=== PATIENT | female | born 1935 | race Caucasian/White ===

== ENCOUNTER → 2016-09-29 | Outpatient (CLI) | payer OTHER, BC ==
[2015-10-02 10:05] VITALS: BP 129/79
--- NOTE | 2016-09-29 12:05 | MRI ---
Indication: Right shoulder pain. Exam: MRI right shoulder without contrast. Technique: Routine multiplanar multisequence imaging was performed through the right shoulder withou t contrast. Comparison: X-rays from 08/17/2013. Findings: The glenohumeral joint is intact. There is a small focal defect in the distal supraspinatu s tendon measuring and least 1.2 cm with slight retraction of the proximal tendon and fluid signal s een throughout the defect . There is mild fluid extending into the surrounding subacromion and subde ltoid bursa. There is mild thickening and increased signal throughout the infraspinatus and subscapu anastasia tendons which are otherwise intact. There is some all subchondral cysts or erosive changes emilio ng the greater tuberosity. No fracture or subluxation is seen. There are moderate hypertrophic purcell es of the AC joint extending inferiorly causing moderate to severe narrowing of the acromiohumeral s pace. The labrum is intact and normal signal intensity. There is mild linear signal in the biceps te ndon which is otherwise intact distally. Impression: Small full-thickness tear of the distal supraspinatus tendon. Moderate infraspinatus and subscapularis tendinopathy. Questionable mild split thickness tear of the biceps tendon . Small joint effusion with mild fluid is extending into the surrounding bursa. Moderate hypertrophic changes of the AC joint extending inferiorly causing moderate to severe narrow ing of the acromiohumeral space. Subchondral cysts or erosive changes along the greater tuberosity. Reported By:
--- NOTE | 2016-09-29 13:25 | MRI ---
HISTORY: Lumbar disc disease, chronic low back pain Study: MRI lumbar spine without contrast Comparison: None Technique: Multiplanar multi-sequence MRI of the lumbar spine was obtained. Sagittal T1, sagittal T 2, and stir weighted images, axial T1, and axial T2 images were obtained. Findings: There is mild lumbar dextroscoliosis. There is grade 1 anterolisthesis of L4 on L5 due to facet dege nerative changes. No abnormal cord or marrow signal identified. The conus terminates at approximate ly T12-L1. The surrounding soft tissues are within normal limits. Vertebral body heights are preser ayan. Multilevel disc space narrowing and spondylosis is present detailed below. T12 -- L1: No significant stenosis identified. L1 -- L2: No significant stenosis identified. Mild to moderate bilateral facet degenerative changes. L2 -- L3: There is a broad-based disc bulge asymmetric to the left with resultant mild to moderate l eft and mild right foraminal narrowing. No significant central canal stenosis. L3 -- L4: There is a broad-based disc bulge and moderate bilateral facet degenerative changes. There is mild bilateral lateral recess and foraminal narrowing. L4 -- L5: There are advanced facet degenerative changes bilaterally with resultant grade 1 anterolis thesis. There is moderate left and moderate to severe right foraminal narrowing as a result as well as mild central canal narrowing with effacement of ventral thecal sac. L5 -- S1: There is a small central annular tear with mild bulging. No significant mass effect. There are facet degenerative changes. No new listhesis. IMPRESSION: 1. At L4-L5 there is moderate left and moderate to severe right foraminal narrowing due to a broad-b ased disc bulge and facet hypertrophic changes. There is also grade 1 anterolisthesis. 2. Mild to moderate left foraminal narrowing at L2-L3. 3. Small annular tear with central disc bulge at L5-S1 without significant mass effect. Reported By:
== END ==
LOC: RAD 09:36
PROVIDERS: ATTEND Internal Medicine
DX: M25.811 Other specified joint disorders, right shoulder (principal); M51.86 Other intervertebral disc disorders, lumbar region
CPT/HCPCS: 72148; 73221

== ENCOUNTER 2016-12-16 09:08 | Emergency (ER) | payer OTHER, BC ==
[2016-12-16 09:18] VITALS: BP 129/63; BMI 28.3
--- NOTE | 2016-12-16 09:24 | DR.EXTPAIN ---
HPI - Time seen Time seen: 09:21 - PCP Primary Care Physician: NEFTALI - Complaint/Symptoms Chief Complaint:: PT. C/O LEFT WRIST, RIGHT LOWER BACK AND RIGHT HIP PAIN S/P FALL. - Nurses notes reviewed Nurses Notes Review: Yes - Source History Provided: Patient, EMS - Mode of arrival Mode of Arrival: EMS - Timing Onset of Chief Complaint: 12/16/16 - Context History of: Arthritis - Associated signs and symptoms Associated Signs and Symptoms: Pain PMH - PMH Past Medical History: Yes Past Medical History: Arthritis, Coronary Artery Disease, GERD Past Medical History Comment: SJOGREN'S SYNDROME, TORN ROTATOR CUFF TO RIGHT SHOULDER Past Surgical History: Yes Surgical History: Angioplasty/Stents, Cholecystectomy, Hysterectomy, Joint Replacement, Ortho Surgery, Tonsillectomy - Family History History of Family Medical Conditions: No - Social History Does patient currently use any type of tobacco product: No Have you used tobacco products in the last 12 months: No Type of Tobacco Use: None Does any household member use tobacco: No Alcohol Use: None Do you use any recreational Drugs:: No Lives With: Spouse Lives Where: Home - infectious screening In the last 2 months have you had wt loss of >10#?: NO Have you had fever, night sweats or hemotysis?: No Have you traveled outside the country in the last 6 months?: No Isolation: Standard ROS - Review of Systems Constitutional: No Symptoms Reported Eyes: No Symptoms Reported ENTM: No Symptoms Reported Respiratoy: No Symptoms Reported Cardiovascular: No Symptoms Reported Gastrointestinal/Abdominal: No Symptoms Reported Genitourinary: No Symptoms Reported Neurological: No Symptoms Reported Musculoskeletal: Wrist (left wrist pain, full rom) Integumentary: Wound (skin tear) Hematologic/Lymphatic: No Symptoms Reported Endocrine: No Symptoms Reported Psychiatric: No Symptoms Reported All Other Systems: Reviewed and Negative PE - General Limitations: No Limitations General Appearance: Alert, In No Apparent Distress - Head Head Exam: Normal Inspection - Eyes Eye exam: Normal Appearance, EOMI. negative: Scleral Icterus, Conjunctival Injection - ENT ENT Exam: Normal Exam, Normal Oropharynx - Neck Neck Exam: Normal Inspection, Full ROM, Trachea Midline - Chest Chest Inspection: Normal Inspection - Respiratory Respiratory Exam: Normal Lung Sounds Bilat. negative: Accessory Muscle Use, Respiratory Distress - Cardiovascular Cardiovascular Exam: Regular Rate - Abdominal Exam Abdominal Exam: Normal Inspection - Extremities Extremities Exam: Normal Inspection, Full ROM, Tenderness (left wrist and right hip) - Upper Extremities Shoulder Exam: Normal Inspection Arm Exam: Normal Inspection, Full ROM. negative: Swelling Elbow Exam: Normal Inspection Forearm Exam: Normal Inspection Hand Exam: Normal Inspection, Full ROM, Tenderness (left wrist). negative: Swelling, Abrasion Neuromotor Exam: Normal Exam Neurosensory Exam: Normal Exam - Lower Extremities Hip/Pelvis Exam: Normal Inspection Upper Leg Exam: Normal Inspection Knee Exam: Normal Inspection, Full ROM. negative: Tenderness, Swelling, Abrasion Lower Leg Exam: Normal Inspection, Full ROM. negative: Tenderness, Swelling Ankle Exam: Normal Inspection, Full ROM. negative: Tenderness, Swelling, Abrasion, Ecchymosis Neurovascular/Tendon Exam: Normal Capillary Refill Gait Exam: Not Tested/Not Observed - Back Back Exam: Normal Inspection, Tenderness - Neurological Neurological Exam: Alert, Oriented X3, CN II-XII Intact - Psychiatric Psychiatric Exam: Normal Mood - Skin Skin Exam: Intact, Normal Color - Discharge Plan Condition: Stable Prescriptions: Hydrocodone-Acet 5 mg/325 mg [[place] 5/325 mg Tab] 1 tab PO Q8H PRN #12 tab PRN Reason: Ibuprofen [MOTRIN TAB 600 MG *] 600 mg PO BID PRN #14 tab PRN Reason: Pain/Inflammation - Follow ups/Referrals Follow ups/Referrals: Brendan Mccollum [Primary Care Provider] - 3 days STARLA HAYWARD [STAFF PHYSICIAN] - 12/17/16 - Instructions Instructions: Wrist Fracture, [id number], Skin Tear Care, [id number], Back Pain, Adult, [id number], Hip Pain Additional Instructions: RETURN TO ED IF WORSE.
--- NOTE | 2016-12-16 09:37 | RAD ---
HISTORY: Injury, fall, left wrist pain Study: Left wrist three view Comparison: None Findings: There is some dorsal soft tissue swelling present. There appears to be trabecular disruption involvi ng the metaphysis of the distal radius suggestive of a nondisplaced fracture. The distal ulna is int act. The carpal bones are intact and normally aligned. There is some degenerative joint disease on t he radial side of the carpus. IMPRESSION: Trabecular disruption involving the metaphysis of the distal radius likely representing a nondisplac ed metaphysis heel fracture Dorsal soft tissue swelling Degenerative joint disease as described Reported By:
[2016-12-16] MEDS ORDERED: ZOFRAN INJ 4 MG VIAL IVP ONE (10:01)
[2016-12-16] MEDS ORDERED: DEMEROL INJ IVP ONE (10:01)
--- NOTE | 2016-12-16 10:02 | RAD ---
History: Right hip pain after fall Study: AP pelvis and frog-leg right hip Comparison: None Findings: There is no fracture or dislocation. There is mild osteophyte formation about the right hi p. The pubic rami are intact. No pelvic fracture is demonstrated. Impression: Mild right hip osteoarthritis, no evidence for fracture. Reported By:
[2016-12-16] MEDS ORDERED: ZOFRAN INJ 4 MG VIAL ONE (10:03)
[2016-12-16] MEDS ORDERED: DEMEROL INJ ONE (10:04)
== END 2016-12-16 11:41 | disposition home or self-care (01) ==
LOC: ER 09:08
DX: M25.532 Pain in left wrist (principal); M54.5 Low back pain; M25.551 Pain in right hip
CPT/HCPCS: 29125; 73100; 73501; 96365; 96374; 96375; 99282; 99283; J2175; J2405

== ENCOUNTER → 2017-01-07 | Outpatient (CLI) | payer OTHER, BC ==
[2016-12-16 09:18] VITALS: BP 129/63
--- NOTE | 2017-01-11 08:37 | MRI ---
HISTORY: Low back pain, paresthesias Study: MRI lumbar spine without contrast Comparison: September 29, 2016 Technique: Multiplanar multi-sequence MRI of the lumbar spine was obtained. Sagittal T1, sagittal T 2, and stir weighted images, axial T1, and axial T2 images were obtained. Findings: There is minimal anterolisthesis L4 on L5. The lumbar spine demonstrates otherwise normal alignment with the expected signal characteristics of the bone marrow with the exception of increased T2 signa l in a compression fracture of L1 which is new since the prior examination and likely recent. The co nus of the cord terminates normally. T12 -- L1: There is no evidence for compressive disc disease. However the posterior aspect of the co mpressed vertebral body contributes to moderate canal stenosis and significant lateral recess and so me foraminal narrowing on the right. L1 -- L2: No evidence for compressive disc disease. The neural foramina are patent. Bilateral facet arthropathy is present. L2 -- L3: Circumferential disk bulging causes thecal sac effacement and contributes along with bilat eral facet arthropathy to lateral recess and foraminal narrowing bilaterally right greater than left . L3 -- L4: Circumferential disk bulging effaces the thecal sac and contributes along with bilateral f acet arthropathy and ligamentous hypertrophy to a relative spinal stenosis with lateral recess and f oraminal narrowing bilaterally. L4 -- L5: There is minimal anterolisthesis L4 on L5 which contributes along with diffuse disc bulgin g and ligamentous hypertrophy to a relative spinal stenosis with lateral recess and foraminal narrow ing bilaterally worse than at the level above. Bilateral facet arthropathy is present. L5 -- S1: Minimal noncompressive disc bulging is present contributing to lateral recess narrowing on the right. The left neural foramen is patent. The joints are normal. IMPRESSION: As above Reported By:
== END | disposition home or self-care (01) ==
LOC: RAD 14:48
PROVIDERS: ATTEND Internal Medicine
DX: M54.5 Low back pain (principal); M54.6 Pain in thoracic spine; X58.XXXD Exposure to other specified factors, subsequent encounter; M48.06 Spinal stenosis, lumbar region; M12.88 Other specific arthropathies, not elsewhere classified, other specified site
CPT/HCPCS: 72148

== ENCOUNTER → 2017-01-08 | Outpatient (CLI) | payer OTHER, BC ==
[2016-12-16 09:18] VITALS: BP 129/63
== END | disposition home or self-care (01) ==
LOC: RAD 10:47
PROVIDERS: ATTEND Internal Medicine
DX: M54.5 Low back pain (principal); M54.6 Pain in thoracic spine; S32.010A Wedge compression fracture of first lumbar vertebra, initial encounter for closed fracture; X58.XXXA Exposure to other specified factors, initial encounter
CPT/HCPCS: 72146

== ENCOUNTER → 2017-01-14 | Outpatient (CLI) | payer OTHER, BC ==
[2016-12-16 09:18] VITALS: BP 129/63
[2017-01-14 15:23] LABS: BASOPHILS % (AUTO) 0.6 % (0.2-1.0); EOSINOPHILS # (AUTO) 0.1 x10^3/uL (0.0-0.2); EOSINOPHILS % (AUTO) 1.1 % (0.9-2.9); HEMATOCRIT 41.3 % (36.0-47.0); HEMOGLOBIN 14.1 g/dL (12.0-16.0); LYMPHOCYTES # (AUTO) 1.9 X10^3/uL (1.3-2.9); MEAN CORPUSCULAR HEMOGLOBIN 31.2 pg (27.0-34.0); MEAN CORPUSCULAR HGB CONC 34.1 g/dL (33.0-35.0); MEAN CORPUSCULAR VOLUME 91.5 fL (80.0-100.0); MEAN PLATELET VOLUME 7.3 fL (7.4-11.0); MONOCYTES # (AUTO) 0.4 x10^3/uL (0.3-0.8); MONOCYTES % (AUTO) 8.9 % (0.0-13.0); NEUTROPHILS # (AUTO) 2.6 x10^3/uL (2.2-4.8); NEUTROPHILS % (AUTO) 52.4 % (42.0-75.0); PLATELET COUNT 174 X10^3/uL (150.0-450.0); RED BLOOD COUNT 4.52 X10^6/uL (3.5-5.4); RED CELL DISTRIBUTION WIDTH 14.5 % (11.6-16.5)
[2017-01-14 15:32] LABS: BILIRUBIN,URINE NEGATIVE (NEGATIVE); BLOOD/HEMOGLOBIN,URINE 1+ (NEGATIVE); GLUCOSE, URINE NEGATIVE (NEGATIVE); KETONES,URINE NEGATIVE (NEGATIVE); LEUKOCYTE ESTERASE ,URINE 1+ (NEGATIVE); NITRITES,URINE NEGATIVE (NEGATIVE); UROBILINOGEN,URINE NORMAL (NORMAL)
--- NOTE | 2017-01-14 15:32 | RAD ---
HISTORY: Preop. Study: PA and lateral chest. Comparison: Chest x-ray dated November 06, 2012. Findings: The trachea is midline. The cardiac silhouette is unremarkable. Ectatic thoracic aorta with calcifi cation at the aortic knob. Left basilar scarring versus atelectasis appears unchanged. The lungs ar e clear without focal infiltrate or effusion. The bony thorax is unremarkable. IMPRESSION: 1. No acute cardiopulmonary disease. Reported By:
[2017-01-14 15:38] LABS: PROTEIN,URINE NEGATIVE (NEGATIVE)
[2017-01-14 15:44] LABS: ALANINE AMINOTRANSFERASE 33 Units/L (12-78); ALBUMIN 3.7 g/dL (3.4-5.0); ALKALINE PHOSPHATASE 124 Units/L (46-116); ASPARTATE AMINO TRANSFERASE 26 Units/L (15-37); BLOOD UREA NITROGEN 11 mg/dL (7-18); CALCIUM 9.6 mg/dL (8.5-10.1); CARBON DIOXIDE 29.7 mmol/L (21-32); CHLORIDE 106 mmol/L (98-107); CREATININE 0.84 mg/dL (0.55-1.02); GLUCOSE 91 mg/dL (65-99); SODIUM 138 mmol/L (136-145); TOTAL PROTEIN 7.2 g/dL (6.4-8.2); eGFR BLACK RACES > 60 (>60); eGFR NON BLACK RACES > 60 (>60)
[2017-01-14 16:13] LABS: APPEARANCE,URINE CLEAR (CLEAR); COLOR,URINE PALE YELLOW (YELLOW)
[2017-01-14 16:14] LABS: BACTERIA,URINE TRACE /HPF (NEGATIVE); RBC,URINE RARE /HPF (NEGATIVE); SQUAMOUS EPITHELIAL CELL,UR FEW /HPF (NEGATIVE)
== END | disposition home or self-care (01) ==
LOC: LAB 14:38
PROVIDERS: ATTEND Specialist
DX: Z01.818 Encounter for other preprocedural examination (principal); Z01.810 Encounter for preprocedural cardiovascular examination; Z01.811 Encounter for preprocedural respiratory examination; Z79.899 Other long term (current) drug therapy; Z11.8 Encounter for screening for other infectious and parasitic diseases; S52.532S Colles' fracture of left radius, sequela; X58.XXXS Exposure to other specified factors, sequela
CPT/HCPCS: 36415; 71020; 80053; 81001; 85025; 87641; 93005; 93010

== ENCOUNTER 2017-01-20 08:55 | Day surgery (SDC) | payer OTHER, BC ==
[~2017-01-20 08:55] MED LIST: ANCEF VIAL 1 GM ONE; D5 LR 1000 ML 1,000 ML IV ONE; NS 50 ML IV + SPIKE MINIBAG* 50 ML IV ONE; XYLOCAINE-MPF 1% ONE
[2017-01-20] MEDS ORDERED: D5 LR 1000 ML 1,000 ML IV ONE (09:06)
[2017-01-20] MEDS ORDERED: FENTANYL INJ 100 mcg ONE (09:39)
[2017-01-20] MEDS ORDERED: NS IRRIGATION 1000 ML 1,000 ML IR ONE (09:59)
[2017-01-20] MEDS ORDERED: MARCAINE 0.25% WITH EPI IJ ONE (09:59)
[2017-01-20 12:35] VITALS: BP 112/66
[2017-01-20] MEDS ORDERED: VERSED ONE (15:07)
[2017-01-20] MEDS ORDERED: XYLOCAINE 2 % (PLAIN) ONE (15:07)
[2017-01-20] MEDS ORDERED: KETALAR ONE (15:07)
[2017-01-20] MEDS ORDERED: DIPRIVAN VIAL ONE (15:07)
== END 2017-01-20 11:55 | disposition home or self-care (01) | DRG 517 ==
LOC: SURG1 08:55
PROVIDERS: ATTEND Specialist
PROC: 0QU03JZ Supplement Lumbar Vertebra with Synthetic Substitute, Percutaneous Approach (ICD-10-PCS; 2017-01-20)
PROC: 0QS03ZZ Reposition Lumbar Vertebra, Percutaneous Approach (ICD-10-PCS; principal; 2017-01-20 10:00)
DX: S32.010A Wedge compression fracture of first lumbar vertebra, initial encounter for closed fracture (principal); X58.XXXA Exposure to other specified factors, initial encounter
CPT/HCPCS: 76000; 99100; A4222; S0020; J0690; J2001; J2250; J3010; J3490; J7120

== ENCOUNTER → 2017-01-29 | Outpatient (CLI) | payer OTHER, BC ==
[2017-01-20 12:35] VITALS: BP 112/66
--- NOTE | 2017-01-29 10:35 | RAD ---
HISTORY: Back pain, lumbar compression fracture Study: Lumbar spine five view Comparison: MRI lumbar spine January 07, 2017 Findings: The bones are osteopenic. There is slight anterolisthesis L4 on L5 secondary to facet degenerative j oint disease. The alignment is otherwise normal. There is a compression fracture of L1 which has bee n treated with kyphoplasty since the prior MRI examination. There is mild compression of the superio r endplate of T12 which appears to be new when compared with the prior MRI. No spondylolysis is iden tified. Facet degenerative joint disease is present in the lower lumbar spine. Degenerative disc dis ease is present L1-2, L5-S1. The pedicles are intact. The SI joints are normal. IMPRESSION: Mild compression of the superior endplate of T12 which appears new when compared with the prior MRI Osteopenia Facet degenerative joint disease Degenerative disc disease L1-2, L5-S1 Reported By:
== END | disposition home or self-care (01) | DRG 552 ==
LOC: RAD 09:22
PROVIDERS: ATTEND Specialist
DX: S32.010A Wedge compression fracture of first lumbar vertebra, initial encounter for closed fracture (principal); X58.XXXA Exposure to other specified factors, initial encounter; M51.36 Other intervertebral disc degeneration, lumbar region; M51.37 Other intervertebral disc degeneration, lumbosacral region; M47.896 Other spondylosis, lumbar region
CPT/HCPCS: 72110

== ENCOUNTER → 2017-02-01 | Outpatient (CLI) | payer OTHER, BC ==
[2017-01-20 12:35] VITALS: BP 112/66
[~2017-02-01] MED LIST changes: -ANCEF VIAL 1 GM ONE; -D5 LR 1000 ML 1,000 ML IV ONE; +NS 100 ML IV 100 ML IV ONE; -NS 50 ML IV + SPIKE MINIBAG* 50 ML IV ONE; -XYLOCAINE-MPF 1% ONE
--- NOTE | 2017-02-01 17:15 | CT ---
HISTORY: Right-sided pain. Study: CT abdomen and pelvis with contrast Comparison: None available. Technique: Multiple axial images of the abdomen and pelvis were obtained from the lung bases to the pubic symph ysis after the administration of IV contrast. Dose reduction techniques including Automated Exposur e Control (AEC) and adjustment of mA and kV were utilized. Findings: Bibasilar scarring versus atelectasis. Otherwise, the visualized portions of the lung bases are unre markable. Small hiatal hernia. Diffuse fatty infiltration of the liver. There is slight prominence o f the pancreatic duct within the pancreatic head as it enters the duodenum. Surrounding soft tissue stranding. No obvious mass. The spleen, kidneys, and adrenal glands are unremarkable in their CT ap pearance. The gallbladder is surgically absent. No pathologic lymphadenopathy, free air, or signifi cant free fluid. The majority of the bowel is collapsed and inadequately evaluated. Scattered coloni c diverticula without evidence of diverticulitis. Focal thickening of the distal rectum and anus wit h associated soft tissue stranding. The remaining large and small bowel are otherwise unremarkable. The uterus and ovaries are surgically absent. The urinary bladder is grossly unremarkable. Remote co mpression fracture of L1 status post vertebroplasty. Remaining osseous structures appear intact. IMPRESSION: 1. Slight prominence of the pancreatic duct with associated soft tissue stranding. No obvious mass. This may represent early acute pancreatitis. Recommend clinical/laboratory correlation. 2. Focal thickening of the distal rectum and anus with associated soft tissue stranding. While this may represent multiple hemorrhoids, underlying neoplasm not entirely excluded. Recommend direct visu alization for further characterization. 3. Other chronic findings as above. Reported By:
== END | disposition home or self-care (01) ==
LOC: RAD 16:09
PROVIDERS: ATTEND Internal Medicine
DX: K57.32 Diverticulitis of large intestine without perforation or abscess without bleeding (principal); Z90.710 Acquired absence of both cervix and uterus
CPT/HCPCS: 74177; A4222

== ENCOUNTER 2017-02-08 11:48 | Day surgery (SDC) | payer OTHER, BC ==
[2017-02-08] MEDS ORDERED: KENALOG INJ 40 MG ONE (12:23)
[2017-02-08] MEDS ORDERED: XYLOCAINE-MPF 1% ONE (12:23)
[2017-02-08] MEDS ORDERED: MARCAINE 0.25% WITH EPI IJ ONE (12:23)
[2017-02-08 13:38] VITALS: BP 105/74
== END 2017-02-08 13:20 | disposition home or self-care (01) | DRG 552 ==
LOC: SURG1 11:48
PROVIDERS: ATTEND Specialist
PROC: 3E0R33Z Introduction of Anti-inflammatory into Spinal Canal, Percutaneous Approach (ICD-10-PCS; principal; 2017-02-08 12:00)
PROC: B01BZZZ Fluoroscopy of Spinal Cord (ICD-10-PCS; principal; 2017-02-08 12:00)
PROC: 3E0R3BZ Introduction of Anesthetic Agent into Spinal Canal, Percutaneous Approach (ICD-10-PCS; principal; 2017-02-08 12:00)
DX: M54.16 Radiculopathy, lumbar region (principal)
CPT/HCPCS: 62323; 76000; S0020; J3301

== ENCOUNTER → 2017-06-28 | Outpatient (CLI) | payer OTHER, BC ==
[2017-06-28 09:49] LABS: CREATININE 0.89 mg/dL (0.55-1.02)
--- NOTE | 2017-06-29 19:08 | CT ---
HISTORY: Follow up thoracic aneurysm. Study: CTA chest with contrast Comparison: CT chest dated June 08, 2016. Technique: Multiple axial images of the chest were obtained from the thoracic inlet to the upper abdo men after the administration of IV contrast. 3D reformat images were performed. Dose reduction techni ques including Automated Exposure Control (AEC) and adjustment of mA and kV were utilized. Findings: The mediastinum does not demonstrate significant pathological lymphadenopathy. Aneurysmal dilatation of the thoracic aortic root to 4.7 cm without evidence of dissection or intramural hematoma. This russ ears unchanged given technique. Mild atherosclerotic vascular calcifications of the thoracic aorta an d mild to moderate atherosclerotic vascular calcifications of the coronary arteries. The central pul monary arterial system does not demonstrate central filling defects to suggest pulmonary emboli. Bibasilar scarring versus atelectasis. No obvious pulmonary nodule, mass, pleural effusion, focal con solidation, or pneumothorax. The upper abdominal structures appear unchanged. Interval compression fr actures of the lower thoracic spine with vertebroplasty changes. Remaining osseous structures appear normal for age. No aggressive osseous lesions. IMPRESSION: 1. Stable appearance of a 4.7 cm thoracic aortic aneurysm without evidence of dissection. 2. Other chronic findings as above. Reported By:
== END ==
LOC: RAD 09:17
PROVIDERS: ATTEND Thoracic Surgery (Cardiothoracic Vascular Surgery)
DX: I71.2 Thoracic aortic aneurysm, without rupture (principal)
CPT/HCPCS: 36415; 71275; 82565; 84520; A4222

== ENCOUNTER 2017-11-18 13:02 | Day surgery (SDC) | payer OTHER, BC ==
[2017-11-18] MEDS ORDERED: MARCAINE 0.5% ONE (13:13)
[2017-11-18] MEDS: KENALOG INJ 40 MG IM ONE ×2 (13:19→13:51)
[2017-11-18] MEDS: XYLOCAINE 1 % (PLAIN) ONE ×2 (13:20→13:49)
--- NOTE | 2017-11-18 13:31 | DR.H&P ---
H&P - History & Physical for Day of: H&P Date: 11/18/17 - Chief Complaint Chief Complaint: my lower back hurts - Allergies Allergies/Adverse Reactions: Allergies Allergy/AdvReac Type Severity Reaction Status Date / Time MS Caffeine [Caffeine] Allergy Mild Verified 11/06/12 22:04 MS Phenobarbital Allergy Mild Verified 11/06/12 22:14 [Phenobarbital] MS Albuterol [Albuterol] Allergy Verified 11/06/12 22:04 - History of Present Illness History of Present Illness: long hx of back pain. L1-2 right carolyn 02/01 with fair relief. presents today with non-radiating axial pain in lower back. facet joint arthritis as per mri. pt states pain is different location and area than previous injection. will proceed with L23,3-4 facet injection on left - Past Medical History Past Medical History: Arthritis, Coronary Artery Disease, GERD - Past Surgical History Surgical History: Angioplasty/Stents, Cholecystectomy, Hysterectomy, Joint Replacement, Ortho Surgery, Tonsillectomy - Social History Alcohol Use: None Drug Use: None - Physical Exam Vital Signs: Temperature 98.3 F Pulse Rate 83 Respiratory Rate 18 Blood Pressure 156/94 O2 Sat by Pulse Oximetry 97 Musculoskeletal: Back:Lumbar (previous L1 kyphoplasty, pain on palpation lspine , pain on standing relieved with supination) Psychiatric: Normal Mood Description: Calm - Assessment/Plan (1) Low back pain Status: Acute Plan: L2-3, 3-4 facet injection left
[2017-11-18] MEDS ORDERED: MARCAINE 0.25% INJ ONE (13:43)
[2017-11-18 14:14] VITALS: BP 149/68
== END 2017-11-18 14:10 | disposition home or self-care (01) | DRG 552 ==
LOC: SURG1 13:02
PROVIDERS: ATTEND Internal Medicine
PROC: 3E0R3BZ Introduction of Anesthetic Agent into Spinal Canal, Percutaneous Approach (ICD-10-PCS; principal; 2017-11-18 13:00)
PROC: 3E0R33Z Introduction of Anti-inflammatory into Spinal Canal, Percutaneous Approach (ICD-10-PCS; principal; 2017-11-18 13:00)
DX: M54.5 Low back pain (principal)
CPT/HCPCS: 76000; S0020; J2001; J3301

== ENCOUNTER 2020-08-03 23:46 | Observation (INO) ==
[2020-08-04 00:52] LABS: BASOPHILS % (AUTO) 0.6 % (0.2-1.0); EOSINOPHILS % (AUTO) 0.3 % (0.9-2.9); HEMATOCRIT 41.8 % (36.0-47.0); HEMOGLOBIN 13.8 g/dL (12.0-16.0); LYMPHOCYTES % (AUTO) 41.1 % (21.0-51.0); MEAN CORPUSCULAR HEMOGLOBIN 31.5 pg (27.0-34.0); MEAN CORPUSCULAR HGB CONC 33.1 g/dL (33.0-35.0); MEAN CORPUSCULAR VOLUME 95.1 fL (80.0-100.0); MEAN PLATELET VOLUME 7.4 fL (7.4-11.0); MONOCYTES # (AUTO) 0.5 x10^3/uL (0.3-0.8); NEUTROPHILS # (AUTO) 2.3 x10^3/uL (2.2-4.8); PLATELET COUNT 158 X10^3/uL (150.0-450.0); RED BLOOD COUNT 4.39 X10^6/uL (3.5-5.4); RED CELL DISTRIBUTION WIDTH 14.7 % (11.6-16.5); WHITE BLOOD COUNT 4.9 X10^3/uL (3.6-10.0)
[2020-08-04] MEDS ORDERED: CARDIZEM INJ 50 MG VIAL IVP ONE (01:08)
--- NOTE | 2020-08-04 01:09 | DR.CP ---
HPI - Time Seen Time seen: 01:04 - PCP Primary Care Physician: NEFTALI - Complaint Chief Complaint Doctor Comments: Patient states she went into atrial fibrillation around 11:30 when she was going to bed about 1 1/2 hours ago with problems breathing and feeling like she had just ran two miles with SOB and chest discomfort. states she is a patient of Dr. Mccollum and her waxing machine operator is Dr. Christine. states she has been taking Xarelto and Tikosyn twice daily for her atrial fibrillation but she took three pills tonight. She denies tobacco, alcohol or drug usage. She deneis cold, cough, fever or chills. States she has not been around anyone with the COVID virus. states she has had one COVID vaccination already. she denies problems with her smell or taste. Patient states she has had an aortic aneurysm for about five years that is being monitored by doctors in [place]. Spouse states they decided not to do anything about it presently. Chief Complaint:: PT AMBULATORY IN ED WITH C/O BEING IN A-FIB. PT TOOK AND EXTRA TIKOSYN TONIGHT. - COVID-19 Coronavirus risk:travel/contact w/high risk person: No Has patient experienced Coronavirus symptoms: No Coronavirus symptoms experienced: Shortness of Breath - Reviewed Nurses Notes Review: Yes - Source History Provided: Patient - Mode of Arrival Mode of Arrival: Ambulatory - Timing Onset of Chief Complaint: 08/03/20 Came on: Suddenly Pain: Present Now - Duration Duration: Constant How lon Duration: Hours - Location Location of Chest Pain: Chest Chest Pain Radiation Location: None - Context Onset: At rest Cardiac Risk Factors: HTN PE Risk Factors: None History of: Similar pain in the past Prehospital Care: None - Quality Quality: Pressure like - Severity Severity: Mild - Modifying Factors Worsens: Nothing Impoves: Nothing - Associated Signs and Symptoms Associated Signs and Symptoms: Shortness of Breath, Palpitations PMH - PMH Past Medical History: Yes Past Medical History: Coronary Artery Disease, GERD, Arthritis Past Medical History Comment: A-FIB Past Surgical History: Yes Surgical History: Angioplasty/Stents, Cholecystectomy, Hysterectomy, Joint Replacement, Ortho Surgery, Tonsillectomy - Family History History of Family Medical Conditions: Yes Family Medical History: Cancer - Social History Does patient currently use any type of tobacco product: No Have you used tobacco products in the last 12 months: No Type of Tobacco Use: None Does any household member use tobacco: No Alcohol Use: None Do you use any recreational Drugs:: No Lives With: Spouse Lives Where: Home - infectious screening In the last 2 months have you had wt loss of >10#?: NO Have you had fever, night sweats or hemotysis?: No Have you traveled outside the country in the last 6 months?: No Isolation: Standard ROS - Review of Systems Constitutional: No Symptoms Reported Eyes: No Symptoms Reported ENTM: No Symptoms Reported Respiratoy: No Symptoms Reported, Short of Breath Cardiovascular: No Symptoms Reported, Chest Pain, Palpitations Gastrointestinal/Abdominal: No Symptoms Reported. negative: See HPI, Abdominal Pain, Constipation, Diarrhea, Nausea, Vomiting, Food Intolerance, Other Genitourinary: No Symptoms Reported. negative: See HPI, Discharge, Dysuria, Frequency, Hematuria, Pain, Bleeding, Other Neurological: No Symptoms Reported Musculoskeletal: No Symptoms Reported Integumentary: No Symptoms Reported. negative: See HPI, Change in Color, Change in Hair/Nails, Dryness, Lesions, Lumps, Rash, Itching, Wound, Bruises, Juandice, Other Hematologic/Lymphatic: No Symptoms Reported. negative: See HPI, Anemia, Blood Clots, Easy Bleeding, Easy Bruising, Swollen Glands, Lymphadenopathy, Other Endocrine: No Symptoms Reported Psychiatric: No Symptoms Reported. negative: See HPI, Anxiety, Depression, Hallucinations, Excessive crying, Suicidal, Other PE - General Limitations: No Limitations General Appearance: Alert, In Distress (slight) - Head Head Exam: Normal Inspection, Atraumatic, Normocephalic - Eyes Eye exam: Normal Appearance, PERRL, EOMI. negative: Scleral Icterus, Conjunctival Injection, Nystagmus, Miosis, Mydrasis, Periorbital Swelling, Periorbital Tenderness, Other - ENT ENT Exam: Normal Exam, Normal Oropharynx, Normal External Ear Exam, Mucous Membranes Moist, TM's Normal Bilaterally - Chest Chest Inspection: Normal Inspection, Symmetric Chest Wall Rise - Respiratory Respiratory Exam: Normal Lung Sounds Bilat Respiratory Exam: Bilateral Clear to Auscultation - Cardiovascular Cardiovascular Exam: Regular Rate, Tachycardia, Irregular Rhythm, Normal Heart Sounds, Systolic Murmur Pulse: Normal Edema: Normal - Abdominal Exam Abdominal Exam: Normal Inspection, Normal Bowel Sounds, Soft. negative: Distention, Tenderness, Guarding, Rebound, Rigidity, Dimnished Bowel Sounds, Hyperactive Bowel Sounds, Hypoactive Bowel Sounds, Organomegaly, Trauma, Incision, Ascites, Mass, Bruit, Pulsatile Mass, Hernia, Other Abdominal Tenderness: negative: RUQ, RLQ, LUQ, LLQ, Epigastrium, Suprapubic, Diffuse, Mild, Moderate, Severe, Other - Extremities Extremities Exam: Normal Inspection, Full ROM, Normal Capillary Refill. negativ e: Tenderness, Edema, Joint Swelling, Calf Tenderness, Other - Back Back Exam: Normal Inspection, Full ROM. negative: Tenderness, (R) CVA Tenderness, (L) CVA Tenderness, Muscle Spasm, Paraspinal Tenderness, Vertebral Tenderness, Rashes, (R) Sciatic Notch Tenderness, (L) Sciatic Notch Tendern, (R) Straight Leg Raise, (L) Straight Leg Raise, Other - Neurologic Neurological Exam: Alert, Oriented X3, CN II-XII Intact, Normal Gait, Reflexes Normal - Psychiatric Psychiatric Exam: Normal Affect, Normal Mood - Skin Skin Exam: Warm, Dry, Intact, Normal Color. negative: Rash, Cyanosis, Diaphoresis, Erythema, Pallor, Mottled, Other - Vitals Vitals: Temperature 98.1 F Pulse Rate 109 Respiratory Rate 21 Blood Pressure 124/58 O2 Sat by Pulse Oximetry 94 Course - Reevaluation 1st: Improved - Consultation Called: 04:00 Call Returned: 04:00 (Dr. Hubbard to admit) - Education/Counseling Education/Counseling: Patient, Family Educated On: Treatment, Diagnosis, Needs for Follow Up ROR - Labs Reviewed Laboratory Results Reviewed?: Yes (All labs and x-ray results reviewed and discussed with patient and spouse ) Result Diagrams: 08/03/20 23:50 08/04/20 00:40 - XRAY XRAY Interpreted by: Radiologist (CTA chest: Negatiave CT PE exam for pulmonary embolism. Stable 5 cm aneurysmal dilation ascending thoracic aorta. No acute cardiopulmonary disease.) - EKG Rate: 103 [place]: Normal Rhythm: Afib Block: None ST: Old, Ant, Infarct - Labs Reviewed Laboratory: WBC 4.9 X10^3/uL (3.6-10.0) 08/03/20 23:50 RBC 4.39 X10^6/uL (3.5-5.4) 08/03/20 23:50 Hgb 13.8 g/dL (12.0-16.0) 08/03/20 23:50 Hct 41.8 % (36.0-47.0) 08/03/20 23:50 MCV 95.1 fL (80.0-100.0) 08/03/20 23:50 MCH 31.5 pg (27.0-34.0) 08/03/20 23:50 MCHC 33.1 g/dL (33.0-35.0) 08/03/20 23:50 RDW 14.7 % (11.6-16.5) 08/03/20 23:50 Plt Count 158 X10^3/uL (150.0-450.0) 08/03/20 23:50 MPV 7.4 fL (7.4-11.0) 08/03/20 23:50 Neut % (Auto) 48.0 % (42.0-75.0) 08/03/20 23:50 Lymph % (Auto) 41.1 % (21.0-51.0) 08/03/20 23:50 [place] % (Auto) 10.0 % (0.0-13.0) 08/03/20 23:50 Eos % (Auto) 0.3 % (0.9-2.9) L 08/03/20 23:50 Baso % (Auto) 0.6 % (0.2-1.0) 08/03/20 23:50 Neut # (Auto) 2.3 x10^3/uL (2.2-4.8) 08/03/20 23:50 Lymph # (Auto) 2.0 X10^3/uL (1.3-2.9) 08/03/20 23:50 [place] # (Auto) 0.5 x10^3/uL (0.3-0.8) 08/03/20 23:50 Eos # (Auto) 0.0 x10^3/uL (0.0-0.2) 08/03/20 23:50 Baso # (Auto) 0.0 X10^3/uL (0.0-0.1) 08/03/20 23:50 Absolute Nucleated RBC 0.2 /100WBC 08/03/20 23:50 PT 24.4 SECONDS (11.8-14.3) 08/04/20 00:40 INR Target Range - 08/04/20 00:40 INR 2.27 (0.8-1.3) H 08/04/20 00:40 APTT 46.1 SECONDS (22.9-36.5) H 08/04/20 00:40 PTT Comment - 08/04/20 00:40 D-Dimer 1.26 ug/ml (0.0-0.57) H* 08/04/20 00:40 Sodium 143 mmol/L (136-145) 08/04/20 00:40 Sodium Cancelled 08/04/20 00:40 Corrected Sodium 144 mmol/L (136-145) 08/04/20 00:40 Corrected Sodium Cancelled 08/04/20 00:40 Potassium 4.3 mmol/L (3.5-5.1) 08/04/20 00:40 Potassium Cancelled 08/04/20 00:40 Chloride 108 mmol/L (98-107) H 08/04/20 00:40 Chloride Cancelled 08/04/20 00:40 Carbon Dioxide 26.4 mmol/L (21-32) 08/04/20 00:40 Carbon Dioxide Cancelled 08/04/20 00:40 BUN 18 mg/dL (7-18) 08/04/20 00:40 BUN Cancelled 08/04/20 00:40 Creatinine 0.92 mg/dL (0.55-1.02) 08/04/20 00:40 Creatinine Cancelled 08/04/20 00:40 Est GFR (MDRD) Af Amer > 60 (>60) 08/04/20 00:40 Est GFR (MDRD) Af Amer Cancelled 08/04/20 00:40 Est GFR (MDRD) Non-Af > 60 (>60) 08/04/20 00:40 Est GFR (MDRD) Non-Af Cancelled 08/04/20 00:40 Glucose 121 mg/dL (65-99) H 08/04/20 00:40 Glucose Cancelled 08/04/20 00:40 Calcium 9.8 mg/dL (8.5-10.1) 08/04/20 00:40 Calcium Cancelled 08/04/20 00:40 Corrected Calcium Cancelled 08/04/20 00:40 Corrected Calcium TNP 08/04/20 00:40 Magnesium 2.1 mg/dL (1.7-2.9) 08/04/20 00:40 Total Bilirubin 0.30 mg/dL (0.2-1.0) 08/04/20 00:40 Total Bilirubin Cancelled 08/04/20 00:40 AST 18 Units/L (15-37) 08/04/20 00:40 AST Cancelled 08/04/20 00:40 ALT 20 Units/L (12-78) 08/04/20 00:40 ALT Cancelled 08/04/20 00:40 Alkaline Phosphatase 110 Units/L (46-116) 08/04/20 00:40 Alkaline Phosphatase Cancelled 08/04/20 00:40 Creatine Kinase 49 Units/L (26-192) 08/04/20 00:40 Creatine Kinase Cancelled 08/04/20 00:40 CK-MB (CK-2) < 1.0 ng/mL (0-4.0) 08/04/20 00:40 CK-MB (CK-2) Cancelled 08/04/20 00:40 CK/CKMB % Calc 2.0 % (<4) 08/04/20 00:40 CK/CKMB % Calc Cancelled 08/04/20 00:40 Troponin I < 0.02 ng/mL (0-1.5) 08/04/20 00:40 Troponin I Cancelled 08/04/20 00:40 Total Protein 7.0 g/dL (6.4-8.2) 08/04/20 00:40 Total Protein Cancelled 08/04/20 00:40 Albumin 3.5 g/dL (3.4-5.0) 08/04/20 00:40 Albumin Cancelled 08/04/20 00:40 Globulin 3.5 g/dL (2.5-4.5) 08/04/20 00:40 Globulin Cancelled 08/04/20 00:40 Albumin/Globulin Ratio 1.0 Ratio (1.1-2.1) L 08/04/20 00:40 Albumin/Globulin Ratio Cancelled 08/04/20 00:40 Free T4 1.29 ng/dL (0.76-1.46) 08/04/20 00:40 TSH 3rd Generation 0.285 uIU/mL (0.358-3.74) L 08/04/20 00:40 SARS CoV-2 RNA Rapid KRYSTINA Negative (NEGATIVE) 08/04/20 03:40 Opioid - Opioid Risk Tool Age ([place] box if 16-45): No History of Preadolescent Sexual Abuse: No Total: 0 Total Score Risk Category: Low Risk - Diagnosis Discharge Problem: Atrial fibrillation with RVR, Hyperglycemia, Hyperthyroidism determined by thyroid function test, Essential hypertension Dyspnea Qualifiers: Dyspnea type: shortness of breath Qualified Code(s): R06.02 - Shortness of breath Thoracic aortic aneurysm Qualifiers: Presence of rupture: without rupture Qualified Code(s): I71.2 - Thoracic aortic aneurysm, without rupture - Discharge Plan Disposition: ADMITTED INPATIENT Condition: Stable
[2020-08-04 01:13] LABS: BLOOD UREA NITROGEN 18 mg/dL (7-18); CALCIUM 9.8 mg/dL (8.5-10.1); CARBON DIOXIDE 26.4 mmol/L (21-32); CHLORIDE 108 mmol/L (98-107); COR NA(FOR HYPERGLY) 144 mmol/L (136-145); CREATININE 0.92 mg/dL (0.55-1.02); SODIUM 143 mmol/L (136-145); TROPONIN I < 0.02 ng/mL (0-1.5); eGFR NON BLACK RACES > 60 (>60)
[2020-08-04] MEDS ORDERED: CARDIZEM INJ 50 MG VIAL ONE (01:15)
[2020-08-04 01:28] LABS: ALANINE AMINOTRANSFERASE 20 Units/L (12-78); ALBUMIN 3.5 g/dL (3.4-5.0); ALKALINE PHOSPHATASE 110 Units/L (46-116); ASPARTATE AMINO TRANSFERASE 18 Units/L (15-37); CREATINE KINASE 49 Units/L (26-192); CREATINE KINASE MB < 1.0 ng/mL (0-4.0)
[2020-08-04 01:48] LABS: MAGNESIUM 2.1 mg/dL (1.7-2.9); TSH (3RD GENERATION) 0.285 uIU/mL (0.358-3.74)
[2020-08-04] MEDS ORDERED: KLONOPIN TAB 0.5 MG PO STA ×2 (01:54→01:55)
--- NOTE | 2020-08-04 04:20 | CT ---
HISTORY: [Dyspnea and shortness of breath]. Chest pain, elevated D-dimerStudy: CT angiogram of the chest with contrast, using the CT PE protocol. For this CT pulmonary embolism angiographic protocol, 3D reformats / maximum intensity projections (MIPs) of the pulmonary arterial circulation and pulmonary arteries was performed.Comparison: [08/07/2019].Technique: Multiple CT angiographic axial images of the chest were obtained from the thoracic inlet to the upper abdomen after the administration of IV contrast. For this CT pulmonary embolism angiographic protocol, 3D reformats / maximum intensity projections (MIPs) of the pulmonary arterial circulation and pulmonary arteries was performed.FINDINGS:The thoracic inlet is [unremarkable]. The mediastinum [does not demonstrate pathological lymphadenopathy].There is [no paracardial effusion] observed. Coronary artery calcifications present. Is the thoracic aorta [exhibits aneurysmal dilatation of the ascending thoracic aorta measuring up to 5 cm.]. The central pulmonary arterial system [does not demonstrate central filling defects to suggest pulmonary emboli].Evaluation of the lung parenchyma [the]. [No pulmonary nodule or mass] is identified]. The bony thorax is .unremarkable in its appearance]. The visualized portions of the upper abdomen [are without acute abnormality].IMPRESSION:[Negative CT PE Exam for pulmonary embolism, as detailed above].Stable 5 cm aneurysmal dilatation ascending thoracic aorta.No active cardiopulmonary disease[]Electronically signed by: Italo Hyman (Aug 04, 2020 04:18:25)
[2020-08-04 06:07] VITALS: BMI 24.7
--- NOTE | 2020-08-04 06:09 | RAD ---
HISTORY:Palpitations, atrial fibrillationStudy: Single view chestComparison:06/28/2019Findings:No infiltrate, effusion, or pneumothorax identified.Stable cardiomegaly..The soft tissues are intact .IMPRESSION:1. No acute cardiopulmonary abnormality.Electronically signed by: JUN MADSEN (Aug 04, 2020 06:07:48)
[2020-08-04 06:28] LABS: ALANINE AMINOTRANSFERASE 21 Units/L (12-78); ALBUMIN 3.4 g/dL (3.4-5.0); ALKALINE PHOSPHATASE 97 Units/L (46-116); ASPARTATE AMINO TRANSFERASE 17 Units/L (15-37); BLOOD UREA NITROGEN 15 mg/dL (7-18); CALCIUM 9.8 mg/dL (8.5-10.1); CARBON DIOXIDE 26.7 mmol/L (21-32); CHLORIDE 109 mmol/L (98-107); CHOL/HDL RATIO 4.8 (0.0-5.0); CHOLESTEROL 257 mg/dL (0-200); CKMB % 3.3 % (<4); CREATINE KINASE 40 Units/L (26-192); CREATINE KINASE MB 1.3 ng/mL (0-4.0); CREATININE 0.82 mg/dL (0.55-1.02); HDL CHOLESTEROL 54 mg/dL (40-60); SODIUM 145 mmol/L (136-145); TOTAL PROTEIN 6.9 g/dL (6.4-8.2); TRIGLYCERIDES 105 mg/dL (0-150); TROPONIN I < 0.02 ng/mL (0-1.5); eGFR NON BLACK RACES > 60 (>60)
[2020-08-04] MEDS: XARELTO PO SCH (08:51)
[2020-08-04] MEDS ORDERED: DOFETILIDE 250 MCG PO SCH (09:00)
[2020-08-04] MEDS ORDERED: KLONOPIN TAB 0.5 MG PO SCH ×2 (09:00→21:00)
[2020-08-04] MEDS ORDERED: LIPITOR TAB 10 MG PO SCH (09:00)
[2020-08-04] MEDS ORDERED: RIVAROXABAN 20 MG PO SCH (09:00)
[2020-08-04] MEDS ORDERED: ATORVASTATIN CALCIUM 10 MG PO SCH (09:00)
[2020-08-04] MEDS ORDERED: CLONAZEPAM 0.5 MG PO SCH (09:00)
[2020-08-04] MEDS ORDERED: KLONOPIN TAB 0.5 MG PO PRN (10:28)
[2020-08-04] MEDS: PROTONIX TAB 40 MG PO SCH ×2 (10:43→20:40)
[2020-08-04 10:54] LABS: CKMB % 3.6 % (<4); CREATINE KINASE 39 Units/L (26-192); CREATINE KINASE MB 1.4 ng/mL (0-4.0); TROPONIN I < 0.02 ng/mL (0-1.5)
[2020-08-04 17:11] LABS: CKMB % 2.8 % (<4); CREATINE KINASE 36 Units/L (26-192); TROPONIN I < 0.02 ng/mL (0-1.5)
[2020-08-04] MEDS: DOFETILIDE PO SCH (20:40)
[2020-08-04] MEDS ORDERED: PROTONIX TAB 40 MG PO SCH (21:00)
[2020-08-05 06:28] LABS: BASOPHILS % (AUTO) 0.7 % (0.2-1.0); EOSINOPHILS # (AUTO) 0.1 x10^3/uL (0.0-0.2); EOSINOPHILS % (AUTO) 1.4 % (0.9-2.9); HEMATOCRIT 39.8 % (36.0-47.0); HEMOGLOBIN 13.5 g/dL (12.0-16.0); LYMPHOCYTES % (AUTO) 45.4 % (21.0-51.0); MEAN CORPUSCULAR HEMOGLOBIN 31.8 pg (27.0-34.0); MEAN CORPUSCULAR HGB CONC 33.9 g/dL (33.0-35.0); MEAN CORPUSCULAR VOLUME 93.9 fL (80.0-100.0); MEAN PLATELET VOLUME 7.7 fL (7.4-11.0); MONOCYTES # (AUTO) 0.5 x10^3/uL (0.3-0.8); MONOCYTES % (AUTO) 12.1 % (0.0-13.0); NEUTROPHILS # (AUTO) 1.7 x10^3/uL (2.2-4.8); NEUTROPHILS % (AUTO) 40.4 % (42.0-75.0); PLATELET COUNT 148 X10^3/uL (150.0-450.0); RED BLOOD COUNT 4.24 X10^6/uL (3.5-5.4); RED CELL DISTRIBUTION WIDTH 14.8 % (11.6-16.5); WHITE BLOOD COUNT 4.3 X10^3/uL (3.6-10.0)
[2020-08-05 06:37] LABS: ALANINE AMINOTRANSFERASE 18 Units/L (12-78); ALKALINE PHOSPHATASE 75 Units/L (46-116); ASPARTATE AMINO TRANSFERASE 17 Units/L (15-37); BLOOD UREA NITROGEN 16 mg/dL (7-18); CALCIUM 9.5 mg/dL (8.5-10.1); CARBON DIOXIDE 27.7 mmol/L (21-32); CHLORIDE 110 mmol/L (98-107); COR CA(FOR HYPOALB) 10.3 mg/dL (8.5-10.1); CREATININE 1.02 mg/dL (0.55-1.02); SODIUM 144 mmol/L (136-145); TOTAL PROTEIN 6.2 g/dL (6.4-8.2); eGFR NON BLACK RACES 55 (>60)
[2020-08-05] MEDS: XARELTO PO SCH (08:30)
[2020-08-05] MEDS: DOFETILIDE PO SCH (08:30)
[2020-08-05] MEDS: PROTONIX TAB 40 MG PO SCH (08:30)
[2020-08-05 09:07] VITALS: BP 106/68
[2020-08-05 10:07] LABS: BILIRUBIN,URINE NEGATIVE (NEGATIVE); BLOOD/HEMOGLOBIN,URINE 3+ (NEGATIVE); GLUCOSE, URINE NEGATIVE (NEGATIVE); KETONES,URINE NEGATIVE (NEGATIVE); LEUKOCYTE ESTERASE ,URINE NEGATIVE (NEGATIVE); NITRITES,URINE NEGATIVE (NEGATIVE); PROTEIN,URINE 1+ (NEGATIVE); UROBILINOGEN,URINE NORMAL (NORMAL)
[2020-08-05 10:18] LABS: APPEARANCE,URINE SLIGHTLY HAZY (CLEAR); BACTERIA,URINE TRACE /HPF (NEGATIVE); COLOR,URINE YELLOW (YELLOW); MUCUS,URINE FEW /HPF (NEGATIVE); RBC,URINE 0-2 /HPF (0-3); SQUAMOUS EPITHELIAL CELL,UR MANY /HPF (NEGATIVE)
--- NOTE | 2020-08-05 13:28 | DR.H&P ---
H&P - History & Physical for Day of: H&P Date: 08/04/20 - Chief Complaint Chief Complaint: PALPITATIONS WITH SOB, WEAKNESS - History of Present Illness History of Present Illness: PT IS 85 WF ER ADMISSION WITH CO she went into atrial fibrillation around 11:30 when she was going to bed about 1 1/2 hours ago with problems breathing and feeling like she had just ran two miles with SOB and chest discomfort. states she is a patient of Dr. Mccollum and her glass processing worker is Dr. PERERA. states she has been taking Xarelto and Tikosyn twice daily for her atrial fibrillation but she took three pills tonight. She denies tobacco, alcohol or drug usage. She deneis cold, cough, fever or chills. States she has not been around anyone with the COVID virus. states she has had one COVID vaccination already. she denies problems with her smell or taste. Patient states she has had an aortic aneurysm for about five years that is being monitored by doctors in [place]. Spouse states they decided not to do anything about it presently. - Past Medical History Past Medical History: Coronary Artery Disease, GERD, Arthritis - Past Surgical History Surgical History: Angioplasty/Stents, Cholecystectomy, Ortho Surgery, Tonsillectomy - Family History Family Medical History: Cancer, [place], Coronary Artery Disease - Social History Does patient currently use any type of tobacco product: No Have you used tobacco products in the last 12 months: No Type of Tobacco Use: None Does any household member use tobacco: No Alcohol Use: None Drug Use: None - Medications Home Medications: albuterol Allergy (Verified 06/28/19 16:46) caffeine Allergy (Verified 06/28/19 16:46) epinephrine Allergy (Verified 08/04/20 00:00) phenobarbital Allergy (Verified 06/28/19 16:46) CONTINUE taking the following medications Bystolic 5 mg PO DAILY 08/04/20 [History] Xarelto 20 mg PO DAILY 08/04/20 [History] clonazepam 0.5 mg PO HS 08/04/20 [History] dofetilide 250 mcg PO BID 08/04/20 [History] levothyroxine [Synthroid] 112 mcg PO DAILY 08/04/20 [History] pantoprazole 40 mg PO BID 08/04/20 [History] prednisone 5 mg PO DAILY 08/04/20 [History] pregabalin 50 mg PO DAILY 08/04/20 [History] New Prescriptions digoxin [Digox] 125 mcg PO DAILY PRN #30 tab 08/05/20 [Rx] - Review of Systems Constitutional: Weakness Eyes: No Symptoms Reported Respiratory: Shortness of Breath Cardiovascular: Palpitations Gastrointestinal: Nausea, Other (DYSPHAGIA) Genitourinary: No Symptoms Reported Musculoskeletal: No Symptoms Reported Skin: No Symptoms Reported Neurological: Weakness - Physical Exam Vital Signs: Temperature 98.4 F Pulse Rate [Radial] 74 Pulse Rate 104 Respiratory Rate 18 Blood Pressure [Left Arm] 106/68 Blood Pressure 106/67 O2 Sat by Pulse Oximetry 92 Oriented: Normal Eyes: Normal Ear: Normal Nose: Normal Throat: Normal Respiratory: RLL Diminished, LLL Diminished Cardiovascular: Irregular : Normal Auscultation: Bowel Sounds: Normal Palpation: Normal Tenderness: Normal Skin: Decreased Turgur (MILDLY) Musculoskeletal: Normal Psychiatric: Normal Mood Description: Calm Speech Pattern: Clear, Appropriate - Assessment/Plan (1) Atrial fibrillation with RVR Status: Acute Plan: ADMIT, EKG AND CARDIAC ENZYMES ON ADMISSION. CONTINUE ANTICOAGULANT THERAPY. TELEMETRY, ADMISSION LABS CBC CMP. CXR ON ADMISSION, NEGATIVE COVID, PRN SUPPLEMENTAL O2. RATE CONTROL, BP MONITORING (2) Rheumatoid arthritis Status: Acute (3) Essential hypertension Status: Acute (4) Thoracic aortic aneurysm Qualifiers: Presence of rupture: without rupture Qualified Code(s): I71.2 - Thoracic aortic aneurysm, without rupture Status: Acute (5) Hyperthyroidism Status: Chronic - Allergies Allergies/Adverse Reactions: Allergies Allergy/AdvReac Type Severity Reaction Status Date / Time albuterol Allergy Verified 06/28/19 16:46 caffeine Allergy Verified 06/28/19 16:46 epinephrine Allergy Verified 08/04/20 00:00 phenobarbital Allergy Verified 06/28/19 16:46
== END 2020-08-05 11:40 | disposition home or self-care (01) ==
LOC: MED/SURG 23:46 → ER 23:46 → MED/SURG 08-04 05:10
PROVIDERS: ADMIT Internal Medicine; ATTEND Internal Medicine
DX: K21.9 Gastro-esophageal reflux disease without esophagitis; Z20.822 Contact with and (suspected) exposure to COVID-19; I48.91 Unspecified atrial fibrillation; M06.9 Rheumatoid arthritis, unspecified; E11.65 Type 2 diabetes mellitus with hyperglycemia; R79.1 Abnormal coagulation profile; R06.02 Shortness of breath; I10 Essential (primary) hypertension; R94.31 Abnormal electrocardiogram [ECG] [EKG]; I71.2 Thoracic aortic aneurysm, without rupture; I25.10 Atherosclerotic heart disease of native coronary artery without angina pectoris; E05.90 Thyrotoxicosis, unspecified without thyrotoxic crisis or storm

== ENCOUNTER 2021-12-29 11:56 | Inpatient (IN) ==
--- NOTE | 2021-12-29 13:35 | DR.EXTPAIN ---
HPI Time seen Time Seen by Provider: 12/29/21 13:30 PCP Primary Care Physician: DR LINDSAY HPI Comment HPI Comment: PATIENT IS 87YR OLD MALE IN ER WITH RIGHT LOWER BACK PAIN SINCE HE FELL 01/22/2022. HISTORY LOWER BACK PAIN AND EPIDURAL INJECTION TO LOWER BACK BEFORE THE FALL THAT DAY. HAVE HAD INCREASE PAIN SINCE THAT DAY. Complaint/Symptoms Chief Complaint Doctor Comments: LOWER BACK PAIN. FELL Chief Complaint:: "S/P FALL ON 12/23/21 AFTER INJECTION WITH NEUROSURGEON IN [facility]. WORSENING PAIN TO LOWER BACK AND RIGHT" Self Treatment fo Chief Complaint: PRESCRIBED PAIN MEDICATION, HYDROCODONE Source History Provided: Patient and Significant Other Mode of arrival Mode of Arrival: Wheelchair Timing Onset of Chief Complaint: 12/23/21 Context History of: Arthritis Associated signs and symptoms Associated Signs and Symptoms: Pain PMH PMH Past Medical History: Yes Past Medical History: Asthma, GERD, Hypertension and Hyperthyroidism Past Medical History Comment: AFIB, ASCENDING AORTA -ANEURYSM Past Surgical History: Yes Surgical History: Angioplasty/Stents, Cholecystectomy and Hysterectomy Past Surgical History Comment: CARDIAC STENT , KNEE REPLACEMENT Family History History of Family Medical Conditions: No Family Medical History: Cancer, SD and Coronary Artery Disease Social History Does patient currently use any type of tobacco product: No Have you used tobacco products in the last 12 months: No Type of Tobacco Use: None Does any household member use tobacco: No Alcohol Use: None Do you use any recreational Drugs:: No Lives Where: Home Infectious screening In the last 2 months have you had wt loss of >10#?: NO Have you had fever, night sweats or hemotysis?: No Have you traveled outside the country in the last 6 months?: No Isolation: Standard ROS Review of Systems Constitutional: No Symptoms Reported and See HPI; negative Fever, Weakness or Fatigue Eyes: No Symptoms Reported and See HPI ENTM: No Symptoms Reported and See HPI; negative Nose Discharge or Nose Congestion Respiratoy: No Symptoms Reported and See HPI; negative Moist Cough, Short of Breath or Wheezing Cardiovascular: No Symptoms Reported and See HPI Gastrointestinal/Abdominal: No Symptoms Reported and See HPI; negative Abdominal Pain, Nausea or Vomiting Genitourinary: No Symptoms Reported and See HPI; negative Dysuria Neurological: No Symptoms Reported and See HPI Musculoskeletal: See HPI and Back Pain (LOWER BACK PAIN.) Integumentary: No Symptoms Reported and See HPI; negative Rash Hematologic/Lymphatic: No Symptoms Reported and See HPI Endocrine: No Symptoms Reported and See HPI; negative Increased Thirst or Increased Urine Psychiatric: No Symptoms Reported and See HPI All Other Systems: Reviewed and Negative PE Vital Signs Vitals: Temperature 97.8 F Pulse Rate [Left Brachial] 52 Pulse Rate 62 Respiratory Rate 18 Blood Pressure [Left Arm] 115/60 Blood Pressure [Left Arm] 155/82 Blood Pressure 97/56 O2 Sat by Pulse Oximetry 95 General Limitations: No Limitations General Appearance: Alert and In No Apparent Distress Head Head Exam: Normal Inspection Eyes Eye exam: Normal Appearance ENT ENT Exam: Normal Exam, Normal Oropharynx, Normal External Ear Exam and TM's Normal Bilaterally Neck Neck Exam: Normal Inspection and Trachea Midline; negative Tenderness Chest Chest Inspection: Normal Inspection and Symmetric Chest Wall Rise; negative T enderness Respiratory Respiratory Exam: Normal Lung Sounds Bilat; negative Accessory Muscle Use, Chest Wall Tenderness or Respiratory Distress Cardiovascular Cardiovascular Exam: Regular Rate, Normal Rhythm and Normal Heart Sounds; negative Systolic Murmur or Diastolic Murmur Abdominal Exam Abdominal Exam: Normal Inspection, Normal Bowel Sounds and Soft; negative Tenderness Extremities Extremities Exam: Normal Inspection and Normal Capillary Refill Back Back Exam: Tenderness (LOWER BACK.), Paraspinal Tenderness (LOWER BACK) and Vertebral Tenderness (LOWER BACK.) Neurological Neurological Exam: Alert, Oriented X3 and CN II-XII Intact Psychiatric Psychiatric Exam: Normal Affect and Normal Mood Skin Skin Exam: Warm, Dry, Intact and Normal Color MDM Differential Diagnosis Differential Diagnosis: Contusion (LOWER BACK), Fracture (LOWER BACK) and Sprain (LOWER BACK.) COURSE Treatment Treatment: SEE ORDERS DONE WHILE PATIENT WAS IN ER. Consultation Consultation Comments: DISCUSSED PATIENT WITH DR. LINDSAY. HE WILL ADMIT PATIENT. Education/Counseling Education/Counseling: Patient and Family Educated On: Treatment, Diagnosis and Needs for Follow Up ROR Labs Reviewed Laboratory Results Reviewed?: Yes Result Diagrams: 01/05/22 04:20 01/05/22 04:20 Laboratory: 12/30/21 07:40 Urine,Clean Catch Urine Culture - Final Escherichia Coli WBC 3.6 X10^3/uL (3.6-10.0) 12/31/21 03:27 RBC 4.19 X10^6/uL (3.5-5.4) 12/31/21 03:27 Hgb 12.6 g/dL (12.0-16.0) 12/31/21 03:27 Hct 37.7 % (36.0-47.0) 12/31/21 03:27 MCV 90.0 fL (80.0-100.0) 12/31/21 03:27 MCH 30.1 pg (27.0-34.0) 12/31/21 03: MCHC 33.5 g/dL (33.0-35.0) 12/31/21 03: RDW 15.9 % (11.6-16.5) 12/31/21 03:27 Plt Count 139 X10^3/uL (150.0-450.0) L 12/31/21 03: MPV 8.4 fL (7.4-11.0) 12/31/21 03: Neut % (Auto) 55.9 % (42.0-75.0) 12/31/21 03: Lymph % (Auto) 32.2 % (21.0-51.0) 12/31/21 03:27 [place] % (Auto) 10.6 % (0.0-13.0) 12/31/21 03: Eos % (Auto) 0.7 % (0.9-2.9) L 12/31/21 03: Baso % (Auto) 0.6 % (0.2-1.0) 12/31/21 03: Neut # (Auto) 2.0 x10^3/uL (2.2-4.8) L 12/31/21 03:27 Lymph # (Auto) 1.1 X10^3/uL (1.3-2.9) L 12/31/21 03:27 [place] # (Auto) 0.4 x10^3/uL (0.3-0.8) 12/31/21 03:27 Eos # (Auto) 0.0 x10^3/uL (0.0-0.2) 12/31/21 03: Baso # (Auto) 0.0 X10^3/uL (0.0-0.1) 12/31/21 03: Absolute Nucleated RBC 0.1 /100WBC 12/31/21 03: Sodium 137 mmol/L (136-145) 12/31/21 03:27 Corrected Sodium 137 mmol/L (136-145) 12/31/21 03:27 Potassium 4.4 mmol/L (3.5-5.1) 12/31/21 03:27 Chloride 104 mmol/L (98-107) 12/31/21 03:27 Carbon Dioxide 28.3 mmol/L (21-32) 12/31/21 03:27 BUN 17 mg/dL (7-18) 12/31/21 03:27 Creatinine 1.13 mg/dL (0.55-1.02) H 12/31/21 03:27 Est GFR (MDRD) Af Amer 59 (>60) 12/31/21 03:27 Est GFR (MDRD) Non-Af 48 (>60) L 12/31/21 03:27 Glucose 117 mg/dL (65-99) H 12/31/21 03:27 Calcium 8.8 mg/dL (8.5-10.1) 12/31/21 03:27 Corrected Calcium 9.6 mg/dL (8.5-10.1) 12/31/21 03:27 Magnesium 2.2 mg/dL (1.7-2.9) 12/30/21 03:23 Total Bilirubin 0.40 mg/dL (0.2-1.0) 12/31/21 03:27 AST 20 Units/L (15-37) 12/31/21 03:27 ALT 26 Units/L (12-78) 12/31/21 03:27 Alkaline Phosphatase 117 Units/L (46-116) H 12/31/21 03:27 Total Protein 5.9 g/dL (6.4-8.2) L 12/31/21 03:27 Albumin 3.0 g/dL (3.4-5.0) L 12/31/21 03:27 Globulin 2.9 g/dL (2.5-4.5) 12/31/21 03:27 Albumin/Globulin Ratio 1.0 Ratio (1.1-2.1) L 12/31/21 03:27 Specimen Type Clean catch urine 12/30/21 07:40 Urine Color Yellow (YELLOW) 12/30/21 07:40 Urine Appearance Slightly hazy (CLEAR) 12/30/21 07:40 Urine pH 5.0 (5.0 - 8.0) 12/30/21 07:40 Ur Specific [place] 1.025 (1.000-1.030) 12/30/21 07:40 Urine Protein 1+ (NEGATIVE) 12/30/21 07:40 Urine Glucose (UA) Negative (NEGATIVE) 12/30/21 07:40 Urine Ketones Negative (NEGATIVE) 12/30/21 07:40 Urine Blood 2+ (NEGATIVE) 12/30/21 07:40 Urine Nitrite Positive (NEGATIVE) 12/30/21 07:40 Urine Bilirubin Negative (NEGATIVE) 12/30/21 07:40 Urine Urobilinogen Normal (NORMAL) 12/30/21 07:40 Ur Leukocyte Esterase 1+ (NEGATIVE) 12/30/21 07:40 Urine RBC 5-10 /HPF (0-3) A 12/30/21 07:40 Urine WBC 3-5 /HPF (0-5) 12/30/21 07:40 Ur Squamous Epith Cells Rare /HPF (NEGATIVE) 12/30/21 07:40 Ur Transition Epith Cell Few /HPF (NEGATIVE) 12/30/21 07:40 Amorphous Sediment 1+ /HPF (NEGATIVE) 12/30/21 07:40 Urine Bacteria Trace /HPF (NEGATIVE) 12/30/21 07:40 Hyaline Casts Few /LPF (NEGATIVE) 12/30/21 07:40 Ur Culture Indicated? Yes/culture set up 12/30/21 07:40 SARS-CoV-2 (PCR) Negative (NEGATIVE) 12/29/21 17:45 XRAY XRAY Interpreted by: Radiologist (REPORT NOTED.) and Self Opioid Opioid Risk Tool Age ([place] box if 16-45): No History of Preadolescent Sexual Abuse: No Total: 0 Total Score Risk Category: Low Risk Copyright: Anthony BILLINGSLEY predicting aberrant behaviors Diagnosis Discharge Problem: Lower back pain, Closed pelvic fracture, Closed compression fracture of lumbar vertebra
[2021-12-29] MEDS ORDERED: MORPHINE SULFATE INJ 4 MG IM ONE (14:08)
[2021-12-29] MEDS ORDERED: ZOFRAN INJ 4 MG VIAL IVP ONE (14:10)
[2021-12-29] MEDS ORDERED: DEMEROL INJ IM ONE (14:39)
--- NOTE | 2021-12-29 14:41 | CT ---
HISTORYFall, hip painSTUDYCT bony pelvis without contrastTechnique: Axial noncontrast images with coronal and sagittal reformats. Dose reduction procedures were used with mA/kv adjusted for body size.COMPARISONNoneFINDINGSThe bones are osteopenic. Bilateral facet arthropathy is present at L 4 5 and L5-S1. The SI joints are intact as are the sacrum and and coccyx. The right pelvic bones are intact. There is cortical irregularity involving the lateral aspect of the middle 3rd of the inferior pubic ramus. Nondisplaced fracture not excluded. Osteitis pubis is present. The hip joints are bilaterally intact. No joint erosions are identified. Mild degenerative joint space narrowing is present in the hip joints bilaterally. The proximal femurs appear bilaterally intact. No intrapelvic soft tissue abnormality is identified to the limitations of an unenhanced examination. No periarticular soft tissue abnormalities identified in either hip. No hip joint effusions identified.IMPRESSIONCortical irregularity along the lateral aspect of the middle 3rd of the inferior pubic ramus. A nondisplaced fracture is not entirely excludedNo evidence for hip fractureDegenerative joint space narrowing in the hip joints bilaterallyOsteopeniaElectronically signed by: DENI MORGAN (Dec 29, 2021 14:40:04)
[2021-12-29] MEDS ORDERED: DEMEROL INJ ONE (14:42)
[2021-12-29] MEDS ORDERED: ZOFRAN INJ 4 MG VIAL ONE (14:43)
--- NOTE | 2021-12-29 14:49 | CT ---
HISTORYFall, low back painSTUDYCT lumbar spine without contrastTechnique: Axial noncontrast images with coronal and sagittal reformats. Dose reduction procedures were used with mA/kv adjusted for body size.[id number]/2022FINDINGSThe bones are osteopenic. The alignment is normal. There is a compression fracture of the superior endplate of T12 unchanged from the prior examination. There is a compression fracture of L1 previously treated with kyphoplasty and unchanged when compared with the prior examination. There is a compression fracture of the superior endplate of L2 progressive when compared with the prior examination 09/22/2021 and acute exacerbation not excluded. The pedicles, spinous processes, and posterior elements are intact. The SI joints and visualized portion of the sacrum are intact. The disc levels are evaluated as follows:T12-L1 level no evidence for compressive disc disease. The neural foramina are patent. The joints are normal. There is a previously treated compression fracture of L1 with slight posterior displacement of the posterior superior aspect of the vertebral body contributing to mild canal stenosis unchanged from the prior examination.L1-2 level: There is disc degeneration with vacuum phenomenon present. Broad-based disc bulging effaces the thecal sac and contributes along with facet arthropathy to mild lateral recess narrowing bilaterally.L2-3 level: There is disc degeneration with loss of disc height and vacuum phenomenon present. Mild disc bulging effaces the thecal sac and contributes to lateral recess narrowing on the right and contributes along with spondylitic change and facet arthropathy to lateral recess and foraminal narrowing on the left.L3-4 level: There is disc degeneration with vacuum phenomenon present. Mild disc bulging effaces the thecal sac and contributes along with facet arthropathy to mild lateral recess narrowing bilaterally.L4-5 level: There is disc degeneration with vacuum phenomenon present. Broad-based disc bulging effaces the thecal sac and contributes along with ligamentous hypertrophy and bilateral facet arthropathy to spinal canal stenosis with lateral recess and foraminal narrowing bilaterally right worse than left and more prominent at the levels noted aboveL5-S1 level: Broad-based disc bulging abuts but does not displace the S1 nerve roots. It contributes along with bilateral facet arthropathy to lateral recess narrowing bilaterally.IMPRESSIONProgression of a previously described compression fracture of the superior endplate of L2 when compared to the prior examination. This could be acute or subacuteCompression fracture of L1 unchanged and previously treated with kyphoplastyEvaluation of each disc level given in detail aboveElectronically signed by: DENI MORGAN (Dec 29, 2021 14:48:46)
[2021-12-29] MEDS ORDERED: ULTRAM PO PRN (21:21)
[2021-12-29] MEDS: NORCO 5/325 MG TAB PO PRN (21:48)
[2021-12-30 04:32] LABS: BASOPHILS % (AUTO) 0.3 % (0.2-1.0); EOSINOPHILS # (AUTO) 0.1 x10^3/uL (0.0-0.2); EOSINOPHILS % (AUTO) 1.2 % (0.9-2.9); HEMATOCRIT 38.3 % (36.0-47.0); LYMPHOCYTES % (AUTO) 42.8 % (21.0-51.0); MEAN CORPUSCULAR HEMOGLOBIN 30.4 pg (27.0-34.0); MEAN CORPUSCULAR HGB CONC 33.9 g/dL (33.0-35.0); MEAN CORPUSCULAR VOLUME 89.7 fL (80.0-100.0); MEAN PLATELET VOLUME 8.3 fL (7.4-11.0); MONOCYTES # (AUTO) 0.5 x10^3/uL (0.3-0.8); MONOCYTES % (AUTO) 9.9 % (0.0-13.0); NEUTROPHILS # (AUTO) 2.1 x10^3/uL (2.2-4.8); NEUTROPHILS % (AUTO) 45.8 % (42.0-75.0); RED BLOOD COUNT 4.27 X10^6/uL (3.5-5.4); RED CELL DISTRIBUTION WIDTH 16.2 % (11.6-16.5); WHITE BLOOD COUNT 4.7 X10^3/uL (3.6-10.0)
[2021-12-30 04:48] LABS: ALANINE AMINOTRANSFERASE 27 Units/L (12-78); ALKALINE PHOSPHATASE 112 Units/L (46-116); ASPARTATE AMINO TRANSFERASE 17 Units/L (15-37); BLOOD UREA NITROGEN 15 mg/dL (7-18); CALCIUM 9.1 mg/dL (8.5-10.1); CARBON DIOXIDE 30.2 mmol/L (21-32); CHLORIDE 103 mmol/L (98-107); COR CA(FOR HYPOALB) 9.9 mg/dL (8.5-10.1); CREATININE 1.11 mg/dL (0.55-1.02); SODIUM 138 mmol/L (136-145); TOTAL PROTEIN 5.9 g/dL (6.4-8.2); eGFR NON BLACK RACES 49 (>60)
[2021-12-30] MEDS ORDERED: K-RIDER 10 MEQ/NS 100 ML 10 MEQ/100 ML BAG IV PRN (05:54)
[2021-12-30] MEDS ORDERED: POTASSIUM CHLORIDE LIQ 20 MEQ UDC PO PRN (05:54)
[2021-12-30] MEDS ORDERED: MICRO K EXTEN CAP 10 MEQ PO PRN (05:54)
[2021-12-30] MEDS ORDERED: POTASSIUM CHL 40 MEQ/NS 0.45% 500 ML IV PRN (05:54)
[2021-12-30] MEDS ORDERED: KLOR-CON PO PRN (05:54)
[2021-12-30] MEDS ORDERED: POTASSIUM CHL 60 MEQ/NS 0.45% 500 ML IV PRN (05:54)
[2021-12-30] MEDS: K-DUR TAB 20 MEQ PO PRN (06:22)
[2021-12-30 08:12] LABS: BILIRUBIN,URINE NEGATIVE (NEGATIVE); BLOOD/HEMOGLOBIN,URINE 2+ (NEGATIVE); GLUCOSE, URINE NEGATIVE (NEGATIVE); KETONES,URINE NEGATIVE (NEGATIVE); LEUKOCYTE ESTERASE ,URINE 1+ (NEGATIVE); NITRITES,URINE POSITIVE (NEGATIVE); PROTEIN,URINE 1+ (NEGATIVE); UROBILINOGEN,URINE NORMAL (NORMAL)
[2021-12-30 08:16] LABS: COLOR,URINE YELLOW (YELLOW)
[2021-12-30 08:17] LABS: APPEARANCE,URINE SLIGHTLY HAZY (CLEAR)
[2021-12-30 08:21] LABS: BACTERIA,URINE TRACE /HPF (NEGATIVE); SQUAMOUS EPITHELIAL CELL,UR RARE /HPF (NEGATIVE); TRANSITIONAL EPI CELLS,URINE FEW /HPF (NEGATIVE)
[2021-12-30 08:22] LABS: HYALINE CASTS, URINE FEW /LPF (NEGATIVE)
[2021-12-30] MEDS: NORCO 5/325 MG TAB PO PRN (08:48)
[2021-12-30] MEDS ORDERED: MILK OF MAGNESIA PO PRN (09:09)
[2021-12-30] MEDS: TORADOL 30 MG VIAL IVP SCH ×2 (10:22→17:23)
[2021-12-30] MEDS: XARELTO PO SCH (10:23)
--- NOTE | 2021-12-30 14:42 | DR.H&P ---
H&P - History & Physical for Day of: H&P Date: 12/29/21 - Chief Complaint Chief Complaint: LOW BACK PAIN, RIGHT PELVIC PAIN - History of Present Illness History of Present Illness: IS A 86 YEAR OLD PATIENT OF OURS. SHE PRESENTED WITH COMPLAINTS OF SEVERE LOW BACK PAIN AND PAIN TO RIGHT HIP/PELVIS AREA FOLLOWING A FALL ON 12/23/21. PATIENT REPORTS THAT SHE HAS BEEN UNABLE TO STAND OR AMBULATE WITHOUT SEVERE PAIN. PATIENT REPORTS THAT EVEN CHANGING POSITIONS IN THE BED CAUSE HER SEVERE PAIN. HER PAIN LEVEL ON ARRIVAL TO THE ER WAS A 7/10. HER PMH INCLUDES: ASTHMA, GERD, HTN, HYPERTHYROIDISM, A-FIB, AAA, CARDIAC STENTS, CHOLECYSTECTOMY, HYSTERECTOMY, AND KNEE REPLACEMENT. ON ARRIVAL TO THE ER, VITALS WERE 98.2-62-20-92%-97/56. LABS WERE OBTAINED. LABS WERE OBTAINED. WBC 4.7, RBC 4.27, HGB 13.0, HCT 38.3, SODIUM 137, POTASSIUM 3.3, CHLORIDE 96, BUN 31, CREATININE 2.01, GLUCOSE 301, CALCIUM 5.8, AST 11, ALT 29, ALK PHOS 122, TOTAL PROTEIN 6.2, ALBUMIN 2.7. CARDIAC ENZYMES WERE WITHIN NORMAL LIMITS. A URINALYSIS WAS OBTAINED AND REVEALED: WBC 3-5, RBC 5-10, BACTERIA TRACE, BLOOD 2+, NITRITES POSITIVE. A URINE CULTURE WAS SET UP. COVID-[address] WITHOUT CONTRAST WAS OBTAINED AND REVEALED: Progression of a previously described compression fracture of the superior endplate of L2 when compared to the prior examination. This could be acute or subacute. Compression fracture of L1 unchanged and previously treated with kyphoplasty. A PELVIS CT WITHOUT CONTRAST WAS OBTAINED AND REVEALED: Cortical irregularity along the lateral aspect of the middle 3rd of the inferior pubic ramus. A nondisplaced fracture is not entirely excluded. No evidence for hip fracture. Degenerative joint space narrowing in the hip joints bilaterally. Osteopenia. IN THE ER, SHE WAS GIVEN DEMEROL 12.5MG IM X 1, ZOFRAN 4MG IV X 1. SHE WAS ADMITTED FOR FURTHER EVALUATION AND TREATMENT OF INTRACTABLE PAIN DUE TO PELVIC FRACTURE AND THORACIC COMPRESSION FRACTURE. SHE WAS STARTED ON TORADOL 30MG IV Q8H, HYDROCODONE/ACET 10/325MG PO Q4H PRN, COLACE 100MG PO HS, MILK OF MAGNESIA 15ML PO QID PRN, XARELTO 20MG PO DAILY, ULTRAM 50MG PO Q4H PRN, AND THE POTASSIUM PROTOCOL. WE WILL HAVE PT WORK WITH PATIENT. OTHERWISE, WE PLAN TO FOLLOW-UP WITH AM LABS AND CONTINUE TO MONITOR. TIME SPENT ON CLINICAL ASSESSMENT, REVIEWING LABS AND IMAGING, DECISION MAKING, AND DOCUMENTATION GREATER THAN 75 MINUTES. - Past Medical History Past Medical History: Hypertension, Hyperthyroidism, Asthma, GERD - Past Surgical History Surgical History: Angioplasty/Stents, Cholecystectomy, Hysterectomy - Family History Family Medical History: Cancer, SD, Coronary Artery Disease - Social History Does patient currently use any type of tobacco product: No Have you used tobacco products in the last 12 months: No Type of Tobacco Use: None Does any household member use tobacco: No Alcohol Use: None Drug Use: None - Medications Home Medications: albuterol Allergy (Verified 02/27/21 10:00) caffeine Allergy (Verified 02/27/21 10:00) epinephrine Allergy (Verified 02/27/21 10:00) phenobarbital Allergy (Verified 02/27/21 10:00) CONTINUE taking the following medications amiodarone 200 mg PO DAILY 12/30/21 [History] cephalexin 250 mg PO HS 12/30/21 [History] montelukast 10 mg PO QHS 12/30/21 [History] nebivolol 5 mg PO DAILY 12/30/21 [History] pregabalin 75 mg PO QHS 12/30/21 [History] sennosides [senna] 8.6 mg PO BID 12/30/21 [History] tamsulosin 0.4 mg PO QHS 12/30/21 [History] - Review of Systems Constitutional: No Symptoms Reported Eyes: No Symptoms Reported ENT: No Symptoms Reported Respiratory: No Symptoms Reported Cardiovascular: No Symptoms Reported Gastrointestinal: No Symptoms Reported Genitourinary: No Symptoms Reported Musculoskeletal: See HPI, Back Pain, Other Skin: No Symptoms Reported Neurological: Weakness - Physical Exam Vital Signs: Temperature 97.9 F Pulse Rate [Left Brachial] 48 Pulse Rate 62 Respiratory Rate 20 Blood Pressure [Left Arm] 125/62 Blood Pressure [Left Arm] 155/82 Blood Pressure 97/56 O2 Sat by Pulse Oximetry 95 Oriented: Normal Eyes: Normal Ear: Normal Nose: Normal Respiratory: Clear Throughout Cardiovascular: Normal : Normal Auscultation: Bowel Sounds: Normal Palpation: Normal Tenderness: Normal Skin: Normal Musculoskeletal: Back:Thoracic, Back:Lumbar, Tender Psychiatric: Normal Mood Description: Calm Affect: Normal Speech Pattern: Clear - Assessment/Plan (1) Intractable pain Status: Acute Plan: ADMIT, PT, ROCEPHIN 1G IV DAILY, TORADOL 30MG IV Q8H, HYDROCODONE/ACET 10/325MG PO Q4H PRN, COLACE 100MG PO HS, MILK OF MAGNESIA 15ML PO QID PRN, XARELTO 20MG PO DAILY, ULTRAM 50MG PO Q4H PRN, AND THE POTASSIUM PROTOCOL. (2) Pelvic fracture Qualifiers: Encounter type: initial encounter Pelvic bone location: other part of pelvis Fracture type: closed Qualified Code(s): S32.89XA - Fracture of other parts of pelvis, initial encounter for closed fracture Status: Acute (3) Compression fracture of lumbar vertebra Qualifiers: Encounter type: initial encounter Lumbar vertebra fracture level: L2 Qualified Code(s): S32.020A - Wedge compression fracture of second lumbar vertebra, initial encounter for closed fracture Status: Acute (4) UTI (urinary tract infection) Qualifiers: Urinary tract infection type: acute cystitis Hematuria presence: with hematuria Qualified Code(s): N30.01 - Acute cystitis with hematuria Status: Acute - Allergies Allergies/Adverse Reactions: Allergies Allergy/AdvReac Type Severity Reaction Status Date / Time albuterol Allergy Verified 02/27/21 10:00 caffeine Allergy Verified 02/27/21 10:00 epinephrine Allergy Verified 02/27/21 10:00 phenobarbital Allergy Verified 02/27/21 10:00
[2021-12-30] MEDS ORDERED: NS 100 ML IV 0 ML ONE (14:50)
[2021-12-30] MEDS ORDERED: NS 250 ML IV 250 ML IV ONE (14:57)
[2021-12-30] MEDS ORDERED: ROCEPHIN VIAL 1 GRAM 1 G in NS 100 ML IV + SPIKE MINIBAG* 100 ML IV SCH (15:00)
[2021-12-30] MEDS: ROCEPHIN VIAL 1 GRAM 1 G in NS 100 ML IV 100 ML IV SCH (15:01)
[2021-12-30] MEDS ORDERED: XARELTO PO SCH (16:00)
[2021-12-30] MEDS: PREDNISONE TAB 5 MG PO SCH (16:20)
[2021-12-30] MEDS: PROTONIX TAB 40 MG PO SCH ×2 (16:20→20:27)
[2021-12-30] MEDS: SYNTHROID 112 mcg TAB PO SCH (16:50)
[2021-12-30] MEDS: COLACE CAP 100 MG PO SCH (20:25)
[2021-12-30] MEDS: LYRICA CAP 75 mg PO SCH (20:26)
[2021-12-30] MEDS: FLOMAX PO SCH (20:26)
[2021-12-30] MEDS: SINGULAIR TAB 10 MG PO SCH (20:27)
[2021-12-30] MEDS: SENOKOT PO SCH (20:27)
[2021-12-30] MEDS: NORCO 10/325 TAB PO PRN (20:28)
[2021-12-31] MEDS: TORADOL 30 MG VIAL IVP SCH ×3 (02:30→18:47)
[2021-12-31 04:26] LABS: HEMOGLOBIN 12.6 g/dL (12.0-16.0); MONOCYTES # (AUTO) 0.4 x10^3/uL (0.3-0.8); WHITE BLOOD COUNT 3.6 X10^3/uL (3.6-10.0)
[2021-12-31 04:31] LABS: BASOPHILS % (AUTO) 0.6 % (0.2-1.0); EOSINOPHILS % (AUTO) 0.7 % (0.9-2.9); HEMATOCRIT 37.7 % (36.0-47.0); LYMPHOCYTES # (AUTO) 1.1 X10^3/uL (1.3-2.9); LYMPHOCYTES % (AUTO) 32.2 % (21.0-51.0); MEAN CORPUSCULAR HEMOGLOBIN 30.1 pg (27.0-34.0); MEAN CORPUSCULAR HGB CONC 33.5 g/dL (33.0-35.0); MEAN PLATELET VOLUME 8.4 fL (7.4-11.0); MONOCYTES % (AUTO) 10.6 % (0.0-13.0); NEUTROPHILS % (AUTO) 55.9 % (42.0-75.0); RED BLOOD COUNT 4.19 X10^6/uL (3.5-5.4); RED CELL DISTRIBUTION WIDTH 15.9 % (11.6-16.5)
[2021-12-31 05:06] LABS: CALCIUM 8.8 mg/dL (8.5-10.1); CARBON DIOXIDE 28.3 mmol/L (21-32); COR CA(FOR HYPOALB) 9.6 mg/dL (8.5-10.1); CREATININE 1.13 mg/dL (0.55-1.02); TOTAL PROTEIN 5.9 g/dL (6.4-8.2)
[2021-12-31] MEDS: NORCO 10/325 TAB PO PRN ×3 (07:11→20:04)
[2021-12-31] MEDS: PREDNISONE TAB 5 MG PO SCH (08:36)
[2021-12-31] MEDS: XARELTO PO SCH (08:36)
[2021-12-31] MEDS: PROTONIX TAB 40 MG PO SCH ×2 (08:36→20:05)
[2021-12-31] MEDS: SYNTHROID 112 mcg TAB PO SCH (08:37)
[2021-12-31] MEDS: ROCEPHIN VIAL 1 GRAM 1 G in NS 100 ML IV 100 ML IV SCH (08:37)
[2021-12-31] MEDS: SENOKOT PO SCH ×2 (08:37→20:06)
[2021-12-31] MEDS: CORDARONE TAB 200 MG PO SCH (10:32)
[2021-12-31] MEDS ORDERED: NEOSPORIN OINT ONE (11:30)
[2021-12-31] MEDS: FLOMAX PO SCH (20:04)
[2021-12-31] MEDS: COLACE CAP 100 MG PO SCH (20:04)
[2021-12-31] MEDS: SINGULAIR TAB 10 MG PO SCH (20:05)
[2021-12-31] MEDS: LYRICA CAP 75 mg PO SCH (20:05)
[2022-01-01] MEDS: TORADOL 30 MG VIAL IVP SCH ×3 (01:18→17:11)
[2022-01-01 04:27] LABS: EOSINOPHILS # (AUTO) 0.1 x10^3/uL (0.0-0.2); EOSINOPHILS % (AUTO) 1.7 % (0.9-2.9); HEMATOCRIT 35.7 % (36.0-47.0); LYMPHOCYTES # (AUTO) 1.3 X10^3/uL (1.3-2.9); LYMPHOCYTES % (AUTO) 39.4 % (21.0-51.0); MEAN CORPUSCULAR HEMOGLOBIN 30.5 pg (27.0-34.0); MEAN CORPUSCULAR HGB CONC 33.7 g/dL (33.0-35.0); MEAN CORPUSCULAR VOLUME 90.5 fL (80.0-100.0); MEAN PLATELET VOLUME 8.2 fL (7.4-11.0); MONOCYTES # (AUTO) 0.4 x10^3/uL (0.3-0.8); MONOCYTES % (AUTO) 11.1 % (0.0-13.0); NEUTROPHILS # (AUTO) 1.5 x10^3/uL (2.2-4.8); NEUTROPHILS % (AUTO) 46.8 % (42.0-75.0); RED BLOOD COUNT 3.94 X10^6/uL (3.5-5.4); WHITE BLOOD COUNT 3.2 X10^3/uL (3.6-10.0)
[2022-01-01 04:37] LABS: ALBUMIN 2.9 g/dL (3.4-5.0); CALCIUM 8.9 mg/dL (8.5-10.1); CARBON DIOXIDE 28.4 mmol/L (21-32); COR CA(FOR HYPOALB) 9.8 mg/dL (8.5-10.1); CREATININE 1.12 mg/dL (0.55-1.02); TOTAL PROTEIN 5.7 g/dL (6.4-8.2)
[2022-01-01] MEDS: K-DUR TAB 20 MEQ PO PRN (05:28)
[2022-01-01] MEDS: KLONOPIN TAB 0.5 MG PO PRN (05:29)
[2022-01-01] MEDS: ROCEPHIN VIAL 1 GRAM 1 G in NS 100 ML IV 100 ML IV SCH (08:11)
[2022-01-01] MEDS: XARELTO PO SCH (08:13)
[2022-01-01] MEDS: CORDARONE TAB 200 MG PO SCH (08:13)
[2022-01-01] MEDS: SYNTHROID 112 mcg TAB PO SCH (08:13)
[2022-01-01] MEDS: PREDNISONE TAB 5 MG PO SCH (08:13)
[2022-01-01] MEDS: SENOKOT PO SCH ×2 (08:14→20:24)
[2022-01-01] MEDS: PROTONIX TAB 40 MG PO SCH ×2 (08:14→20:24)
--- NOTE | 2022-01-01 08:30 | PCM.PROG ---
Progress Note - Progress Note for Day of Date of Exam: 12/31/21 - Subjective Subjective: IS CURRENTLY INPATIENT STATUS FOR TREATMENT OF INTRACTABLE PAIN DUE TO PELVIC FRACTURE AND COMPRESSION FRACUTURE OF L2 AND URINARY TRACT INFECTION. TODAY, SHE IS ALERT AND ORIENTED, LYING IN BED ON MORNING ROUNDS. SHE CONTINUES WITH COMPLAINTS OF MODERATE PAIN WITH MOVEMENT AND ACTIVITY. SHE ALSO REPORTS WEAKNESS. SHE DOES REPORT SLIGHT IMPROVEMENT SINCE ADMISSION. ON EXAMINATION, SHE IS BRADYCARDIC WITH HR RUNNING IN THE 50s. REGULAR RHYTHM. BILATERAL LUNGS ARE CLEAR TO AUSCULTATION. ABDOMEN IS ROUND, SOFT, AND NON- TENDER WITH NORMAL BOWEL SOUNDS NOTED IN ALL QUADRANTS. TENDERNESS NOTED TO LUMBAR SPINE. NO UPPER OR LOWER EXTREMITY EDEMA NOTED. HER VITALS THIS MORNING ARE: 97.8-52-18-95%-115/60. LABS WERE OBTAINED. WBC 3.6, RBC 4.19, HGB 12.6, HCT 37.7, PLT COUNT 139, SODIUM 137, POTASSIUM 4.4, BUN 17, CREATININE 1.13, GLUCOSE 117, CALCIUM 8.8, AST 20, ALT 26, ALK PHOS 117, TOTAL PROTEIN 5.9, ALBUMIN 3.0. URINE CULTURE IS PENDING. PRELIMINARY REPORTS GROWTH OF GRAM NEGATIVE RODS. SHE IS CURRENTLY RECEIVING ROCEPHIN 1G IV DAILY, TORADOL 30MG IV Q8H, HYDROCODONE/ACET 10/325MG PO Q4H PRN, COLACE 100MG PO HS, MILK OF MAGNESIA 15ML PO QID PRN, XARELTO 20MG PO DAILY, ULTRAM 50MG PO Q4H PRN, AND THE POTASSIUM PROTOCOL. HER HOME MEDICATIONS WERE RESUMED. WE WILL CONTINUE WITH CURRENT PLAN OF CARE TODAY. PHYSICAL THERAPY HAS BEEN WORKING WITH [facility]. SHE HAS BEEN COOPERATIVE WITH THERAPY. OTHERWISE, WE WILL FOLLOW-UP WITH AM LABS AND CONTINUE TO MONITOR. TIME SPENT ON CLINICAL ASSESSMENT, REVIEWING LABS AND IMAGING, DECISION MAKING, AND DOCUMENTATION GREATER THAN 45 MINUTES. - Past Medical Family Social History Past Med/Fam/Surg Hx: No changes since H&P Allergies: Allergies albuterol Allergy (Verified 02/27/21 10:00) caffeine Allergy (Verified 02/27/21 10:00) epinephrine Allergy (Verified 02/27/21 10:00) phenobarbital Allergy (Verified 02/27/21 10:00) - Review of Systems ROS: No change since H&P - Vital Signs and I&O's Vital Signs: Temperature 98.0 F Pulse Rate [Left Brachial] 52 Pulse Rate 62 Respiratory Rate 18 Blood Pressure [Left Arm] 149/69 Blood Pressure [Left Arm] 117/54 Blood Pressure 97/56 O2 Sat by Pulse Oximetry 98 Intake and Output: Intake & Output 12/29/21 12/30/21 12/31/21 01/01/22 11:59 11:59 11:59 11:59 Intake Total 1180 / 1180 1080 / 1080 Balance 1180 / 1180 1080 / 1080 - Physical Exam Oriented: Normal Eyes: Normal Ear: Normal Nose: Normal Respiratory: Normal Cardiovascular: Bradycardia : Normal Auscultation: Bowel Sounds: Normal Palpation: Normal Tenderness: Normal Skin: Normal Musculoskeletal: Back:Thoracic, Back:Lumbar, Pelvis, Tender Psychiatric: Normal Mood Description: Calm Affect: Normal Speech Pattern: Clear, Appropriate - Laboratory and Diagnostics Result Diagrams: 01/01/22 03:30 01/01/22 07:33 Labs: 12/30/21 07:40 Urine,Clean Catch Urine Culture - Preliminary Laboratory WBC 3.2 X10^3/uL (3.6-10.0) L 01/01/22 03:30 RBC 3.94 X10^6/uL (3.5-5.4) 01/01/22 03:30 Hgb 12.0 g/dL (12.0-16.0) 01/01/22 03:30 Hct 35.7 % (36.0-47.0) L 01/01/22 03:30 MCV 90.5 fL (80.0-100.0) 01/01/22 03:30 MCH 30.5 pg (27.0-34.0) 01/01/22 03:30 MCHC 33.7 g/dL (33.0-35.0) 01/01/22 03:30 RDW 16.0 % (11.6-16.5) 01/01/22 03:30 Plt Count 126 X10^3/uL (150.0-450.0) L 01/01/22 03:30 MPV 8.2 fL (7.4-11.0) 01/01/22 03:30 Neut % (Auto) 46.8 % (42.0-75.0) 01/01/22 03:30 Lymph % (Auto) 39.4 % (21.0-51.0) 01/01/22 03:30 [place] % (Auto) 11.1 % (0.0-13.0) 01/01/22 03:30 Eos % (Auto) 1.7 % (0.9-2.9) 01/01/22 03:30 Baso % (Auto) 1.0 % (0.2-1.0) 01/01/22 03:30 Neut # (Auto) 1.5 x10^3/uL (2.2-4.8) L 01/01/22 03:30 Lymph # (Auto) 1.3 X10^3/uL (1.3-2.9) 01/01/22 03:30 [place] # (Auto) 0.4 x10^3/uL (0.3-0.8) 01/01/22 03:30 Eos # (Auto) 0.1 x10^3/uL (0.0-0.2) 01/01/22 03:30 Baso # (Auto) 0.0 X10^3/uL (0.0-0.1) 01/01/22 03:30 Absolute Nucleated RBC 0.0 /100WBC 01/01/22 03:30 Sodium 140 mmol/L (136-145) 01/01/22 03:30 Corrected Sodium 140 mmol/L (136-145) 01/01/22 03:30 Potassium 4.0 mmol/L (3.5-5.1) 01/01/22 07:33 Chloride 106 mmol/L (98-107) 01/01/22 03:30 Carbon Dioxide 28.4 mmol/L (21-32) 01/01/22 03:30 BUN 16 mg/dL (7-18) 01/01/22 03:30 Creatinine 1.12 mg/dL (0.55-1.02) H 01/01/22 03:30 Est GFR (MDRD) Af Amer 59 (>60) 01/01/22 03:30 Est GFR (MDRD) Non-Af 49 (>60) L 01/01/22 03:30 Glucose 115 mg/dL (65-99) H 01/01/22 03:30 Calcium 8.9 mg/dL (8.5-10.1) 01/01/22 03:30 Corrected Calcium 9.8 mg/dL (8.5-10.1) 01/01/22 03:30 Magnesium 2.1 mg/dL (1.7-2.9) 01/01/22 03:30 Total Bilirubin 0.30 mg/dL (0.2-1.0) 01/01/22 03:30 AST 15 Units/L (15-37) 01/01/22 03:30 ALT 23 Units/L (12-78) 01/01/22 03:30 Alkaline Phosphatase 120 Units/L (46-116) H 01/01/22 03:30 Total Protein 5.7 g/dL (6.4-8.2) L 01/01/22 03:30 Albumin 2.9 g/dL (3.4-5.0) L 01/01/22 03:30 Globulin 2.8 g/dL (2.5-4.5) 01/01/22 03:30 Albumin/Globulin Ratio 1.0 Ratio (1.1-2.1) L 01/01/22 03:30 Specimen Type Clean catch urine 12/30/21 07:40 Urine Color Yellow (YELLOW) 12/30/21 07:40 Urine Appearance Slightly hazy (CLEAR) 12/30/21 07:40 Urine pH 5.0 (5.0 - 8.0) 12/30/21 07:40 Ur Specific [place] 1.025 (1.000-1.030) 12/30/21 07:40 Urine Protein 1+ (NEGATIVE) 12/30/21 07:40 Urine Glucose (UA) Negative (NEGATIVE) 12/30/21 07:40 Urine Ketones Negative (NEGATIVE) 12/30/21 07:40 Urine Blood 2+ (NEGATIVE) 12/30/21 07:40 Urine Nitrite Positive (NEGATIVE) 12/30/21 07:40 Urine Bilirubin Negative (NEGATIVE) 12/30/21 07:40 Urine Urobilinogen Normal (NORMAL) 12/30/21 07:40 Ur Leukocyte Esterase 1+ (NEGATIVE) 12/30/21 07:40 Urine RBC 5-10 /HPF (0-3) A 12/30/21 07:40 Urine WBC 3-5 /HPF (0-5) 12/30/21 07:40 Ur Squamous Epith Cells Rare /HPF (NEGATIVE) 12/30/21 07:40 Ur Transition Epith Cell Few /HPF (NEGATIVE) 12/30/21 07:40 Amorphous Sediment 1+ /HPF (NEGATIVE) 12/30/21 07:40 Urine Bacteria Trace /HPF (NEGATIVE) 12/30/21 07:40 Hyaline Casts Few /LPF (NEGATIVE) 12/30/21 07:40 Ur Culture Indicated? Yes/culture set up 12/30/21 07:40 SARS-CoV-2 (PCR) Negative (NEGATIVE) 12/29/21 17:45 - Plan (1) Intractable pain Status: Acute Plan: PHYSICAL THERAPY, ROCEPHIN 1G IV DAILY, TORADOL 30MG IV Q8H, HYDROCODONE/ACET 10/325MG PO Q4H PRN, COLACE 100MG PO HS, MILK OF MAGNESIA 15ML PO QID PRN, XARELTO 20MG PO DAILY, ULTRAM 50MG PO Q4H PRN, AND THE POTASSIUM PROTOCOL. (2) Pelvic fracture Status: Acute Qualifiers: Encounter type: initial encounter Pelvic bone location: other part of pelvis Fracture type: closed Qualified Code(s): S32.89XA - Fracture of other parts of pelvis, initial encounter for closed fracture (3) Compression fracture of lumbar vertebra Status: Acute Qualifiers: Encounter type: initial encounter Lumbar vertebra fracture level: L2 Benjy lified Code(s): S32.020A - Wedge compression fracture of second lumbar vertebra, initial encounter for closed fracture (4) UTI (urinary tract infection) Status: Acute Qualifiers: Urinary tract infection type: acute cystitis Hematuria presence: with hematuria Qualified Code(s): N30.01 - Acute cystitis with hematuria (5) GERD (gastroesophageal reflux disease) Status: Chronic Qualifiers: Esophagitis presence: esophagitis presence not specified Qualified Code(s): K21.9 - Gastro-esophageal reflux disease without esophagitis (6) Essential hypertension Status: Chronic (7) Chronic a-fib Status: Chronic (8) Hyperthyroidism Status: Chronic (9) Thoracic aortic aneurysm Status: Chronic Qualifiers: Presence of rupture: without rupture Qualified Code(s): I71.2 - Thoracic aortic aneurysm, without rupture
[2022-01-01] MEDS: NORCO 10/325 TAB PO PRN (11:19)
[2022-01-01] MEDS ORDERED: PYRIDIUM PO PRN (16:10)
[2022-01-01] MEDS: FLOMAX PO SCH (20:24)
[2022-01-01] MEDS: SINGULAIR TAB 10 MG PO SCH (20:24)
[2022-01-01] MEDS: LYRICA CAP 75 mg PO SCH (20:24)
[2022-01-01] MEDS: COLACE CAP 100 MG PO SCH (20:24)
[2022-01-02] MEDS: TORADOL 30 MG VIAL IVP SCH ×3 (01:57→17:54)
[2022-01-02 05:15] LABS: BASOPHILS % (AUTO) 1.3 % (0.2-1.0); EOSINOPHILS # (AUTO) 0.1 x10^3/uL (0.0-0.2); EOSINOPHILS % (AUTO) 2.1 % (0.9-2.9); HEMATOCRIT 36.2 % (36.0-47.0); HEMOGLOBIN 12.3 g/dL (12.0-16.0); LYMPHOCYTES # (AUTO) 1.3 X10^3/uL (1.3-2.9); LYMPHOCYTES % (AUTO) 40.6 % (21.0-51.0); MEAN CORPUSCULAR HEMOGLOBIN 30.5 pg (27.0-34.0); MEAN CORPUSCULAR HGB CONC 34.1 g/dL (33.0-35.0); MEAN CORPUSCULAR VOLUME 89.6 fL (80.0-100.0); MEAN PLATELET VOLUME 8.1 fL (7.4-11.0); MONOCYTES # (AUTO) 0.4 x10^3/uL (0.3-0.8); MONOCYTES % (AUTO) 12.3 % (0.0-13.0); NEUTROPHILS # (AUTO) 1.4 x10^3/uL (2.2-4.8); NEUTROPHILS % (AUTO) 43.7 % (42.0-75.0); RED BLOOD COUNT 4.03 X10^6/uL (3.5-5.4); RED CELL DISTRIBUTION WIDTH 16.4 % (11.6-16.5); WHITE BLOOD COUNT 3.2 X10^3/uL (3.6-10.0)
[2022-01-02 05:16] LABS: ALANINE AMINOTRANSFERASE 22 Units/L (12-78); ALKALINE PHOSPHATASE 116 Units/L (46-116); ASPARTATE AMINO TRANSFERASE 18 Units/L (15-37); BLOOD UREA NITROGEN 13 mg/dL (7-18); CARBON DIOXIDE 30.4 mmol/L (21-32); CHLORIDE 107 mmol/L (98-107); COR CA(FOR HYPOALB) 9.8 mg/dL (8.5-10.1); CREATININE 1.05 mg/dL (0.55-1.02); MAGNESIUM 2.2 mg/dL (1.7-2.9); SODIUM 140 mmol/L (136-145); TOTAL PROTEIN 5.8 g/dL (6.4-8.2); eGFR NON BLACK RACES 53 (>60)
[2022-01-02] MEDS: CORDARONE TAB 200 MG PO SCH (08:41)
[2022-01-02] MEDS: PREDNISONE TAB 5 MG PO SCH (08:42)
[2022-01-02] MEDS: SENOKOT PO SCH ×2 (08:42→21:50)
[2022-01-02] MEDS: PROTONIX TAB 40 MG PO SCH ×2 (08:43→21:50)
[2022-01-02] MEDS: XARELTO PO SCH (08:43)
[2022-01-02] MEDS: SYNTHROID 112 mcg TAB PO SCH (08:43)
[2022-01-02] MEDS: ROCEPHIN VIAL 1 GRAM 1 G in NS 100 ML IV 100 ML IV SCH (08:44)
[2022-01-02] MEDS: NORCO 10/325 TAB PO PRN (09:18)
--- NOTE | 2022-01-02 10:25 | PCM.PROG ---
Progress Note - Progress Note for Day of Date of Exam: 01/01/22 - Subjective Subjective: IS CURRENTLY INPATIENT STATUS FOR TREATMENT OF INTRACTABLE PAIN DUE TO PELVIC FRACTURE AND COMPRESSION FRACUTURE OF L2 AND URINARY TRACT INFECTION. TODAY, SHE IS ALERT AND ORIENTED, LYING IN BED ON MORNING ROUNDS. SHE CONTINUES WITH COMPLAINTS OF MODERATE PAIN WITH MOVEMENT AND ACTIVITY. SHE ALSO REPORTS WEAKNESS AND SHORTNESS OF BREATH AT TIMES. SHE DOES REPORT SLIGHT IMPROVEMENT IN PAIN SINCE ADMISSION. ON EXAMINATION, SHE IS BRADYCARDIC WITH HR RUNNING IN THE 50s. REGULAR RHYTHM. BILATERAL LUNGS NOTED WITH DIMINISHED LUNG SOUNDS THROUGHOUT. ABDOMEN IS ROUND, SOFT, AND NON-TENDER WITH NORMAL BOWEL SOUNDS NOTED IN ALL QUADRANTS. TENDERNESS NOTED TO LUMBAR SPINE. NO UPPER OR L OWER EXTREMITY EDEMA NOTED. HER VITALS THIS MORNING ARE: 98.0-52-18-98%-149/69. LABS WERE OBTAINED. WBC 3.2, RBC 3.94, HGB 12.0, HCT 35.7, PLT COUNT 126, SODIUM 140, POTASSIUM 3.7, BUN 16, CREATININE 1.12, GLUCOSE 115, CREATININE 1.12, GLUCOSE 115, AST 15, ALT 23, ALK PHOS 120, TOTAL PROTEIN 5.7, ALBUMIN 2.9. URINE CULTURE REVEALED GROWTH OF E.COLI. SHE IS CURRENTLY RECEIVING ROCEPHIN 1G IV DAILY, TORADOL 30MG IV Q8H, HYDROCODONE/ACET 10/325MG PO Q4H PRN, COLACE 100MG PO HS, MILK OF MAGNESIA 15ML PO QID PRN, XARELTO 20MG PO DAILY, ULTRAM 50MG PO Q4H PRN, AND THE POTASSIUM PROTOCOL. HER HOME MEDICATIONS WERE RESUMED. WE WILL CONTINUE WITH CURRENT PLAN OF CARE TODAY. PHYSICAL THERAPY HAS BEEN WORKING WITH PATIENT. SHE HAS BEEN COOPERATIVE WITH THERAPY. OTHERWISE, WE WILL FOLLOW-UP WITH AM LABS AND CONTINUE TO MONITOR. TIME SPENT ON CLINICAL ASSESSMENT, REVIEWING LABS AND IMAGING, DECISION MAKING, AND DOCUMENTATION GREATER THAN 45 MINUTES. - Past Medical Family Social History Past Med/Fam/Surg Hx: No changes since H&P Allergies: Allergies albuterol Allergy (Verified 02/27/21 10:00) caffeine Allergy (Verified 02/27/21 10:00) epinephrine Allergy (Verified 02/27/21 10:00) phenobarbital Allergy (Verified 02/27/21 10:00) - Review of Systems ROS: No change since H&P - Vital Signs and I&O's Vital Signs: Temperature 97.9 F Pulse Rate [Left Brachial] 86 Pulse Rate 62 Respiratory Rate 20 Blood Pressure [Left Arm] 117/66 Blood Pressure [Left Arm] 117/54 Blood Pressure 97/56 O2 Sat by Pulse Oximetry 92 Intake and Output: Intake & Output 12/30/21 12/31/21 01/01/22 01/02/22 11:59 11:59 11:59 11:59 Intake Total 1180 / 1180 1080 / 1080 1040 / 1040 Balance 1180 / 1180 1080 / 1080 1040 / 1040 - Physical Exam Oriented: Normal Eyes: Normal Ear: Normal Nose: Normal Respiratory: Normal Cardiovascular: Bradycardia : Normal Auscultation: Bowel Sounds: Normal Palpation: Normal Tenderness: Normal Skin: Normal Musculoskeletal: Back:Thoracic, Back:Lumbar, Pelvis, Tender Psychiatric: Normal Mood Description: Calm Affect: Normal Speech Pattern: Clear, Appropriate - Laboratory and Diagnostics Result Diagrams: 01/02/22 04:49 01/02/22 04:49 Labs: 12/30/21 07:40 Urine,Clean Catch Urine Culture - Final Escherichia Coli Laboratory WBC 3.2 X10^3/uL (3.6-10.0) L 01/02/22 04:49 RBC 4.03 X10^6/uL (3.5-5.4) 01/02/22 04:49 Hgb 12.3 g/dL (12.0-16.0) 01/02/22 04:49 Hct 36.2 % (36.0-47.0) 01/02/22 04:49 MCV 89.6 fL (80.0-100.0) 01/02/22 04:49 MCH 30.5 pg (27.0-34.0) 01/02/22 04:49 MCHC 34.1 g/dL (33.0-35.0) 01/02/22 04:49 RDW 16.4 % (11.6-16.5) 01/02/22 04:49 Plt Count 131 X10^3/uL (150.0-450.0) L 01/02/22 04:49 MPV 8.1 fL (7.4-11.0) 01/02/22 04:49 Neut % (Auto) 43.7 % (42.0-75.0) 01/02/22 04:49 Lymph % (Auto) 40.6 % (21.0-51.0) 01/02/22 04:49 [place] % (Auto) 12.3 % (0.0-13.0) 01/02/22 04:49 Eos % (Auto) 2.1 % (0.9-2.9) 01/02/22 04:49 Baso % (Auto) 1.3 % (0.2-1.0) H 01/02/22 04:49 Neut # (Auto) 1.4 x10^3/uL (2.2-4.8) L 01/02/22 04:49 Lymph # (Auto) 1.3 X10^3/uL (1.3-2.9) 01/02/22 04:49 [place] # (Auto) 0.4 x10^3/uL (0.3-0.8) 01/02/22 04:49 Eos # (Auto) 0.1 x10^3/uL (0.0-0.2) 01/02/22 04:49 Baso # (Auto) 0.0 X10^3/uL (0.0-0.1) 01/02/22 04:49 Absolute Nucleated RBC 0.1 /100WBC 01/02/22 04:49 Sodium 140 mmol/L (136-145) 01/02/22 04:49 Corrected Sodium TNP 01/02/22 04:49 Potassium 4.0 mmol/L (3.5-5.1) 01/02/22 04:49 Chloride 107 mmol/L (98-107) 01/02/22 04:49 Carbon Dioxide 30.4 mmol/L (21-32) 01/02/22 04:49 BUN 13 mg/dL (7-18) 01/02/22 04:49 Creatinine 1.05 mg/dL (0.55-1.02) H 01/02/22 04:49 Est GFR (MDRD) Af Amer > 60 (>60) 01/02/22 04:49 Est GFR (MDRD) Non-Af 53 (>60) L 01/02/22 04:49 Glucose 82 mg/dL (65-99) 01/02/22 04:49 Calcium 9.0 mg/dL (8.5-10.1) 01/02/22 04:49 Corrected Calcium 9.8 mg/dL (8.5-10.1) 01/02/22 04:49 Magnesium 2.2 mg/dL (1.7-2.9) 01/02/22 04:49 Total Bilirubin 0.50 mg/dL (0.2-1.0) 01/02/22 04:49 AST 18 Units/L (15-37) 01/02/22 04:49 ALT 22 Units/L (12-78) 01/02/22 04:49 Alkaline Phosphatase 116 Units/L (46-116) 01/02/22 04:49 B-Natriuretic Peptide 145 pg/mL (0-79) H 01/01/22 03:30 Total Protein 5.8 g/dL (6.4-8.2) L 01/02/22 04:49 Albumin 3.0 g/dL (3.4-5.0) L 01/02/22 04:49 Globulin 2.8 g/dL (2.5-4.5) 01/02/22 04:49 Albumin/Globulin Ratio 1.1 Ratio (1.1-2.1) 01/02/22 04:49 Specimen Type Clean catch urine 12/30/21 07:40 Urine Color Yellow (YELLOW) 12/30/21 07:40 Urine Appearance Slightly hazy (CLEAR) 12/30/21 07:40 Urine pH 5.0 (5.0 - 8.0) 12/30/21 07:40 Ur Specific [place] 1.025 (1.000-1.030) 12/30/21 07:40 Urine Protein 1+ (NEGATIVE) 12/30/21 07:40 Urine Glucose (UA) Negative (NEGATIVE) 12/30/21 07:40 Urine Ketones Negative (NEGATIVE) 12/30/21 07:40 Urine Blood 2+ (NEGATIVE) 12/30/21 07:40 Urine Nitrite Positive (NEGATIVE) 12/30/21 07:40 Urine Bilirubin Negative (NEGATIVE) 12/30/21 07:40 Urine Urobilinogen Normal (NORMAL) 12/30/21 07:40 Ur Leukocyte Esterase 1+ (NEGATIVE) 12/30/21 07:40 Urine RBC 5-10 /HPF (0-3) A 12/30/21 07:40 Urine WBC 3-5 /HPF (0-5) 12/30/21 07:40 Ur Squamous Epith Cells Rare /HPF (NEGATIVE) 12/30/21 07:40 Ur Transition Epith Cell Few /HPF (NEGATIVE) 12/30/21 07:40 Amorphous Sediment 1+ /HPF (NEGATIVE) 12/30/21 07:40 Urine Bacteria Trace /HPF (NEGATIVE) 12/30/21 07:40 Hyaline Casts Few /LPF (NEGATIVE) 12/30/21 07:40 Ur Culture Indicated? Yes/culture set up 12/30/21 07:40 SARS-CoV-2 (PCR) Negative (NEGATIVE) 12/29/21 17:45 - Plan (1) Intractable pain Status: Acute Plan: PHYSICAL THERAPY, ROCEPHIN 1G IV DAILY, TORADOL 30MG IV Q8H, HYDROCODONE/ACET 10/325MG PO Q4H PRN, COLACE 100MG PO HS, MILK OF MAGNESIA 15ML PO QID PRN, XARELTO 20MG PO DAILY, ULTRAM 50MG PO Q4H PRN, AND THE POTASSIUM PROTOCOL. (2) Pelvic fracture Status: Acute Qualifiers: Encounter type: initial encounter Pelvic bone location: other part of pelvis Fracture type: closed Qualified Code(s): S32.89XA - Fracture of other parts of pelvis, initial encounter for closed fracture (3) Compression fracture of lumbar vertebra Status: Acute Qualifiers: Encounter type: initial encounter Lumbar vertebra fracture level: L2 Qualified Code(s): S32.020A - Wedge compression fracture of second lumbar vertebra, initial encounter for closed fracture (4) UTI (urinary tract infection) Status: Acute Qualifiers: Urinary tract infection type: acute cystitis Hematuria presence: with hematuria Qualified Code(s): N30.01 - Acute cystitis with hematuria (5) GERD (gastroesophageal reflux disease) Status: Chronic Qualifiers: Esophagitis presence: esophagitis presence not specified Qualified Code(s): K21.9 - Gastro-esophageal reflux disease without esophagitis (6) Essential hypertension Status: Chronic (7) Chronic a-fib Status: Chronic (8) Hyperthyroidism Status: Chronic (9) Thoracic aortic aneurysm Status: Chronic Qualifiers: Presence of rupture: without rupture Qualified Code(s): I71.2 - Thoracic aortic aneurysm, without rupture
--- NOTE | 2022-01-02 11:03 | RAD ---
HISTORYSOBSTUDYPortable AP [id number] size normal with clear lungs and pleural spaces. There is no evidence for CHF, pneumonia, atelectasis or other acute process. Cardiovascular configuration is consistent with arteriosclerosis and/or hypertension.IMPRESSIONNo change; no acute abnormality.Electronically signed by: HENRY PADILLA (Jan 02, 2022 11:02:10)
--- NOTE | 2022-01-02 16:18 | PCM.PROG ---
Progress Note - Progress Note for Day of Date of Exam: 01/02/22 - Subjective Subjective: IS CURRENTLY INPATIENT STATUS FOR TREATMENT OF INTRACTABLE PAIN DUE TO PELVIC FRACTURE AND COMPRESSION FRACUTURE OF L2 AND URINARY TRACT INFECTION. TODAY, SHE IS ALERT AND ORIENTED, LYING IN BED ON MORNING ROUNDS. SHE CONTINUES WITH COMPLAINTS OF MODERATE TO SEVERE PAIN WITH MOVEMENT AND ACTIVITY. SHE ALSO REPORTS WEAKNESS AND SHORTNESS OF BREATH AT TIMES. SHE DENIES SIGNIFICANT IMPROVEMENT IN PAIN TODAY. ON EXAMINATION, SHE IS BRADYCARDIC WITH HR RUNNING IN THE 50s. REGULAR RHYTHM. BILATERAL LUNGS NOTED WITH DIMINISHED LUNG SOUNDS THROUGHOUT. ABDOMEN IS ROUND, SOFT, AND NON-TENDER WITH NORMAL BOWEL SOUNDS NOTED IN ALL QUADRANTS. TENDERNESS NOTED TO LUMBAR SPINE. NO UPPER OR L OWER EXTREMITY EDEMA NOTED. HER VITALS THIS MORNING ARE: 97.9-86-20-92%-117/66. LABS WERE OBTAINED. WBC 3.2, RBC 4.03, HGB 12.3, HCT 36.2, SODIUM 140, POTASSIUM 4.0, BUN 13, CREATININE 1.05, GLUCOSE 82, TOTAL PRTOEIN 5.8, ALBUMIN 3.0. URINE CULTURE REVEALED GROWTH OF E.COLI. SHE IS CURRENTLY RECEIVING ROCEPHIN 1G IV DAILY, TORADOL 30MG IV Q8H, HYDROCODONE/ACET 10/325MG PO Q4H PRN, COLACE 100MG PO HS, MILK OF MAGNESIA 15ML PO QID PRN, XARELTO 20MG PO DAILY, ULTRAM 50MG PO Q4H PRN, AND THE POTASSIUM PROTOCOL. HER HOME MEDICATIONS WERE RESUMED. WE WILL CONTINUE WITH CURRENT PLAN OF CARE TODAY. PHYSICAL THERAPY HAS BEEN WORKING WITH PATIENT. SHE HAS BEEN COOPERATIVE WITH THERAPY DESPITE SEVERE PAIN. WE ADVISED PATIENT THAT PAIN MEDICATION IS NEEDED AND THAT SHE WILL NEED TO CALL FOR IT. OTHERWISE, WE WILL FOLLOW-UP WITH AM LABS AND CONTINUE TO MONITOR. TIME SPENT ON CLINICAL ASSESSMENT, REVIEWING LABS AND IMAGING, DECISION MAKING, AND DOCUMENTATION GREATER THAN 45 MINUTES. - Past Medical Family Social History Past Med/Fam/Surg Hx: No changes since H&P Allergies: Allergies albuterol Allergy (Verified 02/27/21 10:00) caffeine Allergy (Verified 02/27/21 10:00) epinephrine Allergy (Verified 02/27/21 10:00) phenobarbital Allergy (Verified 02/27/21 10:00) - Review of Systems ROS: No change since H&P - Vital Signs and I&O's Vital Signs: Temperature 98.1 F Pulse Rate [Left Brachial] 72 Pulse Rate 62 Respiratory Rate 18 Blood Pressure [Left Arm] 142/75 Blood Pressure [Left Arm] 117/54 Blood Pressure 97/56 O2 Sat by Pulse Oximetry 92 Intake and Output: Intake & Output 12/31/21 01/01/22 01/02/22 01/03/22 11:59 11:59 11:59 11:59 Intake Total 1180 / 1180 1080 / 1080 1040 / 1040 100 / 100 Balance 1180 / 1180 1080 / 1080 1040 / 1040 100 / 100 - Physical Exam Oriented: Normal Eyes: Normal Ear: Normal Nose: Normal Respiratory: Normal Cardiovascular: Bradycardia : Normal Auscultation: Bowel Sounds: Normal Tenderness: Normal Skin: Normal Musculoskeletal: Back:Thoracic, Back:Lumbar, Pelvis, Tender Psychiatric: Normal Mood Description: Calm Affect: Normal Speech Pattern: Clear, Appropriate - Laboratory and Diagnostics Result Diagrams: 01/02/22 04:49 01/02/22 04:49 Labs: 12/30/21 07:40 Urine,Clean Catch Urine Culture - Final Escherichia Coli Laboratory WBC 3.2 X10^3/uL (3.6-10.0) L 01/02/22 04:49 RBC 4.03 X10^6/uL (3.5-5.4) 01/02/22 04:49 Hgb 12.3 g/dL (12.0-16.0) 01/02/22 04:49 Hct 36.2 % (36.0-47.0) 01/02/22 04:49 MCV 89.6 fL (80.0-100.0) 01/02/22 04:49 MCH 30.5 pg (27.0-34.0) 01/02/22 04:49 MCHC 34.1 g/dL (33.0-35.0) 01/02/22 04:49 RDW 16.4 % (11.6-16.5) 01/02/22 04:49 Plt Count 131 X10^3/uL (150.0-450.0) L 01/02/22 04:49 MPV 8.1 fL (7.4-11.0) 01/02/22 04:49 Neut % (Auto) 43.7 % (42.0-75.0) 01/02/22 04:49 Lymph % (Auto) 40.6 % (21.0-51.0) 01/02/22 04:49 [place] % (Auto) 12.3 % (0.0-13.0) 01/02/22 04:49 Eos % (Auto) 2.1 % (0.9-2.9) 01/02/22 04:49 Baso % (Auto) 1.3 % (0.2-1.0) H 01/02/22 04:49 Neut # (Auto) 1.4 x10^3/uL (2.2-4.8) L 01/02/22 04:49 Lymph # (Auto) 1.3 X10^3/uL (1.3-2.9) 01/02/22 04:49 [place] # (Auto) 0.4 x10^3/uL (0.3-0.8) 01/02/22 04:49 Eos # (Auto) 0.1 x10^3/uL (0.0-0.2) 01/02/22 04:49 Baso # (Auto) 0.0 X10^3/uL (0.0-0.1) 01/02/22 04:49 Absolute Nucleated RBC 0.1 /100WBC 01/02/22 04:49 Sodium 140 mmol/L (136-145) 01/02/22 04:49 Corrected Sodium TNP 01/02/22 04:49 Potassium 4.0 mmol/L (3.5-5.1) 01/02/22 04:49 Chloride 107 mmol/L (98-107) 01/02/22 04:49 Carbon Dioxide 30.4 mmol/L (21-32) 01/02/22 04:49 BUN 13 mg/dL (7-18) 01/02/22 04:49 Creatinine 1.05 mg/dL (0.55-1.02) H 01/02/22 04:49 Est GFR (MDRD) Af Amer > 60 (>60) 01/02/22 04:49 Est GFR (MDRD) Non-Af 53 (>60) L 01/02/22 04:49 Glucose 82 mg/dL (65-99) 01/02/22 04:49 Calcium 9.0 mg/dL (8.5-10.1) 01/02/22 04:49 Corrected Calcium 9.8 mg/dL (8.5-10.1) 01/02/22 04:49 Magnesium 2.2 mg/dL (1.7-2.9) 01/02/22 04:49 Total Bilirubin 0.50 mg/dL (0.2-1.0) 01/02/22 04:49 AST 18 Units/L (15-37) 01/02/22 04:49 ALT 22 Units/L (12-78) 01/02/22 04:49 Alkaline Phosphatase 116 Units/L (46-116) 01/02/22 04:49 B-Natriuretic Peptide 145 pg/mL (0-79) H 01/01/22 03:30 Total Protein 5.8 g/dL (6.4-8.2) L 01/02/22 04:49 Albumin 3.0 g/dL (3.4-5.0) L 01/02/22 04:49 Globulin 2.8 g/dL (2.5-4.5) 01/02/22 04:49 Albumin/Globulin Ratio 1.1 Ratio (1.1-2.1) 01/02/22 04:49 Specimen Type Clean catch urine 12/30/21 07:40 Urine Color Yellow (YELLOW) 12/30/21 07:40 Urine Appearance Slightly hazy (CLEAR) 12/30/21 07:40 Urine pH 5.0 (5.0 - 8.0) 12/30/21 07:40 Ur Specific [place] 1.025 (1.000-1.030) 12/30/21 07:40 Urine Protein 1+ (NEGATIVE) 12/30/21 07:40 Urine Glucose (UA) Negative (NEGATIVE) 12/30/21 07:40 Urine Ketones Negative (NEGATIVE) 12/30/21 07:40 Urine Blood 2+ (NEGATIVE) 12/30/21 07:40 Urine Nitrite Positive (NEGATIVE) 12/30/21 07:40 Urine Bilirubin Negative (NEGATIVE) 12/30/21 07:40 Urine Urobilinogen Normal (NORMAL) 12/30/21 07:40 Ur Leukocyte Esterase 1+ (NEGATIVE) 12/30/21 07:40 Urine RBC 5-10 /HPF (0-3) A 12/30/21 07:40 Urine WBC 3-5 /HPF (0-5) 12/30/21 07:40 Ur Squamous Epith Cells Rare /HPF (NEGATIVE) 12/30/21 07:40 Ur Transition Epith Cell Few /HPF (NEGATIVE) 12/30/21 07:40 Amorphous Sediment 1+ /HPF (NEGATIVE) 12/30/21 07:40 Urine Bacteria Trace /HPF (NEGATIVE) 12/30/21 07:40 Hyaline Casts Few /LPF (NEGATIVE) 12/30/21 07:40 Ur Culture Indicated? Yes/culture set up 12/30/21 07:40 SARS-CoV-2 (PCR) Negative (NEGATIVE) 12/29/21 17:45 - Plan (1) Intractable pain Status: Acute Plan: PHYSICAL THERAPY, ROCEPHIN 1G IV DAILY, TORADOL 30MG IV Q8H, HYDROCODONE/ACET 10/325MG PO Q4H PRN, COLACE 100MG PO HS, MILK OF MAGNESIA 15ML PO QID PRN, XARELTO 20MG PO DAILY, ULTRAM 50MG PO Q4H PRN, AND THE POTASSIUM PROTOCOL. (2) Pelvic fracture Status: Acute Qualifiers: Encounter type: initial encounter Pelvic bone location: other part of pelvis Fracture type: closed Qualified Code(s): S32.89XA - Fracture of other parts of pelvis, initial encounter for closed fracture (3) Compression fracture of lumbar vertebra Status: Acute Qualifiers: Encounter type: initial encounter Lumbar vertebra fracture level: L2 Qualified Code(s): S32.020A - Wedge compression fracture of second lumbar vertebra, initial encounter for closed fracture (4) UTI (urinary tract infection) Status: Acute Qualifiers: Urinary tract infection type: acute cystitis Hematuria presence: with hematuria Qualified Code(s): N30.01 - Acute cystitis with hematuria (5) GERD (gastroesophageal reflux disease) Status: Chronic Qualifiers: Esophagitis presence: esophagitis presence not specified Qualified Code(s): K21.9 - Gastro-esophageal reflux disease without esophagitis (6) Essential hypertension Status: Chronic (7) Chronic a-fib Status: Chronic (8) Hyperthyroidism Status: Chronic (9) Thoracic aortic aneurysm Status: Chronic Qualifiers: Presence of rupture: without rupture Qualified Code(s): I71.2 - Thoracic aortic aneurysm, without rupture
[2022-01-02] MEDS: COLACE CAP 100 MG PO SCH (21:50)
[2022-01-02] MEDS: SINGULAIR TAB 10 MG PO SCH (21:50)
[2022-01-02] MEDS: FLOMAX PO SCH (21:50)
[2022-01-02] MEDS: LYRICA CAP 75 mg PO SCH (21:50)
[2022-01-03] MEDS: TORADOL 30 MG VIAL IVP SCH ×3 (03:15→17:29)
[2022-01-03] MEDS: KLONOPIN TAB 0.5 MG PO PRN ×2 (03:55→21:24)
[2022-01-03 05:16] LABS: BASOPHILS % (AUTO) 0.7 % (0.2-1.0); EOSINOPHILS # (AUTO) 0.1 x10^3/uL (0.0-0.2); EOSINOPHILS % (AUTO) 2.4 % (0.9-2.9); HEMATOCRIT 35.4 % (36.0-47.0); HEMOGLOBIN 12.4 g/dL (12.0-16.0); LYMPHOCYTES # (AUTO) 1.4 X10^3/uL (1.3-2.9); LYMPHOCYTES % (AUTO) 40.6 % (21.0-51.0); MEAN CORPUSCULAR HEMOGLOBIN 31.3 pg (27.0-34.0); MEAN CORPUSCULAR VOLUME 89.4 fL (80.0-100.0); MEAN PLATELET VOLUME 7.9 fL (7.4-11.0); MONOCYTES # (AUTO) 0.4 x10^3/uL (0.3-0.8); MONOCYTES % (AUTO) 12.4 % (0.0-13.0); NEUTROPHILS # (AUTO) 1.5 x10^3/uL (2.2-4.8); NEUTROPHILS % (AUTO) 43.9 % (42.0-75.0); RED BLOOD COUNT 3.95 X10^6/uL (3.5-5.4); RED CELL DISTRIBUTION WIDTH 16.1 % (11.6-16.5); WHITE BLOOD COUNT 3.5 X10^3/uL (3.6-10.0)
[2022-01-03 05:28] LABS: ALANINE AMINOTRANSFERASE 25 Units/L (12-78); ALKALINE PHOSPHATASE 118 Units/L (46-116); ASPARTATE AMINO TRANSFERASE 18 Units/L (15-37); BLOOD UREA NITROGEN 12 mg/dL (7-18); CALCIUM 9.2 mg/dL (8.5-10.1); CARBON DIOXIDE 29.1 mmol/L (21-32); CHLORIDE 106 mmol/L (98-107); CREATININE 1.01 mg/dL (0.55-1.02); SODIUM 140 mmol/L (136-145); TOTAL PROTEIN 5.7 g/dL (6.4-8.2); eGFR NON BLACK RACES 55 (>60)
[2022-01-03] MEDS: SYNTHROID 112 mcg TAB PO SCH (08:47)
[2022-01-03] MEDS: PREDNISONE TAB 5 MG PO SCH (08:47)
[2022-01-03] MEDS: PROTONIX TAB 40 MG PO SCH ×2 (08:47→21:22)
[2022-01-03] MEDS: XARELTO PO SCH (08:48)
[2022-01-03] MEDS: SENOKOT PO SCH ×2 (08:48→21:23)
[2022-01-03] MEDS: ROCEPHIN VIAL 1 GRAM 1 G in NS 100 ML IV 100 ML IV SCH (08:49)
[2022-01-03] MEDS: CORDARONE TAB 200 MG PO SCH (08:59)
[2022-01-03] MEDS ORDERED: NS 100 ML IV 100 ML ONE (09:02)
--- NOTE | 2022-01-03 11:32 | PCM.PROG ---
Progress Note Progress Note for Day of Date of Exam: 01/03/22 Subjective Subjective: Patient seen at bedside, no acute events overnight. She is currently admitted for intractable pain due to pelvic and lumbar compression fracture along with UTI. She states she feels slightly better. She did ambulate to the bathroom. She states it did not hurt as much initially but then started hurting more in the right lower back/pelvic area. She has been working with PT. Labs/imaging reviewed Plan: continue current treatment, continue IV Rocephin. Continue pain control as needed, discussed with patient to let the nurse know when she is in pain with activity. Continue IV Rocephin. PT/OT as tolerated. Past Medical Family Social History Past Med/Fam/Surg Hx: No changes since H&P Allergies: Allergies albuterol Allergy (Verified 02/27/21 10:00) caffeine Allergy (Verified 02/27/21 10:00) epinephrine Allergy (Verified 02/27/21 10:00) phenobarbital Allergy (Verified 02/27/21 10:00) Review of Systems ROS: No change since H&P Vital Signs and I&O's Vital Signs: Temperature 98.2 F Pulse Rate [Left Brachial] 62 Pulse Rate 62 Respiratory Rate 18 Blood Pressure [Left Arm] 109/61 Blood Pressure [Left Arm] 134/70 Blood Pressure 97/56 O2 Sat by Pulse Oximetry 96 Intake and Output: Intake & Output 12/31/21 01/01/22 01/02/22 01/03/22 23:59 23:59 23:59 23:59 Intake Total 996 / 996 880 / 880 1330 / 1330 310 / 310 Balance 996 / 996 880 / 880 1330 / 1330 310 / 310 Physical Exam Oriented: Normal Eyes: Normal Ear: Normal Nose: Normal Respiratory: Normal Cardiovascular: Normal Auscultation: Bowel Sounds: Normal Tenderness: Normal Skin: Normal Musculoskeletal: Back:Thoracic, Back:Lumbar, Pelvis and Tender Psychiatric: Normal Mood Description: Calm Affect: Normal Speech Pattern: Clear and Appropriate Laboratory and Diagnostics Result Diagrams: 01/03/22 04:50 01/03/22 04:50 Labs: 12/30/21 07:40 Urine,Clean Catch Urine Culture - Final Escherichia Coli Laboratory WBC 3.5 X10^3/uL (3.6-10.0) L 01/03/22 04:50 RBC 3.95 X10^6/uL (3.5-5.4) 01/03/22 04:50 Hgb 12.4 g/dL (12.0-16.0) 01/03/22 04:50 Hct 35.4 % (36.0-47.0) L 01/03/22 04:50 MCV 89.4 fL (80.0-100.0) 01/03/22 04:50 MCH 31.3 pg (27.0-34.0) 01/03/22 04:50 MCHC 35.0 g/dL (33.0-35.0) 01/03/22 04:50 RDW 16.1 % (11.6-16.5) 01/03/22 04:50 Plt Count 120 X10^3/uL (150.0-450.0) L 01/03/22 04:50 MPV 7.9 fL (7.4-11.0) 01/03/22 04:50 Neut % (Auto) 43.9 % (42.0-75.0) 01/03/22 04:50 Lymph % (Auto) 40.6 % (21.0-51.0) 01/03/22 04:50 [place] % (Auto) 12.4 % (0.0-13.0) 01/03/22 04:50 Eos % (Auto) 2.4 % (0.9-2.9) 01/03/22 04:50 Baso % (Auto) 0.7 % (0.2-1.0) 01/03/22 04:50 Neut # (Auto) 1.5 x10^3/uL (2.2-4.8) L 01/03/22 04:50 Lymph # (Auto) 1.4 X10^3/uL (1.3-2.9) 01/03/22 04:50 [place] # (Auto) 0.4 x10^3/uL (0.3-0.8) 01/03/22 04:50 Eos # (Auto) 0.1 x10^3/uL (0.0-0.2) 01/03/22 04:50 Baso # (Auto) 0.0 X10^3/uL (0.0-0.1) 01/03/22 04:50 Absolute Nucleated RBC 0.1 /100WBC 01/03/22 04:50 Sodium 140 mmol/L (136-145) 01/03/22 04:50 Corrected Sodium TNP 01/03/22 04:50 Potassium 3.7 mmol/L (3.5-5.1) 01/03/22 04:50 Chloride 106 mmol/L (98-107) 01/03/22 04:50 Carbon Dioxide 29.1 mmol/L (21-32) 01/03/22 04:50 BUN 12 mg/dL (7-18) 01/03/22 04:50 Creatinine 1.01 mg/dL (0.55-1.02) 01/03/22 04:50 Est GFR (MDRD) Af Amer > 60 (>60) 01/03/22 04:50 Est GFR (MDRD) Non-Af 55 (>60) L 01/03/22 04:50 Glucose 93 mg/dL (65-99) 01/03/22 04:50 Calcium 9.2 mg/dL (8.5-10.1) 01/03/22 04:50 Corrected Calcium 10.0 mg/dL (8.5-10.1) 01/03/22 04:50 Magnesium 2.2 mg/dL (1.7-2.9) 01/02/22 04:49 Total Bilirubin 0.40 mg/dL (0.2-1.0) 01/03/22 04:50 AST 18 Units/L (15-37) 01/03/22 04:50 ALT 25 Units/L (12-78) 01/03/22 04:50 Alkaline Phosphatase 118 Units/L (46-116) H 01/03/22 04:50 B-Natriuretic Peptide 145 pg/mL (0-79) H 01/01/22 03:30 Total Protein 5.7 g/dL (6.4-8.2) L 01/03/22 04:50 Albumin 3.0 g/dL (3.4-5.0) L 01/03/22 04:50 Globulin 2.7 g/dL (2.5-4.5) 01/03/22 04:50 Albumin/Globulin Ratio 1.1 Ratio (1.1-2.1) 01/03/22 04:50 Specimen Type Clean catch urine 12/30/21 07:40 Urine Color Yellow (YELLOW) 12/30/21 07:40 Urine Appearance Slightly hazy (CLEAR) 12/30/21 07:40 Urine pH 5.0 (5.0 - 8.0) 12/30/21 07:40 Ur Specific [place] 1.025 (1.000-1.030) 12/30/21 07:40 Urine Protein 1+ (NEGATIVE) 12/30/21 07:40 Urine Glucose (UA) Negative (NEGATIVE) 12/30/21 07:40 Urine Ketones Negative (NEGATIVE) 12/30/21 07:40 Urine Blood 2+ (NEGATIVE) 12/30/21 07:40 Urine Nitrite Positive (NEGATIVE) 12/30/21 07:40 Urine Bilirubin Negative (NEGATIVE) 12/30/21 07:40 Urine Urobilinogen Normal (NORMAL) 12/30/21 07:40 Ur Leukocyte Esterase 1+ (NEGATIVE) 12/30/21 07:40 Urine RBC 5-10 /HPF (0-3) A 12/30/21 07:40 Urine WBC 3-5 /HPF (0-5) 12/30/21 07:40 Ur Squamous Epith Cells Rare /HPF (NEGATIVE) 12/30/21 07:40 Ur Transition Epith Cell Few /HPF (NEGATIVE) 12/30/21 07:40 Amorphous Sediment 1+ /HPF (NEGATIVE) 12/30/21 07:40 Urine Bacteria Trace /HPF (NEGATIVE) 12/30/21 07:40 Hyaline Casts Few /LPF (NEGATIVE) 12/30/21 07:40 Ur Culture Indicated? Yes/culture set up 12/30/21 07:40 SARS-CoV-2 (PCR) Negative (NEGATIVE) 12/29/21 17:45 Plan (1) Intractable pain: Status: Acute (2) Pelvic fracture: Status: Acute Qualifiers: Encounter type: initial encounter Fracture type: closed Pelvic bone location: other part of pelvis Qualified Code(s): S32.89XA - Fracture of other parts of pelvis, initial encounter for closed fracture (3) Compression fracture of lumbar vertebra: Status: Acute Qualifiers: Encounter type: initial encounter Lumbar vertebra fracture level: L2 Qualified Code(s): S32.020A - Wedge compression fracture of second lumbar vertebra, initial encounter for closed fracture (4) UTI (urinary tract infection): Status: Acute Qualifiers: Hematuria presence: with hematuria Urinary tract infection type: acute cystitis Qualified Code(s): N30.01 - Acute cystitis with hematuria (5) GERD (gastroesophageal reflux disease): Status: Chronic Qualifiers: Esophagitis presence: esophagitis presence not specified Qualified Code(s): K21.9 - Gastro-esophageal reflux disease without esophagitis (6) Essential hypertension: Status: Chronic (7) Chronic a-fib: Status: Chronic (8) Hyperthyroidism: Status: Chronic (9) Thoracic aortic aneurysm: Status: Chronic Qualifiers: Presence of rupture: without rupture Qualified Code(s): I71.2 - Thoracic aortic aneurysm, without rupture
[2022-01-03] MEDS: NORCO 10/325 TAB PO PRN ×2 (12:58→21:24)
[2022-01-03] MEDS: COLACE CAP 100 MG PO SCH (21:21)
[2022-01-03] MEDS: FLOMAX PO SCH (21:22)
[2022-01-03] MEDS: LYRICA CAP 75 mg PO SCH (21:22)
[2022-01-03] MEDS: SINGULAIR TAB 10 MG PO SCH (21:23)
[2022-01-04] MEDS: TORADOL 30 MG VIAL IVP SCH (02:26)
[2022-01-04 05:23] LABS: EOSINOPHILS # (AUTO) 0.1 x10^3/uL (0.0-0.2); EOSINOPHILS % (AUTO) 2.2 % (0.9-2.9); HEMATOCRIT 36.3 % (36.0-47.0); HEMOGLOBIN 12.4 g/dL (12.0-16.0); LYMPHOCYTES # (AUTO) 1.2 X10^3/uL (1.3-2.9); LYMPHOCYTES % (AUTO) 32.7 % (21.0-51.0); MEAN CORPUSCULAR HEMOGLOBIN 30.7 pg (27.0-34.0); MEAN CORPUSCULAR HGB CONC 34.2 g/dL (33.0-35.0); MEAN CORPUSCULAR VOLUME 89.8 fL (80.0-100.0); MEAN PLATELET VOLUME 8.3 fL (7.4-11.0); MONOCYTES # (AUTO) 0.4 x10^3/uL (0.3-0.8); MONOCYTES % (AUTO) 9.7 % (0.0-13.0); NEUTROPHILS # (AUTO) 2.1 x10^3/uL (2.2-4.8); NEUTROPHILS % (AUTO) 54.4 % (42.0-75.0); RED BLOOD COUNT 4.04 X10^6/uL (3.5-5.4); RED CELL DISTRIBUTION WIDTH 16.4 % (11.6-16.5); WHITE BLOOD COUNT 3.8 X10^3/uL (3.6-10.0)
[2022-01-04 05:35] LABS: ALANINE AMINOTRANSFERASE 24 Units/L (12-78); ALKALINE PHOSPHATASE 121 Units/L (46-116); ASPARTATE AMINO TRANSFERASE 19 Units/L (15-37); BLOOD UREA NITROGEN 14 mg/dL (7-18); CALCIUM 8.8 mg/dL (8.5-10.1); CARBON DIOXIDE 27.7 mmol/L (21-32); CHLORIDE 107 mmol/L (98-107); COR CA(FOR HYPOALB) 9.6 mg/dL (8.5-10.1); CREATININE 1.03 mg/dL (0.55-1.02); SODIUM 141 mmol/L (136-145); TOTAL PROTEIN 5.8 g/dL (6.4-8.2); eGFR NON BLACK RACES 54 (>60)
[2022-01-04] MEDS: PREDNISONE TAB 5 MG PO SCH (09:06)
[2022-01-04] MEDS: SENOKOT PO SCH ×2 (09:06→20:51)
[2022-01-04] MEDS: CORDARONE TAB 200 MG PO SCH (09:07)
[2022-01-04] MEDS: XARELTO PO SCH (09:07)
[2022-01-04] MEDS: PROTONIX TAB 40 MG PO SCH ×2 (09:08→20:51)
[2022-01-04] MEDS: ROCEPHIN VIAL 1 GRAM 1 G in NS 100 ML IV 100 ML IV SCH (09:08)
[2022-01-04] MEDS: SYNTHROID 112 mcg TAB PO SCH (09:08)
--- NOTE | 2022-01-04 11:44 | PCM.PROG ---
Progress Note Progress Note for Day of Date of Exam: 01/04/22 Subjective Subjective: Patient seen at bedside, no acute events overnight. She is currently admitted for intractable pain due to pelvic and lumbar compression fracture along with UTI. She states she feels slightly better. She has been moving around in the room, sat in the chair. She has been working with PT. Labs/imaging reviewed Plan: continue current treatment, continue IV Rocephin. Continue pain control as needed, discussed with patient to let the nurse know when she is in pain with activity. Continue IV Rocephin. PT/OT as tolerated. Past Medical Family Social History Past Med/Fam/Surg Hx: No changes since H&P Allergies: Allergies albuterol Allergy (Verified 02/27/21 10:00) caffeine Allergy (Verified 02/27/21 10:00) epinephrine Allergy (Verified 02/27/21 10:00) phenobarbital Allergy (Verified 02/27/21 10:00) Review of Systems ROS: No change since H&P Vital Signs and I&O's Vital Signs: Temperature 97.6 F Pulse Rate [Left Brachial] 66 Pulse Rate 62 Respiratory Rate 18 Blood Pressure [Left Arm] 114/63 Blood Pressure [Left Arm] 134/70 Blood Pressure 97/56 O2 Sat by Pulse Oximetry 94 Intake and Output: Intake & Output 01/01/22 01/02/22 01/03/22 01/04/22 23:59 23:59 23:59 23:59 Intake Total 880 / 880 1330 / 1330 1551 / 1551 480 / 480 Balance 880 / 880 1330 / 1330 1551 / 1551 480 / 480 Physical Exam Oriented: Normal Eyes: Normal Ear: Normal Nose: Normal Respiratory: Normal Cardiovascular: Normal Auscultation: Bowel Sounds: Normal Tenderness: Normal Skin: Normal Musculoskeletal: Back:Thoracic, Back:Lumbar, Pelvis and Tender Psychiatric: Normal Mood Description: Calm Affect: Normal Speech Pattern: Clear and Appropriate Laboratory and Diagnostics Result Diagrams: 01/04/22 04:50 01/04/22 04:50 Labs: 12/30/21 07:40 Urine,Clean Catch Urine Culture - Final Escherichia Coli Laboratory WBC 3.8 X10^3/uL (3.6-10.0) 01/04/22 04:50 RBC 4.04 X10^6/uL (3.5-5.4) 01/04/22 04:50 Hgb 12.4 g/dL (12.0-16.0) 01/04/22 04:50 Hct 36.3 % (36.0-47.0) 01/04/22 04:50 MCV 89.8 fL (80.0-100.0) 01/04/22 04:50 MCH 30.7 pg (27.0-34.0) 01/04/22 04:50 MCHC 34.2 g/dL (33.0-35.0) 01/04/22 04:50 RDW 16.4 % (11.6-16.5) 01/04/22 04:50 Plt Count 126 X10^3/uL (150.0-450.0) L 01/04/22 04:50 MPV 8.3 fL (7.4-11.0) 01/04/22 04:50 Neut % (Auto) 54.4 % (42.0-75.0) 01/04/22 04:50 Lymph % (Auto) 32.7 % (21.0-51.0) 01/04/22 04:50 [place] % (Auto) 9.7 % (0.0-13.0) 01/04/22 04:50 Eos % (Auto) 2.2 % (0.9-2.9) 01/04/22 04:50 Baso % (Auto) 1.0 % (0.2-1.0) 01/04/22 04:50 Neut # (Auto) 2.1 x10^3/uL (2.2-4.8) L 01/04/22 04:50 Lymph # (Auto) 1.2 X10^3/uL (1.3-2.9) L 01/04/22 04:50 [place] # (Auto) 0.4 x10^3/uL (0.3-0.8) 01/04/22 04:50 Eos # (Auto) 0.1 x10^3/uL (0.0-0.2) 01/04/22 04:50 Baso # (Auto) 0.0 X10^3/uL (0.0-0.1) 01/04/22 04:50 Absolute Nucleated RBC 0.1 /100WBC 01/04/22 04:50 Sodium 141 mmol/L (136-145) 01/04/22 04:50 Corrected Sodium TNP 01/04/22 04:50 Potassium 4.0 mmol/L (3.5-5.1) 01/04/22 04:50 Chloride 107 mmol/L (98-107) 01/04/22 04:50 Carbon Dioxide 27.7 mmol/L (21-32) 01/04/22 04:50 BUN 14 mg/dL (7-18) 01/04/22 04:50 Creatinine 1.03 mg/dL (0.55-1.02) H 01/04/22 04:50 Est GFR (MDRD) Af Amer > 60 (>60) 01/04/22 04:50 Est GFR (MDRD) Non-Af 54 (>60) L 01/04/22 04:50 Glucose 98 mg/dL (65-99) 01/04/22 04:50 Calcium 8.8 mg/dL (8.5-10.1) 01/04/22 04:50 Corrected Calcium 9.6 mg/dL (8.5-10.1) 01/04/22 04:50 Magnesium 2.2 mg/dL (1.7-2.9) 01/02/22 04:49 Total Bilirubin 0.40 mg/dL (0.2-1.0) 01/04/22 04:50 AST 19 Units/L (15-37) 01/04/22 04:50 ALT 24 Units/L (12-78) 01/04/22 04:50 Alkaline Phosphatase 121 Units/L (46-116) H 01/04/22 04:50 B-Natriuretic Peptide 145 pg/mL (0-79) H 01/01/22 03:30 Total Protein 5.8 g/dL (6.4-8.2) L 01/04/22 04:50 Albumin 3.0 g/dL (3.4-5.0) L 01/04/22 04:50 Globulin 2.8 g/dL (2.5-4.5) 01/04/22 04:50 Albumin/Globulin Ratio 1.1 Ratio (1.1-2.1) 01/04/22 04:50 Specimen Type Clean catch urine 12/30/21 07:40 Urine Color Yellow (YELLOW) 12/30/21 07:40 Urine Appearance Slightly hazy (CLEAR) 12/30/21 07:40 Urine pH 5.0 (5.0 - 8.0) 12/30/21 07:40 Ur Specific [place] 1.025 (1.000-1.030) 12/30/21 07:40 Urine Protein 1+ (NEGATIVE) 12/30/21 07:40 Urine Glucose (UA) Negative (NEGATIVE) 12/30/21 07:40 Urine Ketones Negative (NEGATIVE) 12/30/21 07:40 Urine Blood 2+ (NEGATIVE) 12/30/21 07:40 Urine Nitrite Positive (NEGATIVE) 12/30/21 07:40 Urine Bilirubin Negative (NEGATIVE) 12/30/21 07:40 Urine Urobilinogen Normal (NORMAL) 12/30/21 07:40 Ur Leukocyte Esterase 1+ (NEGATIVE) 12/30/21 07:40 Urine RBC 5-10 /HPF (0-3) A 12/30/21 07:40 Urine WBC 3-5 /HPF (0-5) 12/30/21 07:40 Ur Squamous Epith Cells Rare /HPF (NEGATIVE) 12/30/21 07:40 Ur Transition Epith Cell Few /HPF (NEGATIVE) 12/30/21 07:40 Amorphous Sediment 1+ /HPF (NEGATIVE) 12/30/21 07:40 Urine Bacteria Trace /HPF (NEGATIVE) 12/30/21 07:40 Hyaline Casts Few /LPF (NEGATIVE) 12/30/21 07:40 Ur Culture Indicated? Yes/culture set up 12/30/21 07:40 SARS-CoV-2 (PCR) Negative (NEGATIVE) 12/29/21 17:45 Plan (1) Intractable pain: Status: Acute Plan: PHYSICAL THERAPY, ROCEPHIN 1G IV DAILY, TORADOL 30MG IV Q8H, HYDROCODONE/ACET 10/325MG PO Q4H PRN, COLACE 100MG PO HS, MILK OF MAGNESIA 15ML PO QID PRN, XARELTO 20MG PO DAILY, ULTRAM 50MG PO Q4H PRN, AND THE POTASSIUM PROTOCOL. (2) Pelvic fracture: Status: Acute Qualifiers: Encounter type: initial encounter Fracture type: closed Pelvic bone location: other part of pelvis Qualified Code(s): S32.89XA - Fracture of other parts of pelvis, initial encounter for closed fracture (3) Compression fracture of lumbar vertebra: Status: Acute Qualifiers: Encounter type: initial encounter Lumbar vertebra fracture level: L2 Qualified Code(s): S32.020A - Wedge compression fracture of second lumbar vertebra, initial encounter for closed fracture (4) UTI (urinary tract infection): Status: Acute Qualifiers: Hematuria presence: with hematuria Urinary tract infection type: acute cystitis Qualified Code(s): N30.01 - Acute cystitis with hematuria (5) GERD (gastroesophageal reflux disease): Status: Chronic Qualifiers: Esophagitis presence: esophagitis presence not specified Qualified Code(s): K21.9 - Gastro-esophageal reflux disease without esophagitis (6) Essential hypertension: Status: Chronic (7) Chronic a-fib: Status: Chronic (8) Hyperthyroidism: Status: Chronic (9) Thoracic aortic aneurysm: Status: Chronic Qualifiers: Presence of rupture: without rupture Qualified Code(s): I71.2 - Thoracic aortic aneurysm, without rupture
[2022-01-04] MEDS: NORCO 10/325 TAB PO PRN ×2 (15:22→20:52)
[2022-01-04] MEDS: COLACE CAP 100 MG PO SCH (20:50)
[2022-01-04] MEDS: FLOMAX PO SCH (20:51)
[2022-01-04] MEDS: LYRICA CAP 75 mg PO SCH (20:51)
[2022-01-04] MEDS: SINGULAIR TAB 10 MG PO SCH (20:51)
[2022-01-04] MEDS: KLONOPIN TAB 0.5 MG PO PRN (20:52)
[2022-01-05 04:51] LABS: BASOPHILS % (AUTO) 0.7 % (0.2-1.0); EOSINOPHILS # (AUTO) 0.1 x10^3/uL (0.0-0.2); EOSINOPHILS % (AUTO) 3.8 % (0.9-2.9); HEMATOCRIT 35.9 % (36.0-47.0); HEMOGLOBIN 12.1 g/dL (12.0-16.0); LYMPHOCYTES # (AUTO) 1.3 X10^3/uL (1.3-2.9); LYMPHOCYTES % (AUTO) 36.1 % (21.0-51.0); MEAN CORPUSCULAR HEMOGLOBIN 30.1 pg (27.0-34.0); MEAN CORPUSCULAR HGB CONC 33.6 g/dL (33.0-35.0); MEAN CORPUSCULAR VOLUME 89.7 fL (80.0-100.0); MONOCYTES # (AUTO) 0.4 x10^3/uL (0.3-0.8); MONOCYTES % (AUTO) 10.3 % (0.0-13.0); NEUTROPHILS # (AUTO) 1.8 x10^3/uL (2.2-4.8); NEUTROPHILS % (AUTO) 49.1 % (42.0-75.0); RED CELL DISTRIBUTION WIDTH 16.3 % (11.6-16.5); WHITE BLOOD COUNT 3.6 X10^3/uL (3.6-10.0)
[2022-01-05 04:55] LABS: ALANINE AMINOTRANSFERASE 26 Units/L (12-78); ALKALINE PHOSPHATASE 122 Units/L (46-116); ASPARTATE AMINO TRANSFERASE 16 Units/L (15-37); BLOOD UREA NITROGEN 15 mg/dL (7-18); CALCIUM 8.8 mg/dL (8.5-10.1); CARBON DIOXIDE 30.4 mmol/L (21-32); CHLORIDE 106 mmol/L (98-107); COR CA(FOR HYPOALB) 9.6 mg/dL (8.5-10.1); CREATININE 1.02 mg/dL (0.55-1.02); SODIUM 141 mmol/L (136-145); TOTAL PROTEIN 5.7 g/dL (6.4-8.2); eGFR NON BLACK RACES 54 (>60)
[2022-01-05] MEDS: CORDARONE TAB 200 MG PO SCH (07:59)
[2022-01-05] MEDS: PREDNISONE TAB 5 MG PO SCH (08:00)
[2022-01-05] MEDS: PROTONIX TAB 40 MG PO SCH (08:00)
[2022-01-05] MEDS: XARELTO PO SCH (08:01)
[2022-01-05] MEDS: SYNTHROID 112 mcg TAB PO SCH (08:01)
[2022-01-05] MEDS: ROCEPHIN VIAL 1 GRAM 1 G in NS 100 ML IV 100 ML IV SCH (08:01)
[2022-01-05] MEDS: SENOKOT PO SCH (08:01)
[2022-01-05 08:53] VITALS: BMI 28.6
[2022-01-05] MEDS ORDERED: NORCO 10/325 TAB PO PRN (09:13)
[2022-01-05] MEDS ORDERED: NS 100 ML IV 100 ML ONE (09:22)
[2022-01-05] MEDS ORDERED: MILK OF MAGNESIA PO PRN (10:27)
[2022-01-05] MEDS: NORCO 10/325 TAB PO SCH ×2 (10:41→14:54)
[2022-01-05] MEDS ORDERED: MIRALAX POWDER (1 DOSE 17 G) PO SCH (11:00)
[2022-01-05] MEDS ORDERED: COLACE CAP 100 MG PO SCH (11:00)
[2022-01-05 12:23] VITALS: BP 118/63
--- NOTE | 2022-01-05 15:10 | MRI ---
HISTORYBACK PAIN, RT LEG PAIN, RECURRENT FALLSSTUDYMRI L SPINE W/O IV CONTRASTCOMPARISONCT 12/29/2021TECHNIQUEMultiplanar multisequence MRI of the lumbar spine was obtained without IV contrast.FINDINGSThe conus terminates at the L1-2 level. Mild anterolisthesis of L4 on L5 is probably from the arthritic changes in the facet joints. There is compression deformity of the inferior endplate of L4 with 15 percent loss of height, similar to prior CT study. There is edema in the superior endplate of L2 with 20 percent loss of height, similar to prior CT. Old central compression deformities are seen of L1 and T12 prior cement procedure at L1.T12 -- L1: Displaced posterior cortex of L1 and mild posterior element hypertrophy cause mild central canal narrowing without contact of the conus. Mild bilateral neural foraminal narrowing is seen.L1 -- L2: Posterior element hypertrophy and posterior osteophytes cause mild thecal sac effacement and moderate neural foraminal narrowing.L2 -- L3: Mild posterior element hypertrophy and posterior osteophytes cause prominent left neural foraminal narrowing without definite nerve root compression. Only mild right neural foraminal narrowing is seen. Mild thecal sac effacement and bilateral lateral recess stenosis is seen.L3 -- L4: Mild posterior element hypertrophy is seen with broad calcified central disc bulge. Mild thecal sac effacement is seen with mild right lateral recess narrowing. Mild bilateral neural foraminal narrowing is seen.L4 -- L5: Moderate posterior element hypertrophy is seen with spondylolisthesis. There is prominent right neural foraminal narrowing with contact and possible compression of the right L4 nerve root. More moderate left neural foraminal narrowing is seen. Mild thecal sac effacement is seen with mild right lateral recess stenosis.L5 -- S1:Posterior osteophytes and facet hypertrophy cause mild left-sided and moderate right-sided neural foraminal narrowing. No thecal sac effacement.IMPRESSIONLikely recent compression deformities of L4 and L2 are similar to prior CT exam.No disc herniations are seen but there is probable broad calcified disc bulge at L3-4 with mild thecal sac effacement.Posterior osteophytes and posterior element hypertrophy at L4-5 may compress the exiting right L4 nerve root.Electronically signed by: Bridger Lozada (Jan 05, 2022 15:08:35)
== END 2022-01-05 15:00 | disposition swing bed (61) | DRG 690 ==
LOC: ER 11:56 → MED/SURG 11:56
PROVIDERS: ADMIT Internal Medicine; ATTEND Internal Medicine

== ENCOUNTER 2022-01-05 15:10 | Inpatient (IN) ==
[2022-01-05] MEDS ORDERED: ULTRAM PO PRN (15:30)
[2022-01-05] MEDS ORDERED: PYRIDIUM PO PRN (15:30)
[2022-01-05] MEDS ORDERED: POTASSIUM CHLORIDE LIQ 20 MEQ UDC PO PRN (15:30)
[2022-01-05] MEDS ORDERED: POTASSIUM CHL 60 MEQ/NS 0.45% 500 ML IV PRN (15:30)
[2022-01-05] MEDS ORDERED: K-RIDER 10 MEQ/NS 100 ML 10 MEQ/100 ML BAG IV PRN (15:30)
[2022-01-05] MEDS ORDERED: MILK OF MAGNESIA PO PRN (15:30)
[2022-01-05] MEDS ORDERED: KLOR-CON PO PRN (15:30)
[2022-01-05] MEDS ORDERED: POTASSIUM CHL 40 MEQ/NS 0.45% 500 ML IV PRN (15:30)
[2022-01-05] MEDS ORDERED: MICRO K EXTEN CAP 10 MEQ PO PRN (15:30)
--- NOTE | 2022-01-05 19:47 | PT/OTEVAL ---
PT/OT OBJECTIVES - HISTORY Prescription: PT Consult Diagnosis: Pelvic Fracture, Lumbar Compression Fracture, UTI Precautions: Fall Risk, Spinal Precautions, Pain PMH: Asthma, GERD, HTN, AFib, Ascending Aortic Aneursym, Hx Lumbar Compression Fractures (T12 & L1), Cardiac Stents, Knee Replacements (R Total, L Partial), Cholecystectomy, Hysterectomy Prior Level of Function: Assistance Required Other: Pt was residing in single story home with her . They report that over the last 3-4 months pt has been declining and requiring physical assistance due to ongoing back pain. They report that pt has seen several specialists and received multiple injections with most recent being on 12/23 in [place] and while returning home that day, pt had a fall resulting in pelvic fracture & lumbar com pression fracture. Pt was primarily transferring from bed to bedside commode over last 2-3 weeks due to significant pain. Prior to that, pt was able to ambulate short distances within home with FWW. present & assisting as needed. - COGNITION Mental Status: Alert, Oriented, Name, Date, Place, Purpose Communication Status: Verbal Ability to Follow Directions: 3 Step Memory Loss: None - PAIN Right Hip Pain Scale: Severe (7-8) Comments: 4/10 in supine/sidelying, 8/10 with any active movement. - BED MOBILITY Rolling: Supervision Scooting: Supervision - TRANSFERS Supine to Sit: Supervision Sit to Stand: Minimal Sit or Stand Pivot: Minimal - BALANCE Static Sitting: Good Standing: Fair Dynamic Sitting: Good Standing: Poor - NEUROMOTOR/SENSATION [place]. Lower Ext Sensation: WFL Coordination: WFL Comments: Sensation intact to light touch, occasional complaints of shooting pains down RLE to ankle. - ROM Left LE ROM: WFL Muscle Tone: WFL Right LE ROM: WFL Muscle Tone: WFL - STRENGTH Bilateral UE Strength Number: 3 Left LE Strength Number: 4 Other comment: 4-/5 Right LE Strength Number: 3 Other comment: 3-/5 to hip and 3+/5 to knee and ankle - GAIT Pt. ambulates how many feet?: 50 Amount of assistance required: Minimal Amount of Assistance Required: Minimal Type of Assistive Device: Rolling Walker PT/OT ASSESSMENT - PT Problem List: Decreased Bed Mobility, Decreased Transfers, Decreased Gait, Decreased Balance, Decreased LE Strength - PT GOALS Short Term Goals Days: 10 Mobility: Pt will perform bed mobility tasks with mod I Transfers: Pt will perform functional transfers with CGA Gait: Pt will ambulate 100ft with FWW with CGA Balance: Pt will increase static standing balance to fair+/good- Others: Pt will report highest level of pain on VAS to low back/RLE to 8/10 [employer] Goals Days: 20 Transfers: Pt will perform functional transfers with mod I Gait: Pt will ambulate 200ft with FWW with supervision Balance: Pt will increase static standing balance to fair+ ROM/Strength: Pt will increase LLE strength to 5/5 and RLE to 4 to 4+/5 Others: Pt will report highest level pf pain on VAS to low back/RLE to 5/10 - PATIENT GOALS Patient/Family Goals: "Move around better and have less pain" Goals Discussed with Patient/Family: Yes (Pt and ) Rehabilitation Potential: Good to meet state goals Justification for Potential: Facilitate highest level of function & safe discharge planning Weakness and Barriers: Pain If yes, explain: Hx of chronic back pain with multiple treatments previously saught - PLAN Suggested Treatment Plan: Bed Mobility Training, Therapeutic Activity, Gait Training, Neuro Re-education, Therapeutic Ex with HEP, Patient Education, Family Education - FREQUENCY AND DURATION PT: 5x per week x 20 days Expected Continuation of Care at Discharge: Home Health Anticipated Equipment Needs: TBD pending progress
[2022-01-05] MEDS: NORCO 10/325 TAB PO SCH (20:39)
[2022-01-05] MEDS: FLOMAX PO SCH (20:39)
[2022-01-05] MEDS: COLACE CAP 100 MG PO SCH (20:40)
[2022-01-05] MEDS: SINGULAIR TAB 10 MG PO SCH (20:40)
[2022-01-05] MEDS: SENOKOT PO SCH (20:40)
[2022-01-05] MEDS: PROTONIX TAB 40 MG PO SCH (20:41)
[2022-01-05] MEDS: LYRICA CAP 75 mg PO SCH (20:41)
[2022-01-05] MEDS: KLONOPIN TAB 0.5 MG PO PRN (22:13)
[2022-01-06] MEDS: COLACE CAP 100 MG PO SCH ×2 (08:34→20:49)
[2022-01-06] MEDS: CORDARONE TAB 200 MG PO SCH (08:34)
[2022-01-06] MEDS: PROTONIX TAB 40 MG PO SCH ×2 (08:35→20:49)
[2022-01-06] MEDS: SENOKOT PO SCH ×2 (08:35→20:49)
[2022-01-06] MEDS: MIRALAX POWDER (1 DOSE 17 G) PO SCH (08:35)
[2022-01-06] MEDS: PREDNISONE TAB 5 MG PO SCH (08:35)
[2022-01-06] MEDS: SYNTHROID 112 mcg TAB PO SCH (08:36)
[2022-01-06] MEDS: XARELTO PO SCH (08:36)
--- NOTE | 2022-01-06 09:18 | DR.UPDATE ---
H&P Update History and Physical Update: History and Physical reviewed and patient examined. Changes noted: Yes with the following: IS INPATIENT STATUS. SHE WAS CHANGED TO A SWINGBED FOR PHYSICAL THERAPY AND REHABILITATION DUE TO PELVIS FX AND LUMBAR COMPRESSION FX. WE WILL RESUME HER HOME MEDICATIONS WELL [place] 10/325MG PO TID, MILK OF MAGNESIA 15ML PO QID PRN, COLACE 100MG BID, MIRALAX 17G DAILY, AND THE POTASSIUM PROTOCOL. PHYSICAL THERAPY WILL WORK WITH HER DAILY WHILE HE IS IN THE HOSPITAL. OTHERWISE, WE WILL MONITOR PATIENT AND LABS AND MAKE CHANGES APPROPRIATE. TIME SPENT ON CLINICAL ASSESSMENT, REVIWING LABS AND IMAGING, DECISION MAKING, AND DOCUMENTATION GREATER THAN 45 MINUTES.
[2022-01-06] MEDS: NORCO 10/325 TAB PO SCH ×3 (09:53→20:48)
[2022-01-06] MEDS: KLONOPIN TAB 0.5 MG PO PRN ×2 (10:00→21:35)
--- NOTE | 2022-01-06 15:51 | PT/OTEVAL ---
PT/OT OBJECTIVES - HISTORY Prescription: OT consult Diagnosis: pelvic fracture Precautions: Fall risk Prior Level of Function: Assistance Required Other: Patient reports she lives with her and has required increasing assistance with all self-care the past few weeks. She fell coming out of a doctor's office which resulted in a pelvic fracture. Patient reports she is frequently in pain when she moves or sits on her R hip. - COGNITION Mental Status: Alert, Oriented, Name, Date, Place, Purpose Communication Status: Verbal Ability to Follow Directions: 2 Step Memory Loss: None - PAIN Right Hip Pain Scale: Severe (7-8) Comments: 410 in supine/sidelying, 8/10 with any active movement. - BED MOBILITY Rolling: Minimal - TRANSFERS Supine to Sit: Minimal Sit to Stand: Minimal Sit or Stand Pivot: Minimal - ADL'S Feeding: Independent, Setup Grooming: Independent, Setup Upper Body ADL: Setup, Minimum Lower Body ADL: Setup, Moderate Toileting: Minimum - BALANCE Static Sitting: Good Standing: Fair Dynamic Sitting: Fair Standing: Poor - NEUROMOTOR/SENSATION [place]. Lower Ext Sensation: WFL Coordination: WFL Comments: Sensation intact to light touch, occasional complaints of shooting pains down RLE to ankle. - HAND DOMINANCE Extremity Function: Hand Dominance: Right - ROM Bilateral UE ROM: WFL Muscle Tone: WFL - STRENGTH Bilateral UE Strength Number: 3 Left LE Strength Number: 4 Other comment: 4-/5 Right LE Strength Number: 3 Other comment: 3-/5 to hip and 3+/5 to knee and ankle PT/OT ASSESSMENT - OT Problem List: Decreased Mobility ADL's, Decreased Dressing, Decreased Bathing, Decreased UE Strength, Other Other, comment: Decreased functional activity tolerance for BADLs - PT GOALS Short Term Goals Days: 10 Mobility: Pt will perform bed mobility tasks with mod I Transfers: Pt will perform functional transfers with CGA Gait: Pt will ambulate 100ft with FWW with CGA Balance: Pt will increase static standing balance to fair+/good- Others: Pt will report highest level of pain on VAS to low back/RLE to 8/10 Custodial Goals Days: 20 Transfers: Pt will perform functional transfers with mod I Gait: Pt will ambulate 200ft with FWW with supervision Balance: Pt will increase static standing balance to fair+ ROM/Strength: Pt will increase LLE strength to 5/5 and RLE to 4 to 4+/5 Others: Pt will report highest level pf pain on VAS to low back/RLE to 5/10 - OT GOALS Short Term Goals Days: 10 Mobility for ADL's: Will demonstrate safe functional transfer w/ FWW w/ TouchA. Dressing: Will improve UB and LB dressing to [place]. Bathing: Will improve UB and LB bathing to [place]. Upper Ext. Strength/Use: Will improve BUE strength to 3+/5 for BADLs. Other: Will demonstrate F.A.T. to >10 min before requiring rest break. Custodial Goals Days: 20 Mobility for ADL's: Will demonstrate safe functional transfer w/ FWW to Mod. Ind. Dressing: Will improve UB and LB dressing to Mod Ind. Bathing: Will improve UB and LB bathing to Supv. Upper Ext. Strength/Use: Will improve BUE strength to 4-/5 for BADLs. Other: Will demonstrate F.A.T. to >15 min before requiring rest break. - PATIENT GOALS Patient/Family Goals: "To get stronger and not have any of this pain" Goals Discussed with Patient/Family: Yes Rehabilitation Potential: Good Justification for Potential: Higher PLOF, supportive caregivers Weakness and Barriers: Pain - PLAN Suggested Treatment Plan: Therapeutic Activity, Self Care Training, Therapeutic Ex with HEP, Patient Education, Family Education - FREQUENCY AND DURATION OT: 5x/wk x 20 days Expected Continuation of Care at Discharge: Home, Home Health
[2022-01-06] MEDS: FLOMAX PO SCH (20:48)
[2022-01-06] MEDS: SINGULAIR TAB 10 MG PO SCH (20:49)
[2022-01-06] MEDS: LYRICA CAP 75 mg PO SCH (20:49)
[2022-01-07] MEDS: COLACE CAP 100 MG PO SCH ×2 (08:40→20:53)
[2022-01-07] MEDS: CORDARONE TAB 200 MG PO SCH (08:40)
[2022-01-07] MEDS: NORCO 10/325 TAB PO SCH ×3 (08:40→20:53)
[2022-01-07] MEDS: PROTONIX TAB 40 MG PO SCH ×2 (08:40→20:54)
[2022-01-07] MEDS: SENOKOT PO SCH ×2 (08:40→20:54)
[2022-01-07] MEDS: XARELTO PO SCH (08:40)
[2022-01-07] MEDS: MIRALAX POWDER (1 DOSE 17 G) PO SCH (08:40)
[2022-01-07] MEDS: SYNTHROID 112 mcg TAB PO SCH (08:40)
[2022-01-07] MEDS: PREDNISONE TAB 5 MG PO SCH (08:40)
[2022-01-07] MEDS: FLOMAX PO SCH (20:53)
[2022-01-07] MEDS: SINGULAIR TAB 10 MG PO SCH (20:54)
[2022-01-07] MEDS: LYRICA CAP 75 mg PO SCH (20:54)
[2022-01-07] MEDS: KLONOPIN TAB 0.5 MG PO PRN (20:55)
[2022-01-08 05:57] LABS: BASOPHILS % (AUTO) 0.8 % (0.2-1.0); EOSINOPHILS # (AUTO) 0.1 x10^3/uL (0.0-0.2); EOSINOPHILS % (AUTO) 3.1 % (0.9-2.9); HEMATOCRIT 36.9 % (36.0-47.0); HEMOGLOBIN 12.5 g/dL (12.0-16.0); LYMPHOCYTES # (AUTO) 1.4 X10^3/uL (1.3-2.9); LYMPHOCYTES % (AUTO) 41.2 % (21.0-51.0); MEAN CORPUSCULAR HEMOGLOBIN 30.6 pg (27.0-34.0); MEAN CORPUSCULAR HGB CONC 33.7 g/dL (33.0-35.0); MEAN CORPUSCULAR VOLUME 90.7 fL (80.0-100.0); MEAN PLATELET VOLUME 7.8 fL (7.4-11.0); MONOCYTES # (AUTO) 0.4 x10^3/uL (0.3-0.8); MONOCYTES % (AUTO) 11.5 % (0.0-13.0); NEUTROPHILS # (AUTO) 1.4 x10^3/uL (2.2-4.8); NEUTROPHILS % (AUTO) 43.4 % (42.0-75.0); RED BLOOD COUNT 4.07 X10^6/uL (3.5-5.4); RED CELL DISTRIBUTION WIDTH 16.5 % (11.6-16.5); WHITE BLOOD COUNT 3.3 X10^3/uL (3.6-10.0)
[2022-01-08 06:06] LABS: ALANINE AMINOTRANSFERASE 27 Units/L (12-78); ALBUMIN 2.8 g/dL (3.4-5.0); ALKALINE PHOSPHATASE 132 Units/L (46-116); ASPARTATE AMINO TRANSFERASE 21 Units/L (15-37); BLOOD UREA NITROGEN 12 mg/dL (7-18); CALCIUM 8.6 mg/dL (8.5-10.1); CARBON DIOXIDE 31.7 mmol/L (21-32); CHLORIDE 108 mmol/L (98-107); COR CA(FOR HYPOALB) 9.6 mg/dL (8.5-10.1); CREATININE 0.98 mg/dL (0.55-1.02); SODIUM 142 mmol/L (136-145); TOTAL PROTEIN 5.6 g/dL (6.4-8.2); eGFR NON BLACK RACES 57 (>60)
[2022-01-08] MEDS: CORDARONE TAB 200 MG PO SCH (08:25)
[2022-01-08] MEDS: NORCO 10/325 TAB PO SCH ×4 (08:26→21:02)
[2022-01-08] MEDS: SENOKOT PO SCH ×2 (08:40→21:03)
[2022-01-08] MEDS: COLACE CAP 100 MG PO SCH ×2 (08:41→21:03)
[2022-01-08] MEDS: XARELTO PO SCH (08:41)
[2022-01-08] MEDS: SYNTHROID 112 mcg TAB PO SCH (08:42)
[2022-01-08] MEDS: PREDNISONE TAB 5 MG PO SCH (08:42)
[2022-01-08] MEDS: PROTONIX TAB 40 MG PO SCH ×2 (08:46→21:03)
[2022-01-08] MEDS: MIRALAX POWDER (1 DOSE 17 G) PO SCH (08:46)
[2022-01-08] MEDS: LYRICA CAP 75 mg PO SCH (21:03)
[2022-01-08] MEDS: FLOMAX PO SCH (21:03)
[2022-01-08] MEDS: SINGULAIR TAB 10 MG PO SCH (21:04)
[2022-01-08] MEDS: KLONOPIN TAB 0.5 MG PO PRN (21:05)
[2022-01-09] MEDS: MIRALAX POWDER (1 DOSE 17 G) PO SCH (08:32)
[2022-01-09] MEDS: COLACE CAP 100 MG PO SCH ×2 (08:32→20:47)
[2022-01-09] MEDS: PREDNISONE TAB 5 MG PO SCH (08:33)
[2022-01-09] MEDS: SYNTHROID 112 mcg TAB PO SCH (08:33)
[2022-01-09] MEDS: NORCO 10/325 TAB PO SCH ×3 (08:33→20:46)
[2022-01-09] MEDS: PROTONIX TAB 40 MG PO SCH ×2 (08:34→20:48)
[2022-01-09] MEDS: SENOKOT PO SCH ×2 (08:34→20:48)
[2022-01-09] MEDS: K-DUR TAB 20 MEQ PO PRN ×2 (08:35→11:47)
[2022-01-09] MEDS: CORDARONE TAB 200 MG PO SCH (08:41)
[2022-01-09] MEDS: XARELTO PO SCH (09:30)
[2022-01-09] MEDS: LYRICA CAP 75 mg PO SCH (20:48)
[2022-01-09] MEDS: FLOMAX PO SCH (20:48)
[2022-01-09] MEDS: SINGULAIR TAB 10 MG PO SCH (20:48)
[2022-01-09] MEDS: KLONOPIN TAB 0.5 MG PO PRN (20:49)
[2022-01-10] MEDS: XARELTO PO SCH (08:15)
[2022-01-10] MEDS: COLACE CAP 100 MG PO SCH ×2 (08:15→21:14)
[2022-01-10] MEDS: PROTONIX TAB 40 MG PO SCH ×2 (08:15→21:15)
[2022-01-10] MEDS: SYNTHROID 112 mcg TAB PO SCH (08:15)
[2022-01-10] MEDS: PREDNISONE TAB 5 MG PO SCH (08:15)
[2022-01-10] MEDS: SENOKOT PO SCH ×2 (08:16→21:15)
[2022-01-10] MEDS: NORCO 10/325 TAB PO SCH ×3 (08:18→21:13)
[2022-01-10] MEDS: CORDARONE TAB 200 MG PO SCH (08:35)
[2022-01-10] MEDS: MIRALAX POWDER (1 DOSE 17 G) PO SCH (08:37)
[2022-01-10] MEDS: LYRICA CAP 75 mg PO SCH (21:14)
[2022-01-10] MEDS: FLOMAX PO SCH (21:14)
[2022-01-10] MEDS: SINGULAIR TAB 10 MG PO SCH (21:15)
[2022-01-10] MEDS: KLONOPIN TAB 0.5 MG PO PRN (21:16)
[2022-01-11 04:51] LABS: HEMOGLOBIN 12.3 g/dL (12.0-16.0); MONOCYTES # (AUTO) 0.3 x10^3/uL (0.3-0.8)
[2022-01-11 04:58] LABS: ALANINE AMINOTRANSFERASE 30 Units/L (12-78); ALBUMIN 2.8 g/dL (3.4-5.0); ALKALINE PHOSPHATASE 130 Units/L (46-116); ASPARTATE AMINO TRANSFERASE 22 Units/L (15-37); BASOPHILS % (AUTO) 0.7 % (0.2-1.0); BLOOD UREA NITROGEN 11 mg/dL (7-18); CALCIUM 8.7 mg/dL (8.5-10.1); CARBON DIOXIDE 28.4 mmol/L (21-32); CHLORIDE 107 mmol/L (98-107); COR CA(FOR HYPOALB) 9.7 mg/dL (8.5-10.1); CREATININE 0.94 mg/dL (0.55-1.02); EOSINOPHILS # (AUTO) 0.1 x10^3/uL (0.0-0.2); EOSINOPHILS % (AUTO) 3.7 % (0.9-2.9); LYMPHOCYTES # (AUTO) 1.5 X10^3/uL (1.3-2.9); LYMPHOCYTES % (AUTO) 47.9 % (21.0-51.0); MEAN CORPUSCULAR HEMOGLOBIN 30.9 pg (27.0-34.0); MEAN CORPUSCULAR HGB CONC 34.2 g/dL (33.0-35.0); MEAN CORPUSCULAR VOLUME 90.5 fL (80.0-100.0); MEAN PLATELET VOLUME 8.2 fL (7.4-11.0); MONOCYTES % (AUTO) 10.6 % (0.0-13.0); NEUTROPHILS # (AUTO) 1.2 x10^3/uL (2.2-4.8); NEUTROPHILS % (AUTO) 37.1 % (42.0-75.0); RED BLOOD COUNT 3.99 X10^6/uL (3.5-5.4); RED CELL DISTRIBUTION WIDTH 16.6 % (11.6-16.5); SODIUM 141 mmol/L (136-145); TOTAL PROTEIN 5.5 g/dL (6.4-8.2); WHITE BLOOD COUNT 3.2 X10^3/uL (3.6-10.0); eGFR NON BLACK RACES 60 (>60)
[2022-01-11] MEDS: NORCO 10/325 TAB PO SCH ×3 (08:02→21:32)
[2022-01-11] MEDS: SYNTHROID 112 mcg TAB PO SCH (08:03)
[2022-01-11] MEDS: PROTONIX TAB 40 MG PO SCH ×2 (08:03→21:35)
[2022-01-11] MEDS: SENOKOT PO SCH ×2 (08:03→21:35)
[2022-01-11] MEDS: PREDNISONE TAB 5 MG PO SCH (08:03)
[2022-01-11] MEDS: XARELTO PO SCH (08:03)
[2022-01-11] MEDS: COLACE CAP 100 MG PO SCH ×2 (08:03→21:34)
[2022-01-11] MEDS: MIRALAX POWDER (1 DOSE 17 G) PO SCH (08:04)
[2022-01-11] MEDS: CORDARONE TAB 200 MG PO SCH (08:06)
[2022-01-11] MEDS: KLONOPIN TAB 0.5 MG PO PRN (20:20)
[2022-01-11] MEDS: FLOMAX PO SCH (21:34)
[2022-01-11] MEDS: LYRICA CAP 75 mg PO SCH (21:34)
[2022-01-11] MEDS: SINGULAIR TAB 10 MG PO SCH (21:35)
[2022-01-12] MEDS: NORCO 10/325 TAB PO SCH ×3 (08:46→20:40)
[2022-01-12] MEDS: COLACE CAP 100 MG PO SCH ×2 (08:46→20:39)
[2022-01-12] MEDS: MIRALAX POWDER (1 DOSE 17 G) PO SCH (08:47)
[2022-01-12] MEDS: CORDARONE TAB 200 MG PO SCH (08:47)
[2022-01-12] MEDS: PREDNISONE TAB 5 MG PO SCH (08:48)
[2022-01-12] MEDS: SYNTHROID 112 mcg TAB PO SCH (08:48)
[2022-01-12] MEDS: SENOKOT PO SCH ×2 (08:48→20:40)
[2022-01-12] MEDS: PROTONIX TAB 40 MG PO SCH ×2 (08:48→20:41)
[2022-01-12] MEDS: XARELTO PO SCH (08:49)
--- NOTE | 2022-01-12 09:13 | PCM.PROG ---
Progress Note - Progress Note for Day of Date of Exam: 01/08/22 - Subjective Subjective: IS CURRENTLY INPATIENT, SWINGBED STATUS FOR PHYSICAL THERAPY AND REHAB PAIN DUE TO PELVIC FRACTURE AND COMPRESSION FRACUTURE OF L2 AN L4. RECENT MRI ALSO REVEALE POSTERIOR OSTEOPHYTES AND POSTERIOR ELEMENT HYPERTROPHY AT L4-5 MAY COMPRESS THE EXITING RIGHT 64 NERVE ROOT. TODAY, SHE IS ALERT AND ORIENTED, LYING IN BED ON MORNING ROUNDS. SHE CONTINUES WITH COMPLAINTS OF MODERATE TO SEVERE PAIN WITH MOVEMENT AND ACTIVITY, BUT SHE DOES REPORT SOME IMPROVEMENT IN SYMPTOMS. SHE SEEMS TO BE MOVING AROUND BETTER COMPARED TO WHEN WE LAST SAW HER. ON EXAMINATION, HEART IS REGULAR IN RATE AND RHYTYM. BILATERAL LUNGS NOTED WITH DIMINISHED LUNG SOUNDS THROUGHOUT. ABDOMEN IS ROUND, SOFT, AND NON-TENDER WITH NORMAL BOWEL SOUNDS NOTED IN ALL QUADRANTS. TENDERNESS NOTED TO LUMBAR SPINE. NO UPPER OR LOWER EXTREMITY EDEMA NOTED. HER VITALS THIS MORNING ARE: 98.1-62-18-97%-123/58. LABS WERE OBTAINED. WBC 3.3, RBC 4.07, HGB 12.5, HCT 36.9, PLT COUNT 123, SODIUM 142, POTASSIUM 3.8, CHLORIDE 108, BUN 12, CREATININE 0.98, GLUCOSE 91, CALCIUM 8.6, MAGNESIUM 2.1, ALK PHOS 132, TOTAL PROTEIN 5.6, ALBUMIN 2.8. SHE IS CURRENTLY RECEIVING HYDROCODONE/ACET 10/325MG PO Q4H PRN, COLACE 100MG PO BID, AMIODARONE 200MG PO DAILY, CLONAZEPAM 0.5MG PO BID PRN, SYNTHROID 112MCG PO DAILY, MILK OF MAGNESIA 15ML PO QID PRN, SINGULAIR 10MG PO HS, PROTONIX 40MG PO BID, PYRIDIUM 200MG PO TID PRN, MIRALAX 17G PO DAILY, PREDNISONE 5MG PO DAILY, LYRICA 75 MG PO HS, XARELTO 20MG PO DAILY, SENOKOT 1MG PO BID, FLOMAX 0.4MG PO HS, ULTRAM 50MG PO Q4H PRN, AND THE POTASSIUM PROTOCOL. WE WILL CONTINUE WITH CURRENT PLAN OF CARE TODAY. PHYSICAL THERAPY HAS BEEN WORKING WITH PATIENT DAILY. SHE HAS BEEN COOPERATIVE WITH THERAPY. OTHERWISE, WE WILL FOLLOW-UP WITH AM LABS AND CONTINUE TO MONITOR. TIME SPENT ON CLINICAL ASSESSMENT, REVIEWING LABS AND IMAGING, DECISION MAKING, AND DOCUMENTATION GREATER THAN 45 MINUTES. - Past Medical Family Social History Past Med/Fam/Surg Hx: No changes since H&P Allergies: Allergies albuterol Allergy (Verified 02/27/21 10:00) caffeine Allergy (Verified 02/27/21 10:00) epinephrine Allergy (Verified 02/27/21 10:00) phenobarbital Allergy (Verified 02/27/21 10:00) - Review of Systems ROS: No change since H&P - Vital Signs and I&O's Vital Signs: Temperature 97.9 F Pulse Rate [Radial] 68 Pulse Rate 72 Respiratory Rate 18 Blood Pressure [Right Arm] 123/63 O2 Sat by Pulse Oximetry 94 Intake and Output: Intake & Output 01/09/22 01/10/22 01/11/22 01/12/22 11:59 11:59 11:59 11:59 Intake Total 620 / 620 720 / 720 800 / 800 1400 / 1400 Balance 620 / 620 720 / 720 800 / 800 1400 / 1400 - Physical Exam Oriented: Normal Eyes: Normal Ear: Normal Nose: Normal Throat: Normal Respiratory: Generalized, Diminished Cardiovascular: Normal : Normal Auscultation: Bowel Sounds: Normal Palpation: Normal Tenderness: Normal Skin: Normal Musculoskeletal: Back:Lumbar, Pelvis, Tender Psychiatric: Normal Mood Description: Calm Affect: Normal Speech Pattern: Clear, Appropriate - Laboratory and Diagnostics Result Diagrams: 01/11/22 03:30 01/11/22 03:30 Labs: Laboratory WBC 3.2 X10^3/uL (3.6-10.0) L 01/11/22 03:30 RBC 3.99 X10^6/uL (3.5-5.4) 01/11/22 03:30 Hgb 12.3 g/dL (12.0-16.0) 01/11/22 03:30 Hct 36.0 % (36.0-47.0) 01/11/22 03:30 MCV 90.5 fL (80.0-100.0) 01/11/22 03:30 MCH 30.9 pg (27.0-34.0) 01/11/22 03:30 MCHC 34.2 g/dL (33.0-35.0) 01/11/22 03:30 RDW 16.6 % (11.6-16.5) H 01/11/22 03:30 Plt Count 130 X10^3/uL (150.0-450.0) L 01/11/22 03:30 MPV 8.2 fL (7.4-11.0) 01/11/22 03:30 Neut % (Auto) 37.1 % (42.0-75.0) L 01/11/22 03:30 Lymph % (Auto) 47.9 % (21.0-51.0) 01/11/22 03:30 Pierce % (Auto) 10.6 % (0.0-13.0) 01/11/22 03:30 Eos % (Auto) 3.7 % (0.9-2.9) H 01/11/22 03:30 Baso % (Auto) 0.7 % (0.2-1.0) 01/11/22 03:30 Neut # (Auto) 1.2 x10^3/uL (2.2-4.8) L 01/11/22 03:30 Lymph # (Auto) 1.5 X10^3/uL (1.3-2.9) 01/11/22 03:30 Pierce # (Auto) 0.3 x10^3/uL (0.3-0.8) 01/11/22 03:30 Eos # (Auto) 0.1 x10^3/uL (0.0-0.2) 01/11/22 03:30 Baso # (Auto) 0.0 X10^3/uL (0.0-0.1) 01/11/22 03:30 Absolute Nucleated RBC 0.2 /100WBC 01/11/22 03:30 Sodium 141 mmol/L (136-145) 01/11/22 03:30 Corrected Sodium TNP 01/11/22 03:30 Potassium 3.7 mmol/L (3.5-5.1) 01/11/22 03:30 Chloride 107 mmol/L (98-107) 01/11/22 03:30 Carbon Dioxide 28.4 mmol/L (21-32) 01/11/22 03:30 BUN 11 mg/dL (7-18) 01/11/22 03:30 Creatinine 0.94 mg/dL (0.55-1.02) 01/11/22 03:30 Est GFR (MDRD) Af Amer > 60 (>60) 01/11/22 03:30 Est GFR (MDRD) Non-Af 60 (>60) 01/11/22 03:30 Glucose 89 mg/dL (65-99) 01/11/22 03:30 Calcium 8.7 mg/dL (8.5-10.1) 01/11/22 03:30 Corrected Calcium 9.7 mg/dL (8.5-10.1) 01/11/22 03:30 Magnesium 2.1 mg/dL (1.7-2.9) 01/09/22 08:03 Total Bilirubin 0.50 mg/dL (0.2-1.0) 01/11/22 03:30 AST 22 Units/L (15-37) 01/11/22 03:30 ALT 30 Units/L (12-78) 01/11/22 03:30 Alkaline Phosphatase 130 Units/L (46-116) H 01/11/22 03:30 Total Protein 5.5 g/dL (6.4-8.2) L 01/11/22 03:30 Albumin 2.8 g/dL (3.4-5.0) L 01/11/22 03:30 Globulin 2.7 g/dL (2.5-4.5) 01/11/22 03:30 Albumin/Globulin Ratio 1.0 Ratio (1.1-2.1) L 01/11/22 03:30 - Plan (1) Compression fracture of lumbar vertebra Status: Acute Qualifiers: Lumbar vertebra fracture level: L2 Fracture healing: with routine healing (2) Pelvic fracture Status: Acute Qualifiers: Encounter type: initial encounter Pelvic bone location: unspecified part of pelvis Fracture type: closed Fracture alignment: nondisplaced Qualified Code(s): S32.9XXA - Fracture of unspecified parts of lumbosacral spine and pelvis, initial encounter for closed fracture (3) Intractable pain Status: Acute (4) Rheumatoid arthritis Status: Acute Qualifiers: Rheumatoid arthritis location: multiple sites Rheumatoid factor presence: unspecified presence Qualified Code(s): M06.9 - Rheumatoid arthritis, unspecified (5) Chronic a-fib Status: Chronic (6) Hypothyroidism Status: Chronic Qualifiers: Hypothyroidism type: acquired Qualified Code(s): E03.9 - Hypothyroidism, unspecified (7) GERD (gastroesophageal reflux disease) Status: Chronic Qualifiers: Esophagitis presence: esophagitis presence not specified
[2022-01-12] MEDS: LYRICA CAP 75 mg PO SCH (20:39)
[2022-01-12] MEDS: FLOMAX PO SCH (20:40)
[2022-01-12] MEDS: KLONOPIN TAB 0.5 MG PO PRN (20:41)
[2022-01-12] MEDS: SINGULAIR TAB 10 MG PO SCH (20:42)
[2022-01-13] MEDS: NORCO 10/325 TAB PO SCH ×3 (08:09→20:59)
[2022-01-13] MEDS: COLACE CAP 100 MG PO SCH ×2 (08:10→21:00)
[2022-01-13] MEDS: MIRALAX POWDER (1 DOSE 17 G) PO SCH (08:10)
[2022-01-13] MEDS: PROTONIX TAB 40 MG PO SCH ×2 (08:11→21:00)
[2022-01-13] MEDS: PREDNISONE TAB 5 MG PO SCH (08:11)
[2022-01-13] MEDS: SYNTHROID 112 mcg TAB PO SCH (08:11)
[2022-01-13] MEDS: SENOKOT PO SCH ×2 (08:11→21:00)
[2022-01-13] MEDS: XARELTO PO SCH (08:12)
[2022-01-13] MEDS: CORDARONE TAB 200 MG PO SCH (08:15)
[2022-01-13 10:36] VITALS: BMI 26.6
[2022-01-13] MEDS: SINGULAIR TAB 10 MG PO SCH (21:00)
[2022-01-13] MEDS: FLOMAX PO SCH (21:01)
[2022-01-13] MEDS: KLONOPIN TAB 0.5 MG PO PRN (21:01)
[2022-01-13] MEDS: LYRICA CAP 75 mg PO SCH (21:01)
[2022-01-14 05:40] LABS: BASOPHILS % (AUTO) 0.9 % (0.2-1.0); EOSINOPHILS # (AUTO) 0.1 x10^3/uL (0.0-0.2); EOSINOPHILS % (AUTO) 2.9 % (0.9-2.9); HEMATOCRIT 35.5 % (36.0-47.0); HEMOGLOBIN 11.9 g/dL (12.0-16.0); LYMPHOCYTES # (AUTO) 1.8 X10^3/uL (1.3-2.9); LYMPHOCYTES % (AUTO) 47.5 % (21.0-51.0); MEAN CORPUSCULAR HEMOGLOBIN 30.3 pg (27.0-34.0); MEAN CORPUSCULAR HGB CONC 33.7 g/dL (33.0-35.0); MEAN CORPUSCULAR VOLUME 90.1 fL (80.0-100.0); MEAN PLATELET VOLUME 8.1 fL (7.4-11.0); MONOCYTES # (AUTO) 0.5 x10^3/uL (0.3-0.8); MONOCYTES % (AUTO) 14.1 % (0.0-13.0); NEUTROPHILS # (AUTO) 1.3 x10^3/uL (2.2-4.8); NEUTROPHILS % (AUTO) 34.6 % (42.0-75.0); RED BLOOD COUNT 3.94 X10^6/uL (3.5-5.4); RED CELL DISTRIBUTION WIDTH 16.3 % (11.6-16.5); WHITE BLOOD COUNT 3.7 X10^3/uL (3.6-10.0)
[2022-01-14 05:53] LABS: ALANINE AMINOTRANSFERASE 28 Units/L (12-78); ALBUMIN 2.8 g/dL (3.4-5.0); ALKALINE PHOSPHATASE 120 Units/L (46-116); ASPARTATE AMINO TRANSFERASE 21 Units/L (15-37); BLOOD UREA NITROGEN 9 mg/dL (7-18); CARBON DIOXIDE 30.1 mmol/L (21-32); CHLORIDE 107 mmol/L (98-107); CREATININE 0.96 mg/dL (0.55-1.02); SODIUM 142 mmol/L (136-145); TOTAL PROTEIN 5.6 g/dL (6.4-8.2); eGFR NON BLACK RACES 58 (>60)
[2022-01-14] MEDS: COLACE CAP 100 MG PO SCH ×2 (09:07→21:13)
[2022-01-14] MEDS: SENOKOT PO SCH ×2 (09:07→21:59)
[2022-01-14] MEDS: PROTONIX TAB 40 MG PO SCH ×2 (09:07→21:59)
[2022-01-14] MEDS: SYNTHROID 112 mcg TAB PO SCH (09:07)
[2022-01-14] MEDS: MIRALAX POWDER (1 DOSE 17 G) PO SCH (09:08)
[2022-01-14] MEDS: NORCO 10/325 TAB PO SCH ×3 (09:08→20:12)
[2022-01-14] MEDS: CORDARONE TAB 200 MG PO SCH (09:08)
[2022-01-14] MEDS: PREDNISONE TAB 5 MG PO SCH (09:08)
[2022-01-14] MEDS: XARELTO PO SCH (09:09)
--- NOTE | 2022-01-14 10:29 | RAD ---
HISTORYSOBSTUDYPortable AP chestCOMPARISONJune 2021FINDINGSStable heart size with dilated aorta, clear lungs and pleural spaces. There is no evidence for developing pneumonia, atelectasis or CHF.IMPRESSIONNo change.Electronically signed by: HENRY PADILLA (Jan 14, 2022 10:28:00)
[2022-01-14] MEDS ORDERED: SYNTHROID 25 mcg TAB PO ONE (10:32)
[2022-01-14] MEDS: SINGULAIR TAB 10 MG PO SCH (21:00)
[2022-01-14] MEDS: FLOMAX PO SCH (21:59)
[2022-01-14] MEDS: LYRICA CAP 75 mg PO SCH (21:59)
[2022-01-15] MEDS: SYNTHROID 125 mcg TAB PO SCH (07:06)
[2022-01-15] MEDS: CORDARONE TAB 200 MG PO SCH (09:03)
[2022-01-15] MEDS: MIRALAX POWDER (1 DOSE 17 G) PO SCH (09:03)
[2022-01-15] MEDS: COLACE CAP 100 MG PO SCH ×2 (09:03→21:39)
[2022-01-15] MEDS: NORCO 10/325 TAB PO SCH ×3 (09:03→21:39)
[2022-01-15] MEDS: PROTONIX TAB 40 MG PO SCH ×2 (09:04→21:40)
[2022-01-15] MEDS: PREDNISONE TAB 5 MG PO SCH (09:04)
[2022-01-15] MEDS: XARELTO PO SCH (09:05)
[2022-01-15] MEDS: SENOKOT PO SCH ×2 (09:05→21:40)
[2022-01-15] MEDS: FLOMAX PO SCH (21:39)
[2022-01-15] MEDS: SINGULAIR TAB 10 MG PO SCH (21:40)
[2022-01-15] MEDS: KLONOPIN TAB 0.5 MG PO PRN (21:40)
[2022-01-15] MEDS: LYRICA CAP 75 mg PO SCH (21:40)
--- NOTE | 2022-01-15 22:33 | PCM.PROG ---
Progress Note - Progress Note for Day of Date of Exam: 01/14/22 - Subjective Subjective: IS CURRENTLY INPATIENT, SWINGBED STATUS FOR PHYSICAL THERAPY AND REHAB PAIN DUE TO PELVIC FRACTURE AND COMPRESSION FRACUTURE OF L2 AN L4. RECENT MRI ALSO REVEALE POSTERIOR OSTEOPHYTES AND POSTERIOR ELEMENT HYPERTROPHY AT L4-5 MAY COMPRESS THE EXITING RIGHT 64 NERVE ROOT. TODAY, SHE IS ALERT AND ORIENTED, LYING IN BED ON MORNING ROUNDS. SHE CONTINUES WITH COMPLAINTS OF PAIN WITH MOVEMENT AND ACTIVITY, BUT SHE DOES REPORT SOME IMPROVEMENT IN SYMPTOMS. SHE SEEMS TO BE MOVING AROUND BETTER COMPARED TO WHEN WE LAST SAW HER. TODAY, SHE COMPLAINS OF HAVING SOME SHORTNESS OF BREATH AND FEELING LIKE HER HEART HAS BEEN FLUTTERING FOR THE PAST FEW DAYS. ON EXAMINATION, HEART IS REGULAR IN RATE AND RHYTYM. BILATERAL LUNGS NOTED WITH DIMINISHED LUNGS SOUNDS THROUGHOUT. ABDOMEN IS ROUND, SOFT, AND NON-TENDER WITH NORMAL BOWEL SOUNDS NOTED IN ALL QUADRANTS. TENDERNESS NOTED TO LUMBAR SPINE. NO UPPER OR LOWER EXTREMITY EDEMA NOTED. HER VITALS THIS MORNING ARE: 97.8-72-20-95%-126/60. LABS WERE OBTAINED. WBC 3.7, HGB 3., HGB 11.9, HCT 35.5, PLT COUNT 139, SODIUM 142, POTASSIUM 3.9, CHLORIDE 107, BUN 9, CREATININE 0.96, GLUCOSE 84, CALCIUM 9.0, ALK PHOS 120, TOTAL PROTEIN 5.6, ALBUMIN 2.8. WE OBTAINED A TSH DUE TO COMPLAINTS OF SHORTNESS OF BREATH AND FLUTTERING. IT WAS 9.639. EKG REVEALED NORMAL SINUS RHYTHM WITH HR 74. CHEST XRAY WAS NEGATIVE FOR ACUTE ABNORMALITY. SHE IS CURRENTLY RECEIVING HYDROCODONE/ACET 10/325MG PO TID, COLACE 100MG O BID, AMIODARONE 200MG PO DAILY, CLONAZEPAM 0.5MG PO BID PRN, SYNTHROID 112MCG PO DAILY, MILK OF MAGNESIA 15ML PO QID PRN, SINGULAIR 10MG PO HS, PROTONIX 40MG PO BID, PYRIDIUM 200MG PO TID PRN, MIRALAX 17G PO DAILY, PREDNISONE 5MG PO DAILY, LYRICA 75 MG PO HS, XARELTO 20MG PO DAILY, SENOKOT 1MG PO BID, FLOMAX 0.4MG PO HS, ULTRAM 50MG PO Q4H PRN, AND THE POTASSIUM PROTOCOL. TODAY, WE WILL CHANGE LEVOTHYROXINE TO 125MCG PO DAILY. PHYSICAL THERAPY HAS BEEN WORKING WITH PATIENT DAILY. SHE HAS BEEN COOPERATIVE WITH THERAPY. OTHERWISE, WE WILL FOLLOW-UP WITH AM LABS AND CONTINUE TO MONITOR. TIME SPENT ON CLINICAL ASSESSMENT, REVIEWING LABS AND IMAGING, DECISION MAKING, AND DOCUMENTATION GREATER THAN 45 MINUTES. - Past Medical Family Social History Past Med/Fam/Surg Hx: No changes since H&P Allergies: Allergies albuterol Allergy (Verified 02/27/21 10:00) caffeine Allergy (Verified 02/27/21 10:00) epinephrine Allergy (Verified 02/27/21 10:00) phenobarbital Allergy (Verified 02/27/21 10:00) - Review of Systems ROS: No change since H&P - Vital Signs and I&O's Vital Signs: Temperature 98.5 F Pulse Rate [Radial] 82 Pulse Rate 72 Respiratory Rate 18 Blood Pressure [Right Arm] 133/63 O2 Sat by Pulse Oximetry 93 Intake and Output: Intake & Output 01/13/22 01/14/22 01/15/22 01/16/22 11:59 11:59 11:59 11:59 Intake Total 660 / 660 1103 / 1103 2285 / 2285 490 / 490 Balance 660 / 660 1103 / 1103 2285 / 2285 490 / 490 - Physical Exam Oriented: Normal Eyes: Normal Ear: Normal Nose: Normal Throat: Normal Respiratory: Generalized, Diminished Cardiovascular: Normal : Normal Auscultation: Bowel Sounds: Normal Palpation: Normal Tenderness: Normal Skin: Normal Musculoskeletal: Back:Lumbar, Pelvis, Tender Psychiatric: Normal Mood Description: Calm Affect: Normal Speech Pattern: Clear, Appropriate - Laboratory and Diagnostics Result Diagrams: 01/14/22 04:35 01/14/22 04:35 Labs: Laboratory WBC 3.7 X10^3/uL (3.6-10.0) 01/14/22 04:35 RBC 3.94 X10^6/uL (3.5-5.4) 01/14/22 04:35 Hgb 11.9 g/dL (12.0-16.0) L 01/14/22 04:35 Hct 35.5 % (36.0-47.0) L 01/14/22 04:35 MCV 90.1 fL (80.0-100.0) 01/14/22 04:35 MCH 30.3 pg (27.0-34.0) 01/14/22 04:35 MCHC 33.7 g/dL (33.0-35.0) 01/14/22 04:35 RDW 16.3 % (11.6-16.5) 01/14/22 04:35 Plt Count 139 X10^3/uL (150.0-450.0) L 01/14/22 04:35 MPV 8.1 fL (7.4-11.0) 01/14/22 04:35 Neut % (Auto) 34.6 % (42.0-75.0) L 01/14/22 04:35 Lymph % (Auto) 47.5 % (21.0-51.0) 01/14/22 04:35 Nelson % (Auto) 14.1 % (0.0-13.0) H 01/14/22 04:35 Eos % (Auto) 2.9 % (0.9-2.9) 01/14/22 04:35 Baso % (Auto) 0.9 % (0.2-1.0) 01/14/22 04:35 Neut # (Auto) 1.3 x10^3/uL (2.2-4.8) L 01/14/22 04:35 Lymph # (Auto) 1.8 X10^3/uL (1.3-2.9) 01/14/22 04:35 Nelson # (Auto) 0.5 x10^3/uL (0.3-0.8) 01/14/22 04:35 Eos # (Auto) 0.1 x10^3/uL (0.0-0.2) 01/14/22 04:35 Baso # (Auto) 0.0 X10^3/uL (0.0-0.1) 01/14/22 04:35 Absolute Nucleated RBC 0.1 /100WBC 01/14/22 04:35 Sodium 142 mmol/L (136-145) 01/14/22 04:35 Corrected Sodium TNP 01/14/22 04:35 Potassium 3.9 mmol/L (3.5-5.1) 01/14/22 04:35 Chloride 107 mmol/L (98-107) 01/14/22 04:35 Carbon Dioxide 30.1 mmol/L (21-32) 01/14/22 04:35 BUN 9 mg/dL (7-18) 01/14/22 04:35 Creatinine 0.96 mg/dL (0.55-1.02) 01/14/22 04:35 Est GFR (MDRD) Af Amer > 60 (>60) 01/14/22 04:35 Est GFR (MDRD) Non-Af 58 (>60) L 01/14/22 04:35 Glucose 84 mg/dL (65-99) 01/14/22 04:35 Calcium 9.0 mg/dL (8.5-10.1) 01/14/22 04:35 Corrected Calcium 10.0 mg/dL (8.5-10.1) 01/14/22 04:35 Magnesium 2.1 mg/dL (1.7-2.9) 01/09/22 08:03 Total Bilirubin 0.50 mg/dL (0.2-1.0) 01/14/22 04:35 AST 21 Units/L (15-37) 01/14/22 04:35 ALT 28 Units/L (12-78) 01/14/22 04:35 Alkaline Phosphatase 120 Units/L (46-116) H 01/14/22 04:35 Total Protein 5.6 g/dL (6.4-8.2) L 01/14/22 04:35 Albumin 2.8 g/dL (3.4-5.0) L 01/14/22 04:35 Globulin 2.8 g/dL (2.5-4.5) 01/14/22 04:35 Albumin/Globulin Ratio 1.0 Ratio (1.1-2.1) L 01/14/22 04:35 TSH 3rd Generation 9.639 uIU/mL (0.358-3.74) H 01/14/22 09:21 - Plan (1) Compression fracture of lumbar vertebra Status: Acute Qualifiers: Lumbar vertebra fracture level: L2 Fracture healing: with routine healing Plan: HYDROCODONE/ACET 10/325MG PO TID, COLACE 100MG O BID, AMIODARONE 200MG PO DAILY, CLONAZEPAM 0.5MG PO BID PRN, SYNTHROID 125MCG PO DAILY, MILK OF MAGNESIA 15ML PO QID PRN, SINGULAIR 10MG PO HS, PROTONIX 40MG PO BID, PYRIDIUM 200MG PO TID PRN, MIRALAX 17G PO DAILY, PREDNISONE 5MG PO DAILY, LYRICA 75 MG PO HS, XARELTO 20MG PO DAILY, SENOKOT 1MG PO BID, FLOMAX 0.4MG PO HS, ULTRAM 50MG PO Q4H PRN, AND THE POTASSIUM PROTOCOL. (2) Pelvic fracture Status: Acute Qualifiers: Encounter type: initial encounter Pelvic bone location: unspecified part of pelvis Fracture type: closed Fracture alignment: nondisplaced Qualified Code(s): S32.9XXA - Fracture of unspecified parts of lumbosacral spine and pelvis, initial encounter for closed fracture (3) Intractable pain Status: Acute (4) Rheumatoid arthritis Status: Acute Qualifiers: Rheumatoid arthritis location: multiple sites Rheumatoid factor presence: unspecified presence Qualified Code(s): M06.9 - Rheumatoid arthritis, unspecified (5) Chronic a-fib Status: Chronic (6) Hypothyroidism Status: Chronic Qualifiers: Hypothyroidism type: acquired Qualified Code(s): E03.9 - Hypothyroidism, unspecified (7) GERD (gastroesophageal reflux disease) Status: Chronic Qualifiers: Esophagitis presence: esophagitis presence not specified
[2022-01-16] MEDS: SYNTHROID 125 mcg TAB PO SCH (05:30)
[2022-01-16] MEDS: COLACE CAP 100 MG PO SCH (08:31)
[2022-01-16] MEDS: NORCO 10/325 TAB PO SCH (08:31)
[2022-01-16] MEDS: CORDARONE TAB 200 MG PO SCH (08:32)
[2022-01-16] MEDS: PROTONIX TAB 40 MG PO SCH (08:32)
[2022-01-16] MEDS: MIRALAX POWDER (1 DOSE 17 G) PO SCH (08:32)
[2022-01-16] MEDS: PREDNISONE TAB 5 MG PO SCH (08:32)
[2022-01-16] MEDS: XARELTO PO SCH (08:33)
[2022-01-16] MEDS: SENOKOT PO SCH (08:33)
[2022-01-16 09:56] VITALS: BP 127/57
== END 2022-01-16 11:30 | disposition home health service (06) | DRG 560 ==
LOC: MED/SURG 15:10
PROVIDERS: ADMIT Internal Medicine; ATTEND Internal Medicine
DX: Z51.89 Encounter for other specified aftercare; S32.89XD Fracture of other parts of pelvis, subsequent encounter for fracture with routine healing; K21.9 Gastro-esophageal reflux disease without esophagitis; W18.39XD Other fall on same level, subsequent encounter; G25.81 Restless legs syndrome; S32.030D Wedge compression fracture of third lumbar vertebra, subsequent encounter for fracture with routine healing; I48.20 Chronic atrial fibrillation, unspecified; R06.02 Shortness of breath; M06.9 Rheumatoid arthritis, unspecified; E03.8 Other specified hypothyroidism

== ENCOUNTER 2023-12-29 12:24 | Inpatient (IN) ==
--- NOTE | 2023-12-29 12:49 | EKG ---
Test Reason : altered mental status Blood Pressure : */* mmHG Vent. Rate : 60 BPM Atrial Rate : 60 BPM P-R Int : 222 ms QRS Dur : 84 ms QT Int : 368 ms P-R-T Axes : 64 -37 60 degrees QTc Int : 368 ms Sinus rhythm with 1st degree AV block Left axis deviation Low voltage QRS Septal infarct , age undetermined Abnormal ECG No previous ECGs available Confirmed by Shane Pack MD ([id number]) on 12/30/2023 7:34:11 AM Referred By: Confirmed By: Shane Pack MD
--- NOTE | 2023-12-29 12:54 | DR.AMS ---
HPI Time Seen Time Seen by Provider: 12/29/23 12:33 Complaint Cheif Complaint Doctors Comments: 88-year-old female brought in by EMS for evaluation. Patient was fine yesterday, no complaints. Spouse found the patient difficult to arouse today, could not wake her up all the way. Patient been confused as well.. Has episodes like this when she has a urinary tract infection. No reported fever, chills, URI symptoms. No cough, nausea, vomiting, diarrhea. No known urinary issues.. Urine obtained here shows a cloudy specimen. Reviewed Nurses Notes Reviewed: Yes Mode of Arrival Mode of Arrival: EMS PMH PMH Past Medical History: Asthma, GERD, Hypertension and Hyperthyroidism Past Surgical History: Yes Surgical History: Angioplasty/Stents, Cholecystectomy and Hysterectomy Family History Family Medical History: Cancer, PA and Coronary Artery Disease Social History Does patient currently use any type of tobacco product: No Alcohol Use: None Do you use any recreational Drugs:: No ROS Review of Systems Constitutional: Weakness Eyes: No Symptoms Reported ENTM: No Symptoms Reported Respiratoy: No Symptoms Reported Cardiovascular: No Symptoms Reported Gastrointestinal/Abdominal: No Symptoms Reported Genitourinary: No Symptoms Reported Neurological: Weakness Musculoskeletal: No Symptoms Reported Integumentary: No Symptoms Reported Hematologic/Lymphatic: No Symptoms Reported Psychiatric: No Symptoms Reported All Other Systems: Reviewed and Negative PE Vitals Vital Signs: Temp Pulse Resp BP Pulse Ox O2 Del Method 12/29/23 14:45 60 22 12/29/23 14:31 54 L 95 12/29/23 14:31 112/51 12/29/23 14:30 56 L 93 L 12/29/23 14:15 57 L 95 12/29/23 14:01 57 L 94 L 12/29/23 14:01 94/49 12/29/23 14:00 57 L 95 12/29/23 13:45 57 L 96 12/29/23 13:30 57 L 96 12/29/23 13:30 96/51 12/29/23 13:15 58 L 94 L 12/29/23 13:00 60 96 12/29/23 13:00 89/51 12/29/23 12:45 61 94 L 12/29/23 12:30 65 94 L 12/29/23 12:30 86/52 12/29/23 12:27 64 92 L 12/29/23 12:27 93/55 12/29/23 12:24 98.4 F 64 18 55 92 L Room Air General General Appearance: Alert, In No Apparent Distress and Other (sleepy but arousable.) Eyes Eye exam: PERRL and EOMI ENT ENT Exam: Normal Oropharynx and Mucous Membranes Moist Neck Neck Exam: Normal Inspection Respiratory Respiratory Exam: Normal Lung Sounds Bilat; negative Accessory Muscle Use or Respiratory Distress Cardiovascular Cardiovascular Exam: Regular Rate, Normal Rhythm and Normal Heart Sounds Abdominal Exam Abdominal Exam: Normal Bowel Sounds, Soft and Tenderness (across the lower abdomen, mild guarding.) Extremities Extremities Exam: Normal Inspection; negative Edema Neurological Neurological Exam: Other (somnolent, confused.) Skin Skin Exam: Warm and Dry COURSE Treatment Treatment: 88-year-old female found to be sleepy, difficult to arouse, confused today. Gets these episodes with UTIs. Urine sample obtained, is cloudy. Workup initiated. 1500 -urinalysis shows too numerous to count white blood cells per high-power field. Has 3+ bacteria, leukocyte Estrace. Has mild anemia with a hemoglobin of 9.7. Chemistries otherwise acceptable. Lactic acid was good at 1.7. Patient was recently treated with cephalexin for UTI. Was given IV Rocephin to start. Recommend admission to the hospital, discussed with Dr. Slater. Will treat patient with IV Zosyn while in the hospital. ROR Labs Reviewed Laboratory Results Reviewed?: Yes 12/29/23 13:10 12/29/23 13:10 Laboratory: WBC 6.2 X10^3/uL (3.6-10.0) 12/29/23 13:10 RBC 3.85 X10^6/uL (3.5-5.4) 12/29/23 13:10 Hgb 9.7 g/dL (12.0-16.0) L 12/29/23 13:10 Hct 29.9 % (36.0-47.0) L 12/29/23 13:10 MCV 77.5 fL (80.0-100.0) L 12/29/23 13:10 MCH 25.3 pg (27.0-34.0) L 12/29/23 13:10 MCHC 32.6 g/dL (33.0-35.0) L 12/29/23 13:10 RDW 19.1 % (11.6-16.5) H 12/29/23 13:10 Plt Count 137 X10^3/uL (150.0-450.0) L 12/29/23 13:10 MPV 7.4 fL (7.4-11.0) 12/29/23 13:10 Neut % (Auto) 61.8 % (42.0-75.0) 12/29/23 13:10 Lymph % (Auto) 30.4 % (21.0-51.0) 12/29/23 13:10 [place] % (Auto) 6.4 % (0.0-13.0) 12/29/23 13:10 Eos % (Auto) 0.3 % (0.9-2.9) L 12/29/23 13:10 Baso % (Auto) 1.1 % (0.2-1.0) H 12/29/23 13:10 Neut # (Auto) 3.8 x10^3/uL (2.2-4.8) 12/29/23 13:10 Lymph # (Auto) 1.9 X10^3/uL (1.3-2.9) 12/29/23 13:10 [place] # (Auto) 0.4 x10^3/uL (0.3-0.8) 12/29/23 13:10 Eos # (Auto) 0.0 x10^3/uL (0.0-0.2) 12/29/23 13:10 Baso # (Auto) 0.1 X10^3/uL (0.0-0.1) 12/29/23 13:10 Absolute Nucleated RBC 0.1 /100WBC 12/29/23 13:10 Sodium 146 mmol/L (136-145) H 12/29/23 13:10 Corrected Sodium TNP 12/29/23 13:10 Potassium 3.6 mmol/L (3.5-5.1) 12/29/23 13:10 Chloride 109 mmol/L (98-107) H 12/29/23 13:10 Carbon Dioxide 30.2 mmol/L (21-32) 12/29/23 13:10 BUN 15 mg/dL (7-18) 12/29/23 13:10 Creatinine 1.47 mg/dL (0.55-1.02) H 12/29/23 13:10 Est GFR (MDRD) Af Amer 43 (>60) L 12/29/23 13:10 Est GFR (MDRD) Non-Af 36 (>60) L 12/29/23 13:10 Glucose 96 mg/dL (65-99) 12/29/23 13:10 Lactic Acid 1.7 mmol/L (0.4-2.0) 12/29/23 13:10 Calcium 8.7 mg/dL (8.5-10.1) 12/29/23 13:10 Corrected Calcium 9.7 mg/dL (8.5-10.1) 12/29/23 13:10 Total Bilirubin 0.70 mg/dL (0.2-1.0) 12/29/23 13:10 AST 25 Units/L (15-37) 12/29/23 13:10 ALT 19 Units/L (12-78) 12/29/23 13:10 Alkaline Phosphatase 65 Units/L (46-116) 12/29/23 13:10 Troponin I High Sens 24.0 ng/L (4.0-60.0) 12/29/23 13:10 Total Protein 5.8 g/dL (6.4-8.2) L 12/29/23 13:10 Albumin 2.8 g/dL (3.4-5.0) L 12/29/23 13:10 Globulin 3.0 g/dL (2.5-4.5) 12/29/23 13:10 Albumin/Globulin Ratio 0.9 Ratio (1.1-2.1) L 12/29/23 13:10 Lipase 12 Units/L (16-77) L 12/29/23 13:10 Specimen Type Clean catch urine 12/29/23 12:53 Urine Color Yellow (YELLOW) 12/29/23 12:53 Urine Appearance Cloudy (CLEAR) 12/29/23 12:53 Urine pH 6.0 (5.0 - 8.0) 12/29/23 12:53 Ur Specific Bowman 1.015 (1.000-1.030) 12/29/23 12:53 Urine Protein 2+ (NEGATIVE) 12/29/23 12:53 Urine Glucose (UA) Negative (NEGATIVE) 12/29/23 12:53 Urine Ketones Negative (NEGATIVE) 12/29/23 12:53 Urine Blood 2+ (NEGATIVE) 12/29/23 12:53 Urine Nitrite Negative (NEGATIVE) 12/29/23 12:53 Urine Bilirubin Negative (NEGATIVE) 12/29/23 12:53 Urine Urobilinogen Normal (NORMAL) 12/29/23 12:53 Ur Leukocyte Esterase 3+ (NEGATIVE) 12/29/23 12:53 Urine RBC 5-10 /HPF (0-3) A 12/29/23 12:53 Urine WBC Tntc /HPF (0-5) A 12/29/23 12:53 Ur Squamous Epith Cells Rare /HPF (NEGATIVE) 12/29/23 12:53 Urine Bacteria 3+ /HPF (NEGATIVE) 12/29/23 12:53 Ur Culture Indicated? Yes/culture set up 12/29/23 12:53 EKG Rate: 60 [place]: LAD Rhythm: NSR Block: 1 ST: Normal Opioid Opioid Risk Tool Age ([place] box if 16-45): No History of Preadolescent Sexual Abuse: No Total: 0 Total Score Risk Category: Low Risk Copyright: Anthony BILLINGSLEY predicting aberrant behaviors Discharge Plan Diagnosis Discharge Problem: Acute UTI, Altered mental status Discharge Plan Patient Disposition: 09 ADMITTED INPATIENT Condition: Stable Prescriptions: No Action ropinirole 2 mg tablet 2 mg PO BID pregabalin 75 mg Capsule 75 mg PO QHS amiodarone 200 mg Tablet 200 mg PO DAILY montelukast 10 mg Tablet 10 mg PO QHS nebivolol 5 mg Tablet 5 mg PO DAILY Xarelto 20 mg tablet 20 mg PO QDAY prednisone 5 mg tablet 5 mg PO DAILY pantoprazole 40 mg tablet,delayed release (DR/EC) 40 mg PO BID levothyroxine 125 mcg Tablet 125 mcg PO DAILY@0630 Qty: 30 3RF Rx Instructions: take one tablet daily Health Concerns: Post Hospitalization: new medications and changes needed to prevent readmission or further decline. Pt educated and given instructions on all concerns. Plan of Treatment: Continue with present treatment and follow up plan. Pt is to keep follow up appointment as instructed and take medications as ordered. Orders to Discharge Patient Discharge Orders: Transfer (Routine); Ordered 12/29/23 Ordered By: Vasu Myles Follow ups/Referrals Follow ups/Referrals: Brendan Mccollum [Primary Care Provider] - 3 days
[2023-12-29 13:21] LABS: BILIRUBIN,URINE NEGATIVE (NEGATIVE); BLOOD/HEMOGLOBIN,URINE 2+ (NEGATIVE); GLUCOSE, URINE NEGATIVE (NEGATIVE); KETONES,URINE NEGATIVE (NEGATIVE); LEUKOCYTE ESTERASE ,URINE 3+ (NEGATIVE); NITRITES,URINE NEGATIVE (NEGATIVE); PROTEIN,URINE 2+ (NEGATIVE); UROBILINOGEN,URINE NORMAL (NORMAL)
[2023-12-29 13:30] LABS: BASOPHILS # (AUTO) 0.1 X10^3/uL (0.0-0.1); BASOPHILS % (AUTO) 1.1 % (0.2-1.0); EOSINOPHILS % (AUTO) 0.3 % (0.9-2.9); HEMATOCRIT 29.9 % (36.0-47.0); HEMOGLOBIN 9.7 g/dL (12.0-16.0); LYMPHOCYTES # (AUTO) 1.9 X10^3/uL (1.3-2.9); LYMPHOCYTES % (AUTO) 30.4 % (21.0-51.0); MEAN CORPUSCULAR HEMOGLOBIN 25.3 pg (27.0-34.0); MEAN CORPUSCULAR HGB CONC 32.6 g/dL (33.0-35.0); MEAN CORPUSCULAR VOLUME 77.5 fL (80.0-100.0); MEAN PLATELET VOLUME 7.4 fL (7.4-11.0); MONOCYTES # (AUTO) 0.4 x10^3/uL (0.3-0.8); MONOCYTES % (AUTO) 6.4 % (0.0-13.0); NEUTROPHILS # (AUTO) 3.8 x10^3/uL (2.2-4.8); NEUTROPHILS % (AUTO) 61.8 % (42.0-75.0); PLATELET COUNT 137 X10^3/uL (150.0-450.0); RED BLOOD COUNT 3.85 X10^6/uL (3.5-5.4); RED CELL DISTRIBUTION WIDTH 19.1 % (11.6-16.5); WHITE BLOOD COUNT 6.2 X10^3/uL (3.6-10.0)
[2023-12-29 13:38] LABS: APPEARANCE,URINE CLOUDY (CLEAR); BACTERIA,URINE 3+ /HPF (NEGATIVE); COLOR,URINE YELLOW (YELLOW); SQUAMOUS EPITHELIAL CELL,UR RARE /HPF (NEGATIVE)
[2023-12-29 13:47] LABS: ALANINE AMINOTRANSFERASE 19 Units/L (12-78); ALBUMIN 2.8 g/dL (3.4-5.0); ALKALINE PHOSPHATASE 65 Units/L (46-116); ASPARTATE AMINO TRANSFERASE 25 Units/L (15-37); BLOOD UREA NITROGEN 15 mg/dL (7-18); CALCIUM 8.7 mg/dL (8.5-10.1); CARBON DIOXIDE 30.2 mmol/L (21-32); CHLORIDE 109 mmol/L (98-107); COR CA(FOR HYPOALB) 9.7 mg/dL (8.5-10.1); CREATININE 1.47 mg/dL (0.55-1.02); GLUCOSE 96 mg/dL (65-99); LIPASE 12 Units/L (16-77); POTASSIUM 3.6 mmol/L (3.5-5.1); SODIUM 146 mmol/L (136-145); TOTAL PROTEIN 5.8 g/dL (6.4-8.2); eGFR NON BLACK RACES 36 (>60)
[2023-12-29] MEDS: ROCEPHIN VIAL 1 GRAM IVP ONE (13:58)
[2023-12-29] MEDS: NS 500 ML IV 500 ML IV ONE ×2 (15:23→17:33)
[2023-12-29] MEDS ORDERED: CONSULT PHARMACY - POTASSIUM & MAGNESIUM XX SCH (15:34)
[2023-12-29] MEDS ORDERED: NS 250 ML IV 25 ML IV PRN (15:34)
[2023-12-29] MEDS: D5 NS 1,000 ML IV 1,000 ML IV SCH (16:41)
[2023-12-29] MEDS: ZOSYN VIAL 3.375 GRAMS 3.375 G in NS 100 ML IV 100 ML IV SCH (17:04)
[2023-12-29 18:17] VITALS: BMI 26.6
[2023-12-29] MEDS: XOPENEX 1.25 MG/3 ML NEBULE NEB PRN (20:01)
[2023-12-29] MEDS: K-DUR TAB 20 MEQ PO SCH (21:32)
[2023-12-29] MEDS: SINGULAIR TAB 10 MG PO SCH (21:32)
[2023-12-29] MEDS: LYRICA CAP 75 mg PO SCH (21:32)
[2023-12-29] MEDS: PROTONIX TAB 40 MG PO SCH (21:32)
[2023-12-29] MEDS: REQUIP PO SCH (21:33)
[2023-12-30] MEDS: SYNTHROID 125 mcg TAB PO SCH (06:02)
[2023-12-30 06:19] LABS: BASOPHILS # (AUTO) 0.1 X10^3/uL (0.0-0.1); EOSINOPHILS % (AUTO) 0.3 % (0.9-2.9); HEMATOCRIT 28.5 % (36.0-47.0); HEMOGLOBIN 9.1 g/dL (12.0-16.0); LYMPHOCYTES # (AUTO) 1.3 X10^3/uL (1.3-2.9); MEAN CORPUSCULAR HEMOGLOBIN 24.8 pg (27.0-34.0); MEAN CORPUSCULAR HGB CONC 31.9 g/dL (33.0-35.0); MEAN CORPUSCULAR VOLUME 77.8 fL (80.0-100.0); MEAN PLATELET VOLUME 7.4 fL (7.4-11.0); MONOCYTES # (AUTO) 0.5 x10^3/uL (0.3-0.8); MONOCYTES % (AUTO) 7.9 % (0.0-13.0); NEUTROPHILS # (AUTO) 3.9 x10^3/uL (2.2-4.8); NEUTROPHILS % (AUTO) 66.8 % (42.0-75.0); PLATELET COUNT 117 X10^3/uL (150.0-450.0); RED BLOOD COUNT 3.66 X10^6/uL (3.5-5.4); RED CELL DISTRIBUTION WIDTH 19.6 % (11.6-16.5); WHITE BLOOD COUNT 5.8 X10^3/uL (3.6-10.0)
[2023-12-30 06:33] LABS: ALANINE AMINOTRANSFERASE 16 Units/L (12-78); ALBUMIN 2.4 g/dL (3.4-5.0); ALKALINE PHOSPHATASE 56 Units/L (46-116); ASPARTATE AMINO TRANSFERASE 24 Units/L (15-37); BLOOD UREA NITROGEN 10 mg/dL (7-18); CALCIUM 7.9 mg/dL (8.5-10.1); CARBON DIOXIDE 26.8 mmol/L (21-32); CHLORIDE 108 mmol/L (98-107); COR CA(FOR HYPOALB) 9.2 mg/dL (8.5-10.1); CREATININE 1.09 mg/dL (0.55-1.02); GLUCOSE 105 mg/dL (65-99); MAGNESIUM 1.8 mg/dL (2.0-2.9); POTASSIUM 3.9 mmol/L (3.5-5.1); SODIUM 141 mmol/L (136-145); TOTAL PROTEIN 5.4 g/dL (6.4-8.2); eGFR NON BLACK RACES 50 (>60)
[2023-12-30] MEDS ORDERED: CONSULT PHARMACY - POTASSIUM & MAGNESIUM XX SCH (07:00)
[2023-12-30] MEDS: CORDARONE TAB 200 MG PO SCH (09:21)
[2023-12-30] MEDS: MAG-OX TAB PO SCH (09:21)
[2023-12-30] MEDS: XARELTO PO SCH (09:21)
[2023-12-30] MEDS: PREDNISONE TAB 5 MG PO SCH (09:22)
[2023-12-30] MEDS ORDERED: TYLENOL 325 MG TAB PO PRN (16:20)
[2023-12-30] MEDS: ZEBETA TAB 5 MG PO SCH (16:39)
[2023-12-30] MEDS: TYLENOL 325 MG TAB PO ONE (16:40)
[2023-12-31 06:13] LABS: BASOPHILS # (AUTO) 0.1 X10^3/uL (0.0-0.1); BASOPHILS % (AUTO) 2.5 % (0.2-1.0); EOSINOPHILS % (AUTO) 1.4 % (0.9-2.9); HEMATOCRIT 28.8 % (36.0-47.0); HEMOGLOBIN 9.3 g/dL (12.0-16.0); LYMPHOCYTES # (AUTO) 0.9 X10^3/uL (1.3-2.9); LYMPHOCYTES % (AUTO) 26.7 % (21.0-51.0); MEAN CORPUSCULAR HEMOGLOBIN 25.2 pg (27.0-34.0); MEAN CORPUSCULAR HGB CONC 32.3 g/dL (33.0-35.0); MEAN PLATELET VOLUME 7.6 fL (7.4-11.0); MONOCYTES # (AUTO) 0.2 x10^3/uL (0.3-0.8); MONOCYTES % (AUTO) 7.3 % (0.0-13.0); NEUTROPHILS # (AUTO) 2.1 x10^3/uL (2.2-4.8); NEUTROPHILS % (AUTO) 62.1 % (42.0-75.0); PLATELET COUNT 110 X10^3/uL (150.0-450.0); RED CELL DISTRIBUTION WIDTH 20.3 % (11.6-16.5); WHITE BLOOD COUNT 3.3 X10^3/uL (3.6-10.0)
[2023-12-31 06:32] LABS: ALANINE AMINOTRANSFERASE 22 Units/L (12-78); ALBUMIN 2.6 g/dL (3.4-5.0); ALKALINE PHOSPHATASE 65 Units/L (46-116); ASPARTATE AMINO TRANSFERASE 24 Units/L (15-37); BLOOD UREA NITROGEN 6 mg/dL (7-18); CALCIUM 8.3 mg/dL (8.5-10.1); CHLORIDE 109 mmol/L (98-107); COR CA(FOR HYPOALB) 9.4 mg/dL (8.5-10.1); CREATININE 0.92 mg/dL (0.55-1.02); GLUCOSE 84 mg/dL (65-99); MAGNESIUM 2.1 mg/dL (2.0-2.9); POTASSIUM 3.3 mmol/L (3.5-5.1); SODIUM 144 mmol/L (136-145); TOTAL PROTEIN 5.9 g/dL (6.4-8.2); eGFR NON BLACK RACES > 60 (>60)
[2023-12-31 06:38] LABS: ANISOCYTOSIS 1+; PLATELET MORPHOLOGY COMMENT NORMAL (NORMAL)
[2023-12-31] MEDS ORDERED: IMODIUM CAP 2 MG PO PRN (09:35)
[2023-12-31] MEDS: VSL#3 PROBIOTIC CAP 112.5 B PO SCH (12:23)
[2023-12-31] MEDS: CIPRO IV 400 MG PREMIX* 400 MG/200 ML IV.SOLN. IV SCH (12:23)
[2024-01-01 05:52] LABS: BASOPHILS # (AUTO) 0.1 X10^3/uL (0.0-0.1); BASOPHILS % (AUTO) 1.4 % (0.2-1.0); EOSINOPHILS # (AUTO) 0.1 x10^3/uL (0.0-0.2); EOSINOPHILS % (AUTO) 3.4 % (0.9-2.9); HEMATOCRIT 27.7 % (36.0-47.0); HEMOGLOBIN 8.8 g/dL (12.0-16.0); LYMPHOCYTES # (AUTO) 1.2 X10^3/uL (1.3-2.9); LYMPHOCYTES % (AUTO) 33.3 % (21.0-51.0); MEAN CORPUSCULAR HEMOGLOBIN 24.8 pg (27.0-34.0); MEAN CORPUSCULAR HGB CONC 31.7 g/dL (33.0-35.0); MEAN PLATELET VOLUME 7.8 fL (7.4-11.0); MONOCYTES # (AUTO) 0.4 x10^3/uL (0.3-0.8); NEUTROPHILS # (AUTO) 1.8 x10^3/uL (2.2-4.8); NEUTROPHILS % (AUTO) 49.9 % (42.0-75.0); PLATELET COUNT 116 X10^3/uL (150.0-450.0); RED BLOOD COUNT 3.55 X10^6/uL (3.5-5.4); RED CELL DISTRIBUTION WIDTH 19.4 % (11.6-16.5); WHITE BLOOD COUNT 3.6 X10^3/uL (3.6-10.0)
[2024-01-01 06:02] LABS: ALANINE AMINOTRANSFERASE 18 Units/L (12-78); ALBUMIN 2.4 g/dL (3.4-5.0); ALKALINE PHOSPHATASE 58 Units/L (46-116); ASPARTATE AMINO TRANSFERASE 20 Units/L (15-37); BLOOD UREA NITROGEN 4 mg/dL (7-18); CARBON DIOXIDE 29.4 mmol/L (21-32); CHLORIDE 110 mmol/L (98-107); COR CA(FOR HYPOALB) 9.3 mg/dL (8.5-10.1); CREATININE 0.78 mg/dL (0.55-1.02); GLUCOSE 90 mg/dL (65-99); POTASSIUM 3.4 mmol/L (3.5-5.1); SODIUM 144 mmol/L (136-145); TOTAL PROTEIN 5.4 g/dL (6.4-8.2); eGFR NON BLACK RACES > 60 (>60)
--- NOTE | 2024-01-01 07:23 | RAD ---
EXAM:KUBHISTORY:Cramping painCOMPARISON:CT abdomen 09/27/2020FINDINGS:Unremarkable gas pattern without evidence for obstruction or localized intestinal ileus. Surgical clips right upper quadrant. No definite mass or visceral enlargement. Compression deformities again noted lumbar spine post vertebroplasty at L1.IMPRESSION:No significant/acute findings.THIS IS AN ELECTRONICALLY VERIFIED FINAL REPORT01/01/2024 7:19 AM - Electronically signed by Georges Ureña MD
--- NOTE | 2024-01-01 09:40 | DR.H&P ---
H&P History & Physical for Day of: H&P Date: 12/30/23 Chief Complaint Chief Complaint: Confusion Dysuria History of Present Illness History of Present Illness: Pt is a 88 year old female with past medical history of atrial fibrillation, hypertension, hypothyroidism, asthma, GERD, presenting with confusion and dysuria for the past few days. Denies fevers but does report some chills. Labs/imaging: WBC 5.8, hemoglobin 9.1, platelets 117, sodium 141, potassium 3.9, creatinine 1.09, glucose 105, magnesium 1.8, UA consistent with infection, urine/blood cultures pending. Patient was admitted for acute cystitis. Will start on IV fluids D5 normal saline at 80 mL/h. She received 1 dose of Rocephin in the ER and is now currently receiving IV Zosyn. Will continue antibiotics. Restart home medications. Otherwise continue current treatment plan. Continue closely monitor and follow-up labs in the morning. Past Medical History Past Medical History: Asthma, GERD, Hypertension and Hyperthyroidism Past Surgical History Surgical History: Cholecystectomy, Hysterectomy, Ortho Surgery and Tonsillectomy Family History Family Medical History: Cancer, CO and Coronary Artery Disease Social History Does patient currently use any type of tobacco product: No Have you used tobacco products in the last 12 months: No Type of Tobacco Use: None Does any household member use tobacco: No Alcohol Use: None Drug Use: None Medications Home Medications: Home Medications Medication Instructions Recorded Confirmed Type pantoprazole 40 mg tablet,delayed 40 mg PO BID 08/04/20 12/29/23 History release prednisone 5 mg tablet 5 mg PO DAILY 08/04/20 12/29/23 History amiodarone 200 mg tablet 200 mg PO DAILY 12/30/21 12/29/23 History montelukast 10 mg tablet 10 mg PO QHS 12/30/21 12/29/23 History nebivolol 5 mg tablet 5 mg PO DAILY 12/30/21 12/29/23 History pregabalin 75 mg capsule 75 mg PO QHS 12/30/21 12/29/23 History ropinirole 2 mg tablet 2 mg PO BID 06/07/23 12/29/23 History rivaroxaban 20 mg tablet (Xarelto) 20 mg PO QDAY 12/29/23 12/29/23 History Allergies Allergies Allergy/AdvReac Type Severity Reaction Status Date / Time albuterol Allergy Verified 02/27/21 10:00 caffeine Allergy Verified 06/07/23 13:24 epinephrine Allergy Verified 06/07/23 13:24 phenobarbital Allergy Verified 06/07/23 13:24 Labs 01/01/24 05:20 01/01/24 05:20 Labs: 12/29/23 13:20 Blood Blood Culture - Preliminary 12/29/23 13:10 Blood Blood Culture - Final Escherichia Coli 12/29/23 12:53 Urine,Clean Catch Urine Culture - Final Klebsiella Pneumoniae Escherichia Coli Laboratory WBC 3.6 X10^3/uL (3.6-10.0) 01/01/24 05:20 RBC 3.55 X10^6/uL (3.5-5.4) 01/01/24 05:20 Hgb 8.8 g/dL (12.0-16.0) L 01/01/24 05:20 Hct 27.7 % (36.0-47.0) L 01/01/24 05:20 MCV 78.0 fL (80.0-100.0) L 01/01/24 05:20 MCH 24.8 pg (27.0-34.0) L 01/01/24 05:20 MCHC 31.7 g/dL (33.0-35.0) L 01/01/24 05:20 RDW 19.4 % (11.6-16.5) H 01/01/24 05:20 Plt Count 116 X10^3/uL (150.0-450.0) L 01/01/24 05:20 Plt Count Comment Decreased (ADEQUATE) A 12/31/23 05:48 MPV 7.8 fL (7.4-11.0) 01/01/24 05:20 Neut % (Auto) 49.9 % (42.0-75.0) 01/01/24 05:20 Lymph % (Auto) 33.3 % (21.0-51.0) 01/01/24 05:20 [place] % (Auto) 12.0 % (0.0-13.0) 01/01/24 05:20 Eos % (Auto) 3.4 % (0.9-2.9) H 01/01/24 05:20 Baso % (Auto) 1.4 % (0.2-1.0) H 01/01/24 05:20 Neut # (Auto) 1.8 x10^3/uL (2.2-4.8) L 01/01/24 05:20 Lymph # (Auto) 1.2 X10^3/uL (1.3-2.9) L 01/01/24 05:20 [place] # (Auto) 0.4 x10^3/uL (0.3-0.8) 01/01/24 05:20 Eos # (Auto) 0.1 x10^3/uL (0.0-0.2) 01/01/24 05:20 Baso # (Auto) 0.1 X10^3/uL (0.0-0.1) 01/01/24 05:20 Absolute Nucleated RBC 0.1 /100WBC 01/01/24 05:20 Plt Morphology Comment Normal (NORMAL) 12/31/23 05:48 RBC Morphology Abnormal (NORMAL) A 12/31/23 05:48 Anisocytosis 1+ A 12/31/23 05:48 Sodium 144 mmol/L (136-145) 01/01/24 05:20 Corrected Sodium TNP 01/01/24 05:20 Potassium 3.4 mmol/L (3.5-5.1) L 01/01/24 05:20 Chloride 110 mmol/L (98-107) H 01/01/24 05:20 Carbon Dioxide 29.4 mmol/L (21-32) 01/01/24 05:20 BUN 4 mg/dL (7-18) L 01/01/24 05:20 Creatinine 0.78 mg/dL (0.55-1.02) 01/01/24 05:20 Est GFR (MDRD) Af Amer > 60 (>60) 01/01/24 05:20 Est GFR (MDRD) Non-Af > 60 (>60) 01/01/24 05:20 Glucose 90 mg/dL (65-99) 01/01/24 05:20 Lactic Acid 1.7 mmol/L (0.4-2.0) 12/29/23 13:10 Calcium 8.0 mg/dL (8.5-10.1) L 01/01/24 05:20 Corrected Calcium 9.3 mg/dL (8.5-10.1) 01/01/24 05:20 Magnesium 2.1 mg/dL (2.0-2.9) 12/31/23 05:48 Total Bilirubin 0.40 mg/dL (0.2-1.0) 01/01/24 05:20 AST 20 Units/L (15-37) 01/01/24 05:20 ALT 18 Units/L (12-78) 01/01/24 05:20 Alkaline Phosphatase 58 Units/L (46-116) 01/01/24 05:20 Troponin I High Sens 24.0 ng/L (4.0-60.0) 12/29/23 13:10 Total Protein 5.4 g/dL (6.4-8.2) L 01/01/24 05:20 Albumin 2.4 g/dL (3.4-5.0) L 01/01/24 05:20 Globulin 3.0 g/dL (2.5-4.5) 01/01/24 05:20 Albumin/Globulin Ratio 0.8 Ratio (1.1-2.1) L 01/01/24 05:20 Lipase 12 Units/L (16-77) L 12/29/23 13:10 Specimen Type Clean catch urine 12/29/23 12:53 Urine Color Yellow (YELLOW) 12/29/23 12:53 Urine Appearance Cloudy (CLEAR) 12/29/23 12:53 Urine pH 6.0 (5.0 - 8.0) 12/29/23 12:53 Ur Specific [place] 1.015 (1.000-1.030) 12/29/23 12:53 Urine Protein 2+ (NEGATIVE) 12/29/23 12:53 Urine Glucose (UA) Negative (NEGATIVE) 12/29/23 12:53 Urine Ketones Negative (NEGATIVE) 12/29/23 12:53 Urine Blood 2+ (NEGATIVE) 12/29/23 12:53 Urine Nitrite Negative (NEGATIVE) 12/29/23 12:53 Urine Bilirubin Negative (NEGATIVE) 12/29/23 12:53 Urine Urobilinogen Normal (NORMAL) 12/29/23 12:53 Ur Leukocyte Esterase 3+ (NEGATIVE) 12/29/23 12:53 Urine RBC 5-10 /HPF (0-3) A 12/29/23 12:53 Urine WBC Tntc /HPF (0-5) A 12/29/23 12:53 Ur Squamous Epith Cells Rare /HPF (NEGATIVE) 12/29/23 12:53 Urine Bacteria 3+ /HPF (NEGATIVE) 12/29/23 12:53 Ur Culture Indicated? Yes/culture set up 12/29/23 12:53 Review of Systems Constitutional: Chills and Weakness Eyes: No Symptoms Reported ENT: No Symptoms Reported Respiratory: No Symptoms Reported Cardiovascular: No Symptoms Reported Gastrointestinal: No Symptoms Reported Genitourinary: No Symptoms Reported Musculoskeletal: No Symptoms Reported Skin: No Symptoms Reported Neurological: Confusion Physical Exam Vital Signs: Vital Signs Temperature 97.9 F Pulse Rate [Bilateral Radial] 62 Pulse Rate 55 Respiratory Rate 20 Blood Pressure [Left Arm] 131/63 O2 Sat by Pulse Oximetry 97 O2 Sat by Pulse Oximetry 98 Oriented: Normal Eyes: Normal Ear: Normal Nose: Normal Throat: Normal Respiratory: Clear Throughout Cardiovascular: Normal : Normal Auscultation: Bowel Sounds: Normal Palpation: Normal Tenderness: Suprapubic Skin: Normal Musculoskeletal: Normal Psychiatric: Normal Mood Description: Calm and Appropriate Affect: Normal Speech Pattern: Clear and Appropriate Assessment/Plan (1) Acute UTI: Status: Acute Plan: IV zosyn Urine/blood cultures pending (2) Altered mental status: Status: Acute (3) Multilevel degenerative joint disease of spine: Status: Acute (4) Atrial fibrillation: Qualifiers: Atrial fibrillation type: paroxysmal Qualified Code(s): I48.0 - Paroxysmal atrial fibrillation Status: Acute (5) Hypothyroidism: Qualifiers: Hypothyroidism type: acquired Qualified Code(s): E03.9 - Hypothy roidism, unspecified Status: Chronic (6) Essential hypertension: Status: Chronic Review H&P Reviewed: Yes Patient was examined?: Yes
[2024-01-01] MEDS: K-DUR TAB 20 MEQ PO SCH (09:50)
--- NOTE | 2024-01-01 10:06 | PCM.PROG ---
Progress Note Progress Note for Day of Date of Exam: 12/31/23 Subjective Subjective: Pt is a 88 year old female with past medical history of atrial fibrillation, hypertension, hypothyroidism, asthma, GERD, admitted for acute cystitis and now bacteremia. Pt reports some improvement in her symptoms. No acute events overnight. Labs/imaging: WBC 3.3, hemoglobin 9.3, platelets 110, sodium 144, potassium 3.3, creatinine 0.92, glucose 84, Urine culture positive for Klebsiella Pneumoniae and E. coli, Blood cultures positive for E coli. Continue IV fluids D5 normal saline at 80 mL/h. Will change antibiotics from IV Zosyn to Ciprofloxacin based on culture and sensitivities. Will repeat blood cultures. Home medications have been resumed. Otherwise continue current treatment plan. Continue closely monitor and follow-up labs in the morning. Past Medical Family Social History Allergies: Allergies albuterol Allergy (Verified 02/27/21 10:00) caffeine Allergy (Verified 06/07/23 13:24) epinephrine Allergy (Verified 06/07/23 13:24) phenobarbital Allergy (Verified 06/07/23 13:24) Review of Systems ROS changes noted: see HPI Vital Signs and I&O's Vital Signs: Vital Signs Temperature 97.9 F Pulse Rate [Bilateral Radial] 62 Pulse Rate 55 Respiratory Rate 20 Blood Pressure [Left Arm] 131/63 O2 Sat by Pulse Oximetry 97 O2 Sat by Pulse Oximetry 98 Intake and Output: Intake & Output 12/29/23 12/30/23 12/31/23 01/01/24 23:59 23:59 23:59 23:59 Intake Total 900 / 900 4243 / 4243 3087 / 3087 140 / 140 Balance 900 / 900 4243 / 4243 3087 / 3087 140 / 140 Physical Exam Oriented: Normal Eyes: Normal Ear: Normal Nose: Normal Throat: Normal Respiratory: Normal Cardiovascular: Normal : Normal Auscultation: Bowel Sounds: Normal Tenderness: Suprapubic Skin: Normal Musculoskeletal: Normal Psychiatric: Normal Mood Description: Calm and Appropriate Affect: Normal Speech Pattern: Clear and Appropriate Laboratory and Diagnostics 01/01/24 05:20 01/01/24 05:20 Labs: 12/29/23 13:20 Blood Blood Culture - Preliminary 12/29/23 13:10 Blood Blood Culture - Final Escherichia Coli 12/29/23 12:53 Urine,Clean Catch Urine Culture - Final Klebsiella Pneumoniae Escherichia Coli Laboratory WBC 3.6 X10^3/uL (3.6-10.0) 01/01/24 05:20 RBC 3.55 X10^6/uL (3.5-5.4) 01/01/24 05:20 Hgb 8.8 g/dL (12.0-16.0) L 01/01/24 05:20 Hct 27.7 % (36.0-47.0) L 01/01/24 05:20 MCV 78.0 fL (80.0-100.0) L 01/01/24 05:20 MCH 24.8 pg (27.0-34.0) L 01/01/24 05:20 MCHC 31.7 g/dL (33.0-35.0) L 01/01/24 05:20 RDW 19.4 % (11.6-16.5) H 01/01/24 05:20 Plt Count 116 X10^3/uL (150.0-450.0) L 01/01/24 05:20 Plt Count Comment Decreased (ADEQUATE) A 12/31/23 05:48 MPV 7.8 fL (7.4-11.0) 01/01/24 05:20 Neut % (Auto) 49.9 % (42.0-75.0) 01/01/24 05:20 Lymph % (Auto) 33.3 % (21.0-51.0) 01/01/24 05:20 [place] % (Auto) 12.0 % (0.0-13.0) 01/01/24 05:20 Eos % (Auto) 3.4 % (0.9-2.9) H 01/01/24 05:20 Baso % (Auto) 1.4 % (0.2-1.0) H 01/01/24 05:20 Neut # (Auto) 1.8 x10^3/uL (2.2-4.8) L 01/01/24 05:20 Lymph # (Auto) 1.2 X10^3/uL (1.3-2.9) L 01/01/24 05:20 [place] # (Auto) 0.4 x10^3/uL (0.3-0.8) 01/01/24 05:20 Eos # (Auto) 0.1 x10^3/uL (0.0-0.2) 01/01/24 05:20 Baso # (Auto) 0.1 X10^3/uL (0.0-0.1) 01/01/24 05:20 Absolute Nucleated RBC 0.1 /100WBC 01/01/24 05:20 Plt Morphology Comment Normal (NORMAL) 12/31/23 05:48 RBC Morphology Abnormal (NORMAL) A 12/31/23 05:48 Anisocytosis 1+ A 12/31/23 05:48 Sodium 144 mmol/L (136-145) 01/01/24 05:20 Corrected Sodium TNP 01/01/24 05:20 Potassium 3.4 mmol/L (3.5-5.1) L 01/01/24 05:20 Chloride 110 mmol/L (98-107) H 01/01/24 05:20 Carbon Dioxide 29.4 mmol/L (21-32) 01/01/24 05:20 BUN 4 mg/dL (7-18) L 01/01/24 05:20 Creatinine 0.78 mg/dL (0.55-1.02) 01/01/24 05:20 Est GFR (MDRD) Af Amer > 60 (>60) 01/01/24 05:20 Est GFR (MDRD) Non-Af > 60 (>60) 01/01/24 05:20 Glucose 90 mg/dL (65-99) 01/01/24 05:20 Lactic Acid 1.7 mmol/L (0.4-2.0) 12/29/23 13:10 Calcium 8.0 mg/dL (8.5-10.1) L 01/01/24 05:20 Corrected Calcium 9.3 mg/dL (8.5-10.1) 01/01/24 05:20 Magnesium 2.1 mg/dL (2.0-2.9) 12/31/23 05:48 Total Bilirubin 0.40 mg/dL (0.2-1.0) 01/01/24 05:20 AST 20 Units/L (15-37) 01/01/24 05:20 ALT 18 Units/L (12-78) 01/01/24 05:20 Alkaline Phosphatase 58 Units/L (46-116) 01/01/24 05:20 Troponin I High Sens 24.0 ng/L (4.0-60.0) 12/29/23 13:10 Total Protein 5.4 g/dL (6.4-8.2) L 01/01/24 05:20 Albumin 2.4 g/dL (3.4-5.0) L 01/01/24 05:20 Globulin 3.0 g/dL (2.5-4.5) 01/01/24 05:20 Albumin/Globulin Ratio 0.8 Ratio (1.1-2.1) L 01/01/24 05:20 Lipase 12 Units/L (16-77) L 12/29/23 13:10 Specimen Type Clean catch urine 12/29/23 12:53 Urine Color Yellow (YELLOW) 12/29/23 12:53 Urine Appearance Cloudy (CLEAR) 12/29/23 12:53 Urine pH 6.0 (5.0 - 8.0) 12/29/23 12:53 Ur Specific [place] 1.015 (1.000-1.030) 12/29/23 12:53 Urine Protein 2+ (NEGATIVE) 12/29/23 12:53 Urine Glucose (UA) Negative (NEGATIVE) 12/29/23 12:53 Urine Ketones Negative (NEGATIVE) 12/29/23 12:53 Urine Blood 2+ (NEGATIVE) 12/29/23 12:53 Urine Nitrite Negative (NEGATIVE) 12/29/23 12:53 Urine Bilirubin Negative (NEGATIVE) 12/29/23 12:53 Urine Urobilinogen Normal (NORMAL) 12/29/23 12:53 Ur Leukocyte Esterase 3+ (NEGATIVE) 12/29/23 12:53 Urine RBC 5-10 /HPF (0-3) A 12/29/23 12:53 Urine WBC Tntc /HPF (0-5) A 12/29/23 12:53 Ur Squamous Epith Cells Rare /HPF (NEGATIVE) 12/29/23 12:53 Urine Bacteria 3+ /HPF (NEGATIVE) 12/29/23 12:53 Ur Culture Indicated? Yes/culture set up 12/29/23 12:53 Plan (1) E coli bacteremia: Status: Acute (2) Acute UTI: Status: Acute Plan: IV zosyn Urine/blood cultures pending (3) Altered mental status: Status: Acute (4) Multilevel degenerative joint disease of spine: Status: Acute (5) Atrial fibrillation: Status: Acute Qualifiers: Atrial fibrillation type: paroxysmal Qualified Code(s): I48.0 - Paroxysmal atrial fibrillation (6) Hypothyroidism: Status: Chronic Qualifiers: Hypothyroidism type: acquired Qualified Code(s): E03.9 - Hypothyroidism, unspecified (7) Essential hypertension: Status: Chronic
[2024-01-01] MEDS: CONSULT PHARMACY - POTASSIUM & MAGNESIUM XX SCH (19:13)
[2024-01-02 05:08] LABS: BASOPHILS % (AUTO) 1.3 % (0.2-1.0); EOSINOPHILS # (AUTO) 0.1 x10^3/uL (0.0-0.2); EOSINOPHILS % (AUTO) 1.8 % (0.9-2.9); HEMATOCRIT 26.4 % (36.0-47.0); HEMOGLOBIN 8.6 g/dL (12.0-16.0); LYMPHOCYTES # (AUTO) 1.2 X10^3/uL (1.3-2.9); LYMPHOCYTES % (AUTO) 34.8 % (21.0-51.0); MEAN CORPUSCULAR HEMOGLOBIN 25.3 pg (27.0-34.0); MEAN CORPUSCULAR HGB CONC 32.6 g/dL (33.0-35.0); MEAN CORPUSCULAR VOLUME 77.5 fL (80.0-100.0); MEAN PLATELET VOLUME 7.8 fL (7.4-11.0); MONOCYTES # (AUTO) 0.2 x10^3/uL (0.3-0.8); MONOCYTES % (AUTO) 7.2 % (0.0-13.0); NEUTROPHILS # (AUTO) 1.9 x10^3/uL (2.2-4.8); NEUTROPHILS % (AUTO) 54.9 % (42.0-75.0); PLATELET COUNT 114 X10^3/uL (150.0-450.0); RED BLOOD COUNT 3.41 X10^6/uL (3.5-5.4); RED CELL DISTRIBUTION WIDTH 19.7 % (11.6-16.5); WHITE BLOOD COUNT 3.4 X10^3/uL (3.6-10.0)
[2024-01-02 05:13] LABS: ALANINE AMINOTRANSFERASE 19 Units/L (12-78); ALBUMIN 2.4 g/dL (3.4-5.0); ALKALINE PHOSPHATASE 56 Units/L (46-116); ASPARTATE AMINO TRANSFERASE 18 Units/L (15-37); BLOOD UREA NITROGEN 4 mg/dL (7-18); CALCIUM 8.1 mg/dL (8.5-10.1); CARBON DIOXIDE 27.8 mmol/L (21-32); CHLORIDE 110 mmol/L (98-107); COR CA(FOR HYPOALB) 9.4 mg/dL (8.5-10.1); CREATININE 0.81 mg/dL (0.55-1.02); GLUCOSE 89 mg/dL (65-99); POTASSIUM 3.6 mmol/L (3.5-5.1); SODIUM 145 mmol/L (136-145); TOTAL PROTEIN 5.6 g/dL (6.4-8.2); eGFR NON BLACK RACES > 60 (>60)
[2024-01-02] MEDS ORDERED: CONSULT PHARMACY - POTASSIUM & MAGNESIUM XX SCH ×2 (07:00)
--- NOTE | 2024-01-02 07:57 | RAD ---
EXAM: AP chest HISTORY: Cough COMPARISON: January 01, 2022 FINDINGS: Cardiomegaly with significant dilatation of the thoracic aorta. Mild interstitial prominence is pre sent without evidence for lobar consolidation, pneumothorax or pleural fluid. IMPRESSION: Stable cardiac prominence with aortic ectasia. No evidence for localized pneumonia, pulmonary edema or pleural fluid. THIS IS AN ELECTRONICALLY VERIFIED FINAL REPORT 01/02/2024 7:54 AM - Electronically signed by Georges Ureña MD
[2024-01-02] MEDS: MAG-OX TAB PO SCH (08:49)
[2024-01-02] MEDS: K-DUR TAB 20 MEQ PO SCH (08:50)
[2024-01-02] MEDS: NYSTATIN SUSP PO SCH ×2 (12:47→16:40)
[2024-01-03 00:47] VITALS: RESP 18
[2024-01-03 06:35] LABS: BASOPHILS # (AUTO) 0.1 X10^3/uL (0.0-0.1); BASOPHILS % (AUTO) 3.3 % (0.2-1.0); EOSINOPHILS # (AUTO) 0.2 x10^3/uL (0.0-0.2); EOSINOPHILS % (AUTO) 4.9 % (0.9-2.9); HEMATOCRIT 28.5 % (36.0-47.0); HEMOGLOBIN 9.1 g/dL (12.0-16.0); LYMPHOCYTES # (AUTO) 1.1 X10^3/uL (1.3-2.9); LYMPHOCYTES % (AUTO) 30.2 % (21.0-51.0); MEAN CORPUSCULAR HGB CONC 32.1 g/dL (33.0-35.0); MEAN PLATELET VOLUME 7.7 fL (7.4-11.0); MONOCYTES # (AUTO) 0.2 x10^3/uL (0.3-0.8); MONOCYTES % (AUTO) 5.8 % (0.0-13.0); NEUTROPHILS # (AUTO) 2.1 x10^3/uL (2.2-4.8); NEUTROPHILS % (AUTO) 55.8 % (42.0-75.0); PLATELET COUNT 134 X10^3/uL (150.0-450.0); RED BLOOD COUNT 3.65 X10^6/uL (3.5-5.4); RED CELL DISTRIBUTION WIDTH 19.8 % (11.6-16.5); WHITE BLOOD COUNT 3.8 X10^3/uL (3.6-10.0)
[2024-01-03 06:53] LABS: ALANINE AMINOTRANSFERASE 22 Units/L (12-78); ALBUMIN 2.7 g/dL (3.4-5.0); ALKALINE PHOSPHATASE 67 Units/L (46-116); ASPARTATE AMINO TRANSFERASE 22 Units/L (15-37); BLOOD UREA NITROGEN 2 mg/dL (7-18); CALCIUM 8.5 mg/dL (8.5-10.1); CARBON DIOXIDE 28.4 mmol/L (21-32); CHLORIDE 109 mmol/L (98-107); COR CA(FOR HYPOALB) 9.5 mg/dL (8.5-10.1); CREATININE 0.78 mg/dL (0.55-1.02); GLUCOSE 72 mg/dL (65-99); POTASSIUM 3.6 mmol/L (3.5-5.1); SODIUM 144 mmol/L (136-145); TOTAL PROTEIN 6.1 g/dL (6.4-8.2); eGFR NON BLACK RACES > 60 (>60)
[2024-01-03 06:58] LABS: PLATELET MORPHOLOGY COMMENT NORMAL (NORMAL)
[2024-01-03 06:59] LABS: ANISOCYTOSIS SLIGHT; HYPOCHROMASIA SLIGHT; MICROCYTOSIS SLIGHT
[2024-01-03] MEDS ORDERED: CONSULT PHARMACY - POTASSIUM & MAGNESIUM XX SCH (08:00)
[2024-01-03] MEDS: MAG-OX TAB PO SCH (08:36)
[2024-01-03] MEDS: K-DUR TAB 20 MEQ PO SCH (08:36)
[2024-01-03 10:24] VITALS: BP 151/74; PULSE 54; TEMP 98.7; O2SAT 90
== END 2024-01-03 10:30 | disposition home health service (06) | DRG 690 ==
LOC: ER 12:26 → MED/SURG 15:02
PROVIDERS: ADMIT Internal Medicine; ATTEND Internal Medicine
DX: I48.0 Paroxysmal atrial fibrillation; B96.29 Other Escherichia coli [E. coli] as the cause of diseases classified elsewhere; N39.0 Urinary tract infection, site not specified; R26.89 Other abnormalities of gait and mobility; K21.9 Gastro-esophageal reflux disease without esophagitis; I10 Essential (primary) hypertension; E87.0 Hyperosmolality and hypernatremia; B96.1 Klebsiella pneumoniae [K. pneumoniae] as the cause of diseases classified elsewhere; R41.82 Altered mental status, unspecified; E03.8 Other specified hypothyroidism; R94.31 Abnormal electrocardiogram [ECG] [EKG]